=== PATIENT | female | born 1950 | race Caucasian/White ===

== ENCOUNTER 2018-10-05 18:49 | Emergency (ER) | payer MEDICARE, OTHER ==
[~2018-10-05] VITALS: Ht 152.4 cm; Wt 45.4 kg
[2018-10-05 20:23] LABS: BASOPHILS % (AUTO) 0 % (0-10); EOSINOPHILS # (AUTO) 0.1 10^3/uL (0.0-0.3); EOSINOPHILS % (AUTO) 1 % (0-10); HEMATOCRIT 42 % (35-52); HEMOGLOBIN 14.1 G/DL (11.5-16.0); LYMPHOCYTES # (AUTO) 1.5 X 10^3 (1.0-4.0); LYMPHOCYTES % (AUTO) 17 % (12-44); MEAN CORPUSCULAR HEMOGLOBIN 32 PG (25-34); MEAN CORPUSCULAR HGB CONC 34 G/DL (32-36); MEAN CORPUSCULAR VOLUME 94 FL (80-99); MEAN PLATELET VOLUME 9.8 FL (7.4-10.4); MONOCYTES # (AUTO) 0.9 X 10^3 (0.0-1.0); MONOCYTES % (AUTO) 10 % (0-12); NEUTROPHILS # (AUTO) 6.1 X 10^3 (1.8-7.8); NEUTROPHILS % (AUTO) 71 % (42-75); PLATELET COUNT 278 10^3/uL (130-400); RED CELL DISTRIBUTION WIDTH 14.3 % (10.0-14.5); WHITE BLOOD COUNT 8.6 10^3/uL (4.3-11.0)
[2018-10-05 20:23] LABS: BILIRUBIN,URINE NEGATIVE (NEGATIVE); CLARITY,URINE CLEAR; COLOR,URINE YELLOW; GLUCOSE, URINE (UA) NEGATIVE (NEGATIVE); KETONES,URINE NEGATIVE (NEGATIVE); LEUKOCYTE ESTERASE ,URINE NEGATIVE (NEGATIVE); NITRITE,URINE NEGATIVE (NEGATIVE); PH,URINE 7 (5-9); PROTEIN,URINE NEGATIVE (NEGATIVE); UROBILINOGEN,URINE NORMAL (NORMAL)
--- NOTE | 2018-10-05 20:26 | ED Back Pain ---
General Chief Complaint: Back Problems Stated Complaint: ABD/BACK PAIN Nursing Triage Note: PATIENT STATES THAT SHE HAS BEEN HAVING LOWER BACK/RIGHT HIP PAIN X1 WEEK. SHE WAS GIVEN TRAMADOL BUT IT HAS NOT HELPED. TODAY SHE BEGAN HAVING NAUSEA AND ABD PAIN. DENIES OTHER URINARY SYMPTOMS. Nursing Sepsis Screen: Possible Sepsis Risk Source of Information: Patient Exam Limitations: No Limitations History of Present Illness Date Seen by Provider: Oct 05, 2018 Time Seen by Provider: 20:23 Initial Comments To ER with right flank pain constant for one week. She's had some intermittent lower abdominal cramping midline. No dysuria. No bowel changes. No fevers or chills and no history of this. She is from [place], she is here for celebration of life for her son. She states that she was sleeping on a chair in the ICU for 4 days with him before he and she suspected initially that that was the cause of her pain. Location: Lumbar Spine Timing/Duration: 1 Week Severity: Moderate Pain/Injury Location: Back Associated Symptoms: lower back pain Allergies and Home Medications Allergies Coded Allergies: Sulfa (Sulfonamide Antibiotics) (Verified Allergy, Unknown, 10/05/18) Home Medications Hydrocodone Bit/Acetaminophen 1 Tab Tab, 1 EACH PO Q4-6HR PRN for PAIN-MODERATE Prescribed by: ALMAS MAGANA on 10/05/184 Patient Home Medication List Home Medication List Reviewed: Yes Review of Systems Constitutional: see HPI EENTM: see HPI Respiratory: no symptoms reported Cardiovascular: no symptoms reported Genitourinary: no symptoms reported Musculoskeletal: see HPI Skin: no symptoms reported Psychiatric/Neurological: No Symptoms Reported Past Ttktwyu-Iptyev-Sltxqf Hx Patient Social History Alcohol Use: Occasionally Uses Recreational Drug Use: No Smoking Status: Former Smoker 2nd Hand Smoke Exposure: No Recent Foreign Travel: No Contact w/Someone Who Travel: No Recent Infectious Disease Expo: No Past Medical History Surgeries: Yes (LUNG TRANSPLANT, COLON RESECTION) Gallbladder Respiratory: Yes COPD Cardiac: No Neurological: No Genitourinary: No Gastrointestinal: Yes Gastroesophageal Reflux Endocrine: Yes Hypothyroidsim Cancer: No Psychosocial: Yes Depression Physical Exam Vital Signs Vital Signs - First Documented 10/05/18 19:09 Temp 96.3 Pulse 95 Resp 20 B/P (MAP) 138/87 (104) Pulse Ox 97 Capillary Refill : Less Than 3 Seconds Height, Weight, BMI Height: 5'0" Weight: 100lbs. 0oz. 45.792484dn; BMI Method:Actual General Appearance: No Apparent Distress, WD/WN HEENT: PERRL/EOMI, TMs Normal Neck: Full Range of Motion, Normal Inspection Cardiovascular: Regular Rate, Rhythm, Normal Peripheral Pulses Respiratory: No Accessory Muscle Use, No Respiratory Distress Gastrointestinal: Normal Bowel Sounds, Non Tender, Soft Extremity: Normal Capillary Refill, Normal Inspection Neurologic/Psychiatric: Alert, Oriented x3 Skin: Normal Color, Warm/Dry Progress/Results/Core Measures Results/Orders Lab Results Laboratory Tests Test 10/05/18 20:11 10/05/18 20:15 Range/Units Urine Color YELLOW Urine Clarity CLEAR Urine pH 7 5-9 Urine Specific [place] 1.005 L 1.016-1.022 Urine Protein NEGATIVE NEGATIVE Urine Glucose (UA) NEGATIVE NEGATIVE Urine Ketones NEGATIVE NEGATIVE Urine Nitrite NEGATIVE NEGATIVE Urine Bilirubin NEGATIVE NEGATIVE Urine Urobilinogen NORMAL NORMAL MG/DL Urine Leukocyte Esterase NEGATIVE NEGATIVE Urine RBC (Auto) NEGATIVE NEGATIVE Urine RBC NONE /HPF Urine WBC NONE /HPF Urine Crystals NONE /LPF Urine Bacteria TRACE /HPF Urine Casts NONE /LPF Urine Mucus NEGATIVE /LPF Urine Culture Indicated NO Urine Opiates Screen NEGATIVE NEGATIVE Urine Oxycodone Screen NEGATIVE NEGATIVE Urine Methadone Screen NEGATIVE NEGATIVE Urine Propoxyphene Screen NEGATIVE NEGATIVE Urine Barbiturates Screen NEGATIVE NEGATIVE Ur Tricyclic Antidepressants Screen NEGATIVE NEGATIVE Urine Phencyclidine Screen NEGATIVE NEGATIVE Urine Amphetamines Screen NEGATIVE NEGATIVE Urine Methamphetamines Screen NEGATIVE NEGATIVE Urine Benzodiazepines Screen NEGATIVE NEGATIVE Urine Cocaine Screen NEGATIVE NEGATIVE Urine Cannabinoids Screen NEGATIVE NEGATIVE White Blood Count 8.6 4.3-11.0 10^3/uL Red Blood Count 4.44 4.35-5.85 10^6/uL Hemoglobin 14.1 11.5-16.0 G/DL Hematocrit 42 35-52 % Mean Corpuscular Volume 94 80-99 FL Mean Corpuscular Hemoglobin 32 25-34 PG Mean Corpuscular Hemoglobin Concent 34 32-36 G/DL Red Cell Distribution Width 14.3 10.0-14.5 % Platelet Count 278 130-400 10^3/uL Mean Platelet Volume 9.8 7.4-10.4 FL Neutrophils (%) (Auto) 71 42-75 % Lymphocytes (%) (Auto) 17 12-44 % Monocytes (%) (Auto) 10 0-12 % Eosinophils (%) (Auto) 1 0-10 % Basophils (%) (Auto) 0 0-10 % Neutrophils # (Auto) 6.1 1.8-7.8 X 10^3 Lymphocytes # (Auto) 1.5 1.0-4.0 X 10^3 Monocytes # (Auto) 0.9 0.0-1.0 X 10^3 Eosinophils # (Auto) 0.1 0.0-0.3 10^3/uL Basophils # (Auto) 0.0 0.0-0.1 10^3/uL Sodium Level 140 135-145 MMOL/L Potassium Level 3.5 L 3.6-5.0 MMOL/L Chloride Level 102 98-107 MMOL/L Carbon Dioxide Level 25 21-32 MMOL/L Anion Gap 13 5-14 MMOL/L Blood Urea Nitrogen 14 7-18 MG/DL Creatinine 0.95 0.60-1.30 MG/DL Estimat Glomerular Filtration Rate 58 BUN/Creatinine Ratio 15 Glucose Level 98 70-105 MG/DL Calcium Level 10.1 8.5-10.1 MG/DL Corrected Calcium 9.8 8.5-10.1 MG/DL Total Bilirubin 1.2 H 0.1-1.0 MG/DL Aspartate Amino Transf (AST/SGOT) 57 H 5-34 U/L Alanine Aminotransferase (ALT/SGPT) 28 0-55 U/L Alkaline Phosphatase 113 40-136 U/L Total Protein 7.4 6.4-8.2 GM/DL Albumin 4.4 3.2-4.5 GM/DL Lipase 29 8-78 U/L My Orders Orders - ALMAS MAGANA STANDPIPE TENDER Cbc With Automated Diff (10/05/18 20:11) Comprehensive Metabolic Panel (10/05/18 20:11) Ua Culture If Indicated (10/05/18 20:11) Ketorolac Injection (Toradol Injection) (10/05/18 20:30) Fentanyl Injection (Sublimaze Injection (10/05/18 20:30) Drug Screen Stat (Urine) (10/05/18 20:33) Ct Abdomen/Pelvis W (10/05/18 20:49) Iohexol Injection (Omnipaque 350 Mg/Ml 1 (10/05/18 21:00) Received Contrast (Hold Metformin- Contr (10/05/18 21:00) Ns (Ivpb) (Sodium Chloride 0.9% Ivpb Bag (10/05/18 21:00) Lipase (10/05/18 21:56) Rx-Hydrocodone/Apap 5-325 Mg (Rx-Vicodin (10/05/18 22:30) Medications Given in ED Current Medications Medications Dose Ordered Sig/Pooja Route Start Time Stop Time Status Last Admin Dose Admin Fentanyl Citrate 25 mcg ONCE ONCE IVP 10/05/18 20:30 10/05/18 20:31 DC 10/05/18 20:31 25 MCG Iohexol 100 ml ONCE ONCE IV 10/05/18 21:00 10/05/18 21:01 DC 10/05/18 21:10 60 ML Ketorolac Tromethamine 15 mg ONCE ONCE IVP 10/05/18 20:30 10/05/18 20:31 DC 10/05/18 20:30 15 MG Sodium Chloride 100 ml ONCE ONCE IV 10/05/18 21:00 10/05/18 21:01 DC 10/05/18 21:11 80 ML Vital Signs/I&O 10/05/18 19:09 Temp 96.3 Pulse 95 Resp 20 B/P (MAP) 138/87 (104) Pulse Ox 97 Blood Pressure Mean: 104 Departure Communication (Admissions) I discussed with the patient her pancreatic ductal dilatation and she is aware of this, states "yeah, theyre doing surgery for that" Impression Primary Impression: Back pain Disposition: 01 HOME, SELF-CARE Condition: Improved Departure-Patient Inst. Decision time for Depature: 22:22 Patient Instructions: Low Back Pain (DC) Add. Discharge Instructions: 1. Follow-up with your doctor next week 2. Stop taking the Ultram, start taking the hydrocodone. Return to ER for any concerns. All discharge instructions reviewed with patient and/or family. Voiced understanding. Scripts Hydrocodone Bit/Acetaminophen (Hydrocodone/Acetaminophen 5/325mg Tablet) 1 Tab Tab 1 EACH PO Q4-6HR PRN for PAIN-MODERATE MDD 10 for 3 Days, #14 TAB Prov: ALMAS MAGANA APRN 10/05/18 ALMAS MAGANA APRN Oct 05, 2018 20:26
[2018-10-05] MEDS ORDERED: KETOROLAC 30 MG/ML VIAL IVP ONE (20:30)
[2018-10-05] MEDS ORDERED: fentaNYL INJECTION 100 MCG/2 ML AMP IVP ONE (20:30)
[2018-10-05 20:31] LABS: BACTERIA,URINE TRACE /HPF
[2018-10-05 20:45] LABS: ALBUMIN 4.4 GM/DL (3.2-4.5); BILIRUBIN,TOTAL 1.2 MG/DL (0.1-1.0); CALCIUM 10.1 MG/DL (8.5-10.1); CREATININE SERUM 0.95 MG/DL (0.60-1.30); POTASSIUM 3.5 MMOL/L (3.6-5.0); TOTAL PROTEIN 7.4 GM/DL (6.4-8.2)
[2018-10-05 20:56] LABS: AMPHETAMINE SCREEN, URINE NEGATIVE (NEGATIVE); BARBITURATE SCREEN URINE NEGATIVE (NEGATIVE); BENZODIAZEPINES SCREEN URINE NEGATIVE (NEGATIVE); CANNABINOID SCREEN, URINE NEGATIVE (NEGATIVE); COCAINE SCREEN URINE NEGATIVE (NEGATIVE); METHADONE STAT NEGATIVE (NEGATIVE); METHAMPHETAMINE SCREEN URINE S NEGATIVE (NEGATIVE); OPIATE SCREEN URINE NEGATIVE (NEGATIVE); OXYCODONE STAT NEGATIVE (NEGATIVE); PROPOXYPHENE STAT NEGATIVE (NEGATIVE); TRICYCLIC ANTIDEPRESSANTS SCRE NEGATIVE (NEGATIVE)
[2018-10-05] MEDS ORDERED: NS 100 ML (IVPB) BAG IV ONE (21:00)
[2018-10-05] MEDS ORDERED: IOHEXOL 350 MG/ML 100 ML (OMNIPAQUE 350) VIAL IV ONE (21:00)
[2018-10-05] MEDS ORDERED: HOLD METFORMIN - RECEIVED CONTRAST 20 ML VIAL IV SCH (21:00)
--- NOTE | 2018-10-05 21:35 | Diagnostic Imaging Report ---
PROCEDURE: CT abdomen and pelvis with contrast. TECHNIQUE: Multiple contiguous axial images were obtained through the abdomen and pelvis after administration of intravenous contrast. Auto Exposure Controls were utilized during the CT exam to meet ALARA standards for radiation dose reduction. INDICATION: Lung transplants, abdominal and back pain COMPARISON: None FINDINGS: Nonspecific hyperlucency seen in the right base. The left lung base is clear. There is no infiltrate or effusion. The gallbladder surgically absent. Solid organs, vascular structures and small bowel are unremarkable. Postoperative changes seen involving the colon. There is some mild constipation primarily in the left midabdomen without obstruction, ileus or inflammation. Uterus is surgically absent. Distal ureters and urinary bladder are normal. The abdominal wall is intact. Osseous structures are age-appropriate. IMPRESSION: 1. Status post cholecystectomy. Not mentioned above, prominent intra-and extra bile ducts and pancreatic duct are seen. However, no obvious obstructing lesion is identified. Please correlate with the liver function test. Consider MRCP for further evaluation on a nonemergent basis. 2. Surgically absent uterus. 3. Status post bowel resection. There is mild constipation in the remaining colon. No obstruction or inflammation is seen. Dictated by: Dictated on workstation # [id number]
[2018-10-05] MEDS ORDERED: ACHD5005 PO (22:23)
[2018-10-05] MEDS ORDERED: RX-HYDROCODONE/APAP 5/325 MG #4 TAB PK PO PRN (22:30)
[2018-10-06 00:07] VITALS: BP 133/75
== END 2018-10-05 22:35 | disposition home or self-care (01) ==
LOC: EDUNIT# 18:49 → ER 18:51
DX: M54.5 Low back pain (principal); J44.9 Chronic obstructive pulmonary disease, unspecified; F32.9 Major depressive disorder, single episode, unspecified; K21.9 Gastro-esophageal reflux disease without esophagitis; E03.9 Hypothyroidism, unspecified; Z94.2 Lung transplant status; Z88.2 Allergy status to sulfonamides; Z87.891 Personal history of nicotine dependence; Z98.890 Other specified postprocedural states
CPT/HCPCS: 36415; 74177; 80053; 80306; 81000; 83690; 85025

== ENCOUNTER 2021-02-16 18:19 | Inpatient (IN) | payer MEDICARE ==
[~2021-02-16] VITALS: Ht 152 cm; Wt 45.5 kg
[~2021-02-16 18:19] MED LIST: ACHD5005 PO
--- NOTE | 2021-02-16 18:43 | ED Respiratory ---
General Stated Complaint: SOB,COUGH,UTI,COVID NEG Source: patient History of Present Illness Date Seen by Provider: Feb 16, 2021 Time Seen by Provider: 18:34 Initial Comments PT ARRIVES VIA POV--SENT HERE FROM [facility] PT IS HERE VISITING FROM [place] SINCE PT HAS HISTORY OF COPD AND S/P LUNG TRANSPLANT 5 YEARS AGO--LAST SAW TRANSPLANT DR 6 MONTHS AGO PT DOES NOT HAVE HOME O2 HAS NOT USED INHALER OR NEBULIZER FOR YEARS C/O COUGH AND SHORTNESS OF BREATH X 2-3 DAYS HAS HAD UTI SYMPTOMS FOR ABOUT 3 WEEKS HAS HAD NAUSEA, NO VOMITING, STOOLS HAVE BEEN LOOSE NO ABDOMINAL PAIN HAS HAD MILD HEADACHE NO CHEST PAIN NO SWELLING IN LEGS/FEET OR PAIN IN CALVES NO BODY ACHES NO LOSS OF TASTE OR SMELL HAD SUBJECTIVE FEVER AND SWEATS/CHILLS WENT TO [facility] TODAY FOR THIS PROBLEM, O2 SAT WAS 80% ON ROOM AIR, UP TO MID 90'S ON O2 AT 2L/NC--THEN SENT RAPID COVID AND FLU TESTS WERE NEGATIVE THERE PT WAS DX WITH UTI THERE BUT NO MEDICATIONS WERE GIVEN HAS NOT TAKEN ANYTHING FOR SYMPTOMS SYMPTOMS NO DIFFERENT TODAY HAS HAD COVID-19 VACCINE X 3 HAS ALSO HAD FLU VACCINE MISSED DOSES OF MEDICATIONS Allergies and Home Medications Allergies Coded Allergies: Sulfa (Sulfonamide Antibiotics) (Verified Allergy, Unknown, 10/05/18) Patient Home Medication List Hydrocodone Bit/Acetaminophen (Lortab 5 Mg Tablet) 1 Tab Tab, 1 EACH PO Q4-6HR PRN for PAIN-MODERATE Prescribed by: ALMAS MAGANA on 10/05/18 4899 Review of Systems Review of Systems Constitutional: see HPI, chills, diaphoresis, fever EENTM: see HPI Respiratory: see HPI, cough, short of breath Cardiovascular: No chest pain, No edema, No palpitations, No syncope Gastrointestinal: see HPI; No abdominal pain; diarrhea, nausea; No vomiting Genitourinary: see HPI, dysuria Musculoskeletal: no symptoms reported Skin: no symptoms reported Psychiatric/Neurological: See HPI, Headache Hematologic/Lymphatic: No Symptoms Reported Immunological/Allergic: see HPI, transplant Past Kzxkajw-Qtjrao-Oknvsq Hx Patient Social History Tobacco Use?: Yes Tobacco type used: Cigarettes Smoking Status: Former Smoker Substance use?: No Alcohol Use?: No Past Medical History Surgeries: Yes (LUNG TRANSPLANT, COLON RESECTION) Abdominal, Bowel Surgery, Gallbladder, Pneumonectomy Respiratory: Yes (LUNG TRANSPLANT FOR COPD) COPD Cardiac: Yes Hypertension 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 Genitourinary: Yes Bladder Infection Gastrointestinal: Yes (COLON RESECTION FOR ISCHEMIC BOWEL) Gastroesophageal Reflux Musculoskeletal: No Endocrine: Yes Hypothyroidsim HEENT: No Cancer: No Psychosocial: Yes Depression Integumentary: Yes (SHINGLES RIGHT ARM 09/2020) Blood Disorders: No Family Medical History SOCIAL HISTORY: -SMOKED 1-2 PPD, QUIT 5 YEARS AGO -DENIES ETOH -DENIES DRUG USE PAST SURGICAL HISTORY: -LEFT LUNG TRANSPLANT 5 YEARS AGO -COLON RESECTION OR ISCHEMIC BOWEL--STATES WHILE IN HOSPITAL FOR LUNG TRANSPLANT SURGERY, SHE DESCRIBES MULTIORGAN FAILURE AND STATES "MY COLON " AND SHE HAD COLON RESECTION AT THAT TIME Physical Exam Vital Signs - First Documented 02/16/21 18:34 Temp 36.5 Pulse 87 Resp 18 B/P (MAP) 152/72 (98) Pulse Ox 84 O2 Delivery Room Air Capillary Refill : Height: 5'0" Weight: 100lbs. 0oz. 45.167783bc; BMI Method:Actual General Appearance: WD/WN, no apparent distress, thin, other (DOES NOT APPEAR ILL OR TO BE IN ANY DISCOMFORT OR DISTRESS. ) HEENT: PERRL/EOMI Neck: normal inspection Respiratory: normal breath sounds, no respiratory distress, no accessory muscle use Cardiovascular: normal peripheral pulses, regular rate, rhythm, no edema, no JVD, no murmur Gastrointestinal: non tender, soft Extremities: normal inspection, no pedal edema, no calf tenderness, normal capillary refill Neurologic/Psychiatric: die barber II-XII nml as tested, no motor/sensory deficits, alert, normal mood/affect, oriented x 3 Skin: normal color, warm/dry Progress/Results/Core Measures Suspected Sepsis SIRS Temperature: Pulse: Respiratory Rate: Laboratory Tests 02/16/21 18:53: White Blood Count 9.1 Blood Pressure / Mean: Laboratory Tests 02/16/21 18:53: Creatinine 1.11, Platelet Count 224, Total Bilirubin 0.9 Results/Orders Lab Results Laboratory Tests Test 02/16/21 18:34 02/16/21 18:52 02/16/21 18:53 Range/Units Urine Color DARK YELLOW Urine Clarity CLEAR Urine pH 7.0 5-9 Urine Specific [place] 1.015 L 1.016-1.022 Urine Protein NEGATIVE NEGATIVE Urine Glucose (UA) NEGATIVE NEGATIVE Urine Ketones TRACE H NEGATIVE Urine Nitrite NEGATIVE NEGATIVE Urine Bilirubin NEGATIVE NEGATIVE Urine Urobilinogen 2.0 < = 1.0 MG/DL Urine Leukocyte Esterase 2+ H NEGATIVE Urine RBC (Auto) NEGATIVE NEGATIVE Urine RBC 0-2 /HPF Urine WBC 10-25 H /HPF Urine Squamous Epithelial Cells 0-2 /HPF Urine Renal Epithelial Cells NONE /HPF Urine Crystals NONE /LPF Urine Bacteria FEW H /HPF Urine Casts NONE /LPF Urine Mucus NEGATIVE /LPF Urine Culture Indicated YES Blood Gas Puncture Site L RADIAL Blood Gas Patient Temperature 36.9 Arterial Blood pH 7.44 H 7.37-7.43 Arterial Blood Partial Pressure CO2 43 35-45 MMHG Arterial Blood Partial Pressure O2 153 H 79-93 MMHG Arterial Blood HCO3 29 H 23-27 MMOL/L Arterial Blood Total CO2 29.9 21.0-31.0 MMOL/L Arterial Blood Oxygen Saturation 100 94-100 % Arterial Blood Base Excess 4.6 H -2.5-2.5 MMOL/L Cody Test YES-POS Blood Gas Ventilator Setting NO Blood Gas Inspired Oxygen 3 L White Blood Count 9.1 4.3-11.0 10^3/uL Red Blood Count 4.18 3.80-5.11 10^6/uL Hemoglobin 13.7 11.5-16.0 g/dL Hematocrit 41 35-52 % Mean Corpuscular Volume 99 80-99 fL Mean Corpuscular Hemoglobin 33 25-34 pg Mean Corpuscular Hemoglobin Concent 33 32-36 g/dL Red Cell Distribution Width 13.2 10.0-14.5 % Platelet Count 224 130-400 10^3/uL Mean Platelet Volume 12.5 H 9.0-12.2 fL Immature Granulocyte % (Auto) 0 % Neutrophils (%) (Auto) 66 42-75 % Lymphocytes (%) (Auto) 23 12-44 % Monocytes (%) (Auto) 8 0-12 % Eosinophils (%) (Auto) 2 0-10 % Basophils (%) (Auto) 0 0-10 % Neutrophils # (Auto) 6.0 1.8-7.8 10^3/uL Lymphocytes # (Auto) 2.0 1.0-4.0 10^3/uL Monocytes # (Auto) 0.7 0.0-1.0 10^3/uL Eosinophils # (Auto) 0.2 0.0-0.3 10^3/uL Basophils # (Auto) 0.0 0.0-0.1 10^3/uL Immature Granulocyte # (Auto) 0.0 0.0-0.1 10^3/uL Erythrocyte Sedimentation Rate 16 0-30 MM/HR Sodium Level 142 135-145 MMOL/L Potassium Level 2.9 L 3.6-5.0 MMOL/L Chloride Level 100 98-107 MMOL/L Carbon Dioxide Level 29 21-32 MMOL/L Anion Gap 13 5-14 MMOL/L Blood Urea Nitrogen 22 H 7-18 MG/DL Creatinine 1.11 0.60-1.30 MG/DL Estimat Glomerular Filtration Rate 48 BUN/Creatinine Ratio 20 Glucose Level 110 H 70-105 MG/DL Calcium Level 10.2 H 8.5-10.1 MG/DL Corrected Calcium 10.4 H 8.5-10.1 MG/DL Magnesium Level 1.2 L 1.6-2.4 MG/DL Total Bilirubin 0.9 0.1-1.0 MG/DL Aspartate Amino Transf (AST/SGOT) 15 5-34 U/L Alanine Aminotransferase (ALT/SGPT) 11 0-55 U/L Alkaline Phosphatase 52 40-136 U/L Total Creatine Kinase 35 29-168 U/L Creatine Kinase MB 1.3 <6.6 NG/ML Myoglobin 67.1 10.0-92.0 NG/ML Troponin I < 0.028 <0.028 NG/ML C-Reactive Protein High Sensitivity 0.15 0.00-0.50 MG/DL B-Type Natriuretic Peptide 81.7 <100.0 PG/ML Total Protein 6.3 L 6.4-8.2 GM/DL Albumin 3.7 3.2-4.5 GM/DL Procalcitonin 0.06 <0.10 NG/ML My Orders Orders - ALENA TRUJILLO DO Cbc With Automated Diff (02/16/21 18:37) Comprehensive Metabolic Panel (02/16/21 18:37) Blood Culture (02/16/21 18:37) Sputum Culture (02/16/21 18:37) Urinalysis (02/16/21 18:37) Urine Culture (02/16/21 18:37) Protime With Inr (02/16/21 18:37) Partial Thromboplastin Time (1/3/22 18:37) Chest 1 View, Ap/Pa Only (02/16/21 18:37) Ed Iv/Invasive Line Start (02/16/21 18:37) Ed Iv/Invasive Line Start (02/16/21 18:37) Ekg Tracing (02/16/21 18:37) Troponin I Desiree (02/16/21 18:37) Vital Signs Adult Sepsis Patie Q15M (02/16/21 18:37) O2 (02/16/21 18:37) Remove Rings In Anticipation O (02/16/21 18:37) Lactic Acid Analyzer (02/16/21 18:37) Monitor-Rhythm Ecg Trace Only (02/16/21 18:37) Arterial Blood Gas (02/16/21 18:37) Bnp [place] (02/16/21 18:37) Creatine Kinase (02/16/21 18:37) Creatine Kinase Mb (02/16/21 18:37) Hs C Reactive Protein (02/16/21 18:37) Magnesium (02/16/21 18:37) Procalcitonin (Pct) (02/16/21 18:37) Erythrocyte Sedimentation Rate (02/16/21 18:37) Myoglobin Serum (02/16/21 18:37) Ed Iv/Invasive Line Start (02/16/21 18:37) Lactated Ringers (Lr 1000 Ml Iv Solution (02/16/21 18:45) Ct Angio Chest W (02/16/21 19:31) Potassium Chloride (Tablet) (Klor Con Ta (02/16/21 19:45) Magnesium Oxide Tablet (Mag Ox Tablet) (02/16/21 19:45) Iohexol Injection (Omnipaque 350 Mg/Ml 1 (02/16/21 19:45) Received Contrast (Hold Metformin- Contr (02/16/21 19:45) Ns (Ivpb) (Sodium Chloride 0.9% Ivpb Bag (02/16/21 19:45) Covid-19 External Lab Results (02/16/21 20:26) Medications Given in ED Current Medications Medications Dose Ordered Sig/Pooja Route Start Time Stop Time Status Last Admin Dose Admin Iohexol 100 ml ONCE ONCE IV 02/16/21 19:45 02/16/21 19:46 DC 02/16/21 19:56 52 ML Lactated Ringer's 1,000 ml @ 0 mls/hr Q0M ONCE IV 02/16/21 18:45 02/16/21 18:46 DC 02/16/21 19:03 0 MLS/HR Magnesium Oxide 1,600 mg ONCE ONCE PO 02/16/21 19:45 02/16/21 19:46 DC 02/16/21 19:47 1,600 MG Potassium Chloride 40 meq ONCE ONCE PO 02/16/21 19:45 02/16/21 19:46 DC 02/16/21 19:47 40 MEQ Sodium Chloride 100 ml ONCE ONCE IV 02/16/21 19:45 02/16/21 19:46 DC 02/16/21 19:58 80 ML Vital Signs/I&O 02/16/21 18:34 Temp 36.5 Pulse 87 Resp 18 B/P (MAP) 152/72 (98) Pulse Ox 84 O2 Delivery Room Air Capillary Refill : Progress Note : Progress Note O2 SAT ON ARRIVAL 84% ON ROOM AIR. PLACED ON O2 AT 3L/NC AND SATS UP TO 98% SEPSIS PROTOCOL INITIATED NO COUGH NO DYSPNEA NO FEVER ECG Initial ECG Impression Date: Feb 16, 2021 Initial ECG Impression Time: 18:50 Initial ECG Rate: 74 Initial ECG Rhythm: Normal Sinus Initial ECG Impression: Nonspecific Changes Initial ECG Comparisson: No Previous ECG Available Diagnostic Imaging Comments CXR--PER RADIOLOGIST REPORT AT 193 INDICATION: Cough and hypoxia. Frontal chest obtained at 07:14 p.m. The heart and mediastinal silhouette are unremarkable. There is hyperinflation compatible with COPD. There is some volume loss in the left hemithorax. There is no consolidation or pneumothorax or pleural fluid. IMPRESSION: COPD changes with some volume loss in the left hemithorax. No consolidation or pleural fluid. CT CHEST ANGIOGRAM--PER RADIOLOGIST REPORT AT 2023 FINDINGS: Emphysematous disease in right lung is noted. The right lung is otherwise clear. There are mild emphysematous changes involving the left upper lobe. There is mild groundglass opacification centrally involving the left upper lobe and left lower lobe. There is development of small parenchymal bands in the periphery of the left lung base region which may represent atelectasis or scarring. There is no pleural effusion or pneumothorax. Pulmonary bronchi are unremarkable. There is no mediastinal or hilar lymphadenopathy. There is no axillary lymphadenopathy. Surgical clips in the left hilar region are noted likely related to patient's history of left lung transplant. There is no thoracic aortic aneurysm or dissection. There is no evidence of pulmonary embolism. The gallbladder is surgically absent. There are surgical clips in the left upper quadrant near the stomach. The remainder of the visualized upper abdominal structures show no significant abnormality. There are hypertrophic spurs involving the thoracic spine. There is ill-defined prominence of the left thyroid lobe. IMPRESSION: 1: There is no evidence of pulmonary embolism. There is no thoracic aortic aneurysm or dissection. 2: There are emphysematous lung changes seen with the right lung much more than the left. 3: There is mild groundglass opacification centrally throughout the left lung which is nonspecific. Infectious process or inflammatory process cannot be completely excluded. Comparison to outside chest CT scans would help better evaluate for chronicity. 4: There is no right lung infiltrate. 5: Postop changes related to the left lung transplant. 6: There is prominence of the left thyroid lobe which is ill-defined. Nonemergent thyroid ultrasound is suggested for further evaluation. Reviewed: Reviewed by Me Departure Impression Primary Impression: COPD EXACERBATION WITH HYPOXIA Additional Impressions: Bronchitis Hypoxia S/P lung transplant Departure-Patient Inst. Referrals: NO,LOCAL PHYSICIAN (PCP/Family) Primary Care Physician ALENA TRUJILLO DO Feb 16, 2021 18:43
[2021-02-16] MEDS ORDERED: LACTATED RINGERS 1,000 ML IV ONE (18:45)
[2021-02-16 19:02] LABS: ABG BASE EXCESS 4.6 MMOL/L (-2.5-2.5); ABG OXYGEN SATURATION 100 % (94-100); ABG PCO2 43 MMHG (35-45); ABG PH 7.44 (7.37-7.43); ABG PO2 153 MMHG (79-93); ABG TCO2 29.9 MMOL/L (21.0-31.0)
[2021-02-16 19:03] LABS: ALLENS TEST YES-POS; INSPIRED O2 3 L; PATIENT TEMP 36.9; VENTILATOR NO
[2021-02-16 19:10] LABS: BASOPHILS % (AUTO) 0 % (0-10); EOSINOPHILS # (AUTO) 0.2 10^3/uL (0.0-0.3); EOSINOPHILS % (AUTO) 2 % (0-10); HEMATOCRIT 41 % (35-52); HEMOGLOBIN 13.7 g/dL (11.5-16.0); LYMPHOCYTES % (AUTO) 23 % (12-44); MEAN CORPUSCULAR HEMOGLOBIN 33 pg (25-34); MEAN CORPUSCULAR HGB CONC 33 g/dL (32-36); MEAN CORPUSCULAR VOLUME 99 fL (80-99); MEAN PLATELET VOLUME 12.5 fL (9.0-12.2); MONOCYTES # (AUTO) 0.7 10^3/uL (0.0-1.0); MONOCYTES % (AUTO) 8 % (0-12); NEUTROPHILS % (AUTO) 66 % (42-75); PLATELET COUNT 224 10^3/uL (130-400); WHITE BLOOD COUNT 9.1 10^3/uL (4.3-11.0)
[2021-02-16 19:13] LABS: BILIRUBIN,URINE NEGATIVE (NEGATIVE); CLARITY,URINE CLEAR; COLOR,URINE DARK YELLOW; GLUCOSE, URINE (UA) NEGATIVE (NEGATIVE); KETONES,URINE TRACE (NEGATIVE); LEUKOCYTE ESTERASE ,URINE 2+ (NEGATIVE); NITRITE,URINE NEGATIVE (NEGATIVE); PROTEIN,URINE NEGATIVE (NEGATIVE)
[2021-02-16 19:21] LABS: ALBUMIN 3.7 GM/DL (3.2-4.5); CHLORIDE 100 MMOL/L (98-107); POTASSIUM 2.9 MMOL/L (3.6-5.0); SODIUM 142 MMOL/L (135-145)
[2021-02-16 19:22] LABS: CALCIUM 10.2 MG/DL (8.5-10.1)
[2021-02-16 19:23] LABS: GLUCOSE 110 MG/DL (70-105)
[2021-02-16 19:24] LABS: TOTAL PROTEIN 6.3 GM/DL (6.4-8.2)
[2021-02-16 19:25] LABS: BACTERIA,URINE FEW /HPF; RBC,URINE 0-2 /HPF; SQUAMOUS EPITHELIAL CELL,UR 0-2 /HPF
[2021-02-16 19:25] LABS: BILIRUBIN,TOTAL 0.9 MG/DL (0.1-1.0); CARBON DIOXIDE 29 MMOL/L (21-32)
[2021-02-16 19:27] LABS: ALKALINE PHOSPHATASE 52 U/L (40-136); CREATININE SERUM 1.11 MG/DL (0.60-1.30); GFR ESTIMATED 48
[2021-02-16 19:28] LABS: BUN/CREATININE RATIO 20
[2021-02-16 19:29] LABS: ERYTHROCYTE SEDIMENTATION RATE 16 MM/HR (0-30)
--- NOTE | 2021-02-16 19:29 | Diagnostic Imaging Report ---
INDICATION: Cough and hypoxia. Frontal chest obtained at 07:14 p.m. The heart and mediastinal silhouette are unremarkable. There is hyperinflation compatible with COPD. There is some volume loss in the left hemithorax. There is no consolidation or pneumothorax or pleural fluid. IMPRESSION: COPD changes with some volume loss in the left hemithorax. No consolidation or pleural fluid. Dictated by: Dictated on workstation # [id number]
[2021-02-16 19:30] LABS: ALANINE AMINOTRANSFERASE 11 U/L (0-55); CREATINE KINASE 35 U/L (29-168); MAGNESIUM 1.2 MG/DL (1.6-2.4)
[2021-02-16 19:38] LABS: CREATINE KINASE MB 1.3 NG/ML (<6.6)
[2021-02-16] MEDS ORDERED: IOHEXOL 350 MG/ML 100 ML (OMNIPAQUE 350) VIAL IV ONE (19:45)
[2021-02-16] MEDS ORDERED: KCL 10 MEQ TAB (MICRO K) PO ONE (19:45)
[2021-02-16] MEDS ORDERED: HOLD METFORMIN - RECEIVED CONTRAST 20 ML VIAL IV SCH (19:45)
[2021-02-16] MEDS ORDERED: NS 100 ML (IVPB) BAG IV ONE (19:45)
[2021-02-16] MEDS ORDERED: MAGNESIUM OXIDE (MAG-OX)400 MG TAB PO ONE (19:45)
--- NOTE | 2021-02-16 20:19 | Diagnostic Imaging Report ---
CLINICAL INDICATION: Patient with shortness of air and cough for 2 days. 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 Negative for COVID. EXAM: CT angiogram of the chest performed with 52 cc Omnipaque 350 IV contrast. Coronal and oblique MIP images of the vasculature were created to better evaluate anatomy. Auto Exposure Controls were utilized during the CT exam to meet ALARA standards for radiation dose reduction. COMPARISON: CT scan of the abdomen and pelvis with contrast dated 10/05/2018. FINDINGS: Emphysematous disease in right lung is noted. The right lung is otherwise clear. There are mild emphysematous changes involving the left upper lobe. There is mild groundglass opacification centrally involving the left upper lobe and left lower lobe. There is development of small parenchymal bands in the periphery of the left lung base region which may represent atelectasis or scarring. There is no pleural effusion or pneumothorax. Pulmonary bronchi are unremarkable. There is no mediastinal or hilar lymphadenopathy. There is no axillary lymphadenopathy. Surgical clips in the left hilar region are noted likely related to patient's history of left lung transplant. There is no thoracic aortic aneurysm or dissection. There is no evidence of pulmonary embolism. The gallbladder is surgically absent. There are surgical clips in the left upper quadrant near the stomach. The remainder of the visualized upper abdominal structures show no significant abnormality. There are hypertrophic spurs involving the thoracic spine. There is ill-defined prominence of the left thyroid lobe. IMPRESSION: 1: There is no evidence of pulmonary embolism. There is no thoracic aortic aneurysm or dissection. 2: There are emphysematous lung changes seen with the right lung much more than the left. 3: There is mild groundglass opacification centrally throughout the left lung which is nonspecific. Infectious process or inflammatory process cannot be completely excluded. Comparison to outside chest CT scans would help better evaluate for chronicity. 4: There is no right lung infiltrate. 5: Postop changes related to the left lung transplant. 6: There is prominence of the left thyroid lobe which is ill-defined. Nonemergent thyroid ultrasound is suggested for further evaluation. Dictated by: Dictated on workstation # [id number]
[2021-02-16] MEDS ORDERED: methylPREDNISolone 125 MG (Solu-MEDROL) VIAL IVP ONE (20:30)
[2021-02-16] MEDS ORDERED: AZITHROMYCIN INJECTION 500 MG in NS (IVPB) 250 ML IV STA (20:42)
[2021-02-16] MEDS ORDERED: cefTRIAXone 1 GM PRE-MIX 50 ML IV STA (20:42)
[2021-02-16] MEDS ORDERED: ONDANSETRON 4 MG/2 ML (SDV) Z0FRAN IV PRN (21:30)
[2021-02-16] MEDS ORDERED: polyethylene glycoL POWDER 17 GM (MIRALAX) PACK PO PRN (21:30)
[2021-02-16] MEDS ORDERED: BISACODYL 10 MG SUPP (DULCOLAX) PR PRN (21:30)
[2021-02-16] MEDS ORDERED: NS IV 1000 ML 1,000 ML IV SCH (21:30)
[2021-02-16] MEDS ORDERED: LACTULOSE SYRUP 10GM/15ML (ENULOSE) 30ML UDC PO PRN (21:30)
[2021-02-16] MEDS ORDERED: ANTACID SUSP 30 ML UDC (MYLANTA) PO PRN (21:30)
[2021-02-16] MEDS ORDERED: morphine INJ 4 MG/ML 1 ML (VIAL/SYRINGE) IV PRN (21:30)
[2021-02-16] MEDS ORDERED: diphenhydrAMINE 50 MG/ML INJ (BENADRYL) IVP PRN (21:30)
[2021-02-16] MEDS ORDERED: ACETAMINOPHEN 325 MG TABLET PO PRN (21:30)
[2021-02-16] MEDS ORDERED: HYDROcodone/APAP 5 MG/325 MG (LORTAB) TAB PO PRN (21:30)
[2021-02-16] MEDS ORDERED: MILK OF MAGNESIA 400 MG/5 ML 30 ML UDC PO PRN (21:30)
[2021-02-16] MEDS ORDERED: MELATONIN 3 MG TABLET PO PRN (21:30)
[2021-02-16] MEDS ORDERED: CALCIUM CARBONATE 500 MG (TUMS) TAB.CHEW PO PRN (21:30)
[2021-02-16 21:31] VITALS: BP 172/83
[2021-02-16 21:32] LABS: PROTHROMBIN TIME PATIENT 13.6 SEC (12.2-14.7)
[2021-02-16] MEDS: ENOXAPARIN 40 MG/0.4 ML (LOVENOX) SYR SC SCH (22:05)
[2021-02-16 23:25] VITALS: BP 117/68
[2021-02-17] MEDS: IBUPROFEN TABLET 200 MG TAB PO SCH ×4 (00:07→17:40)
[2021-02-17] MEDS: methylPREDNISolone 40 MG/ML (Solu-MEDROL) VIAL IV SCH ×4 (00:07→17:40)
[2021-02-17] MEDS ORDERED: RT-ALBUTEROL/IPRATROPIUM 3 ML (DUONEB) VIAL INH SCH (03:00)
[2021-02-17 03:43] VITALS: BP 145/76
[2021-02-17] MEDS ORDERED: RT-ALBUTEROL HFA 8.5 GM INHALER IH SCH (06:00)
[2021-02-17 06:09] LABS: BASOPHILS % (AUTO) 0 % (0-10); EOSINOPHILS % (AUTO) 0 % (0-10); HEMATOCRIT 41 % (35-52); HEMOGLOBIN 13.7 g/dL (11.5-16.0); LYMPHOCYTES # (AUTO) 0.7 10^3/uL (1.0-4.0); LYMPHOCYTES % (AUTO) 9 % (12-44); MEAN CORPUSCULAR HEMOGLOBIN 33 pg (25-34); MEAN CORPUSCULAR HGB CONC 33 g/dL (32-36); MEAN CORPUSCULAR VOLUME 100 fL (80-99); MEAN PLATELET VOLUME 12.2 fL (9.0-12.2); MONOCYTES # (AUTO) 0.1 10^3/uL (0.0-1.0); MONOCYTES % (AUTO) 1 % (0-12); NEUTROPHILS # (AUTO) 7.3 10^3/uL (1.8-7.8); NEUTROPHILS % (AUTO) 89 % (42-75); PLATELET COUNT 204 10^3/uL (130-400); WHITE BLOOD COUNT 8.2 10^3/uL (4.3-11.0)
[2021-02-17 06:28] LABS: ALBUMIN 3.5 GM/DL (3.2-4.5)
[2021-02-17 06:29] LABS: POTASSIUM 4.4 MMOL/L (3.6-5.0)
[2021-02-17 06:30] LABS: CALCIUM 9.5 MG/DL (8.5-10.1)
[2021-02-17 06:31] LABS: TOTAL PROTEIN 6.3 GM/DL (6.4-8.2)
[2021-02-17 06:33] LABS: BILIRUBIN,TOTAL 0.5 MG/DL (0.1-1.0)
[2021-02-17 06:35] LABS: CREATININE SERUM 1.17 MG/DL (0.60-1.30)
[2021-02-17 07:15] LABS: BAND NEUTROPHILS 0 %; BASOPHILS % (MANUAL) 0 %; EOSINOPHILS % (MANUAL) 0 %; LYMPHOCYTES % (MANUAL) 12 %; MONOCYTES % (MANUAL) 4 %; NEUTROPHILS % (MANUAL) 84 %; RBC MORPH NORMAL
[2021-02-17 07:49] VITALS: BP 139/97
--- NOTE | 2021-02-17 08:41 | History & Physical ---
MERA HILL 02/17/21 0841: History of Present Illness History of Present Illness Reason for visit/HPI This is a 70 y/o female with a PMH of COPD s/p lung transplant 5 years ago who presents with cough, SOB, and hypoxia. Pt presented to urgent care on the evening of 02/16/21 after having symptoms of cough, SOB, and subjective fevers for the past 2-3 days. She was found to have an O2 sat in the 80's that improved to the 90's on 2 L O2 by [place]. She was then transferred to this facility, and rapid flu and COVID tests were negative. PT was also found to have a UTI at the [facility], but was not placed on any medications at that time and culture is still pending. Today, the patient states that her condition has improved somewhat, though she is still feeling somewhat nauseous and coughing a bit. She states that her breathing is fine when she is laying down, but she normally has more issues when she sits up and she has been avoiding that. She also c/o loose stools, and poor sleep. Date of Admission Feb 16, 2021 at 20:45 Time Seen by a Provider: 08:00 I consulted on this patient on 02/17/21 08:36 Attending Physician Lucila Alejandro DO Admitting Physician No,Local Physician Consult Allergies and Home Medications Allergies Coded Allergies: Sulfa (Sulfonamide Antibiotics) (Verified Allergy, Unknown, 10/05/18) Patient Home Medication List Home Medication List Reviewed: Yes Albuterol Sulfate (Ventolin Hfa) 18 Gm Hfa.aer.ad, 2 PUFF INH Q6H PRN for SHORTNESS OF BREATH, (Reported) Entered as Reported by: LIA GONZALEZ on 02/17/211104 Last Action: Continued Alendronate Sodium (Alendronate Sodium) 70 Mg Tablet, 70 MG PO MON, (Reported) Entered as Reported by: LIA GONZALEZ on 02/17/21 110 Last Action: Held Amlodipine Besylate (Amlodipine Besylate) 5 Mg Tablet, 5 MG PO DAILY, (Reported) Entered as Reported by: LUCILA ALEJANDRO on 02/17/21 1018 Last Action: Reviewed Azathioprine (Imuran) 50 Mg Tablet, 75 MG PO DAILY, (Reported) Entered as Reported by: LIA GONZALEZ on 02/17/211104 Last Action: Continued Calcium Carbonate/Vitamin D3 (Calcium 600 + Vit D 400 Tablet) 1 Each Tablet, 1 EACH PO BID, (Reported) Entered as Reported by: LIA GONZALEZ on 02/17/211104 Last Action: Continued Cyclosporine, Modified (Cyclosporine Modified) 25 Mg Capsule, 25 MG PO DAILY, (Reported) Entered as Reported by: LIA GONZALEZ on 02/17/211104 Last Action: Converted Cyclosporine, Modified (Cyclosporine Modified) 25 Mg Capsule, 50 MG PO HS, (Reported) Entered as Reported by: LIA GONZALEZ on 02/17/211104 Last Action: Converted Cyclosporine, Modified (Cyclosporine Modified) 100 Mg Capsule, 100 MG PO BID, (Reported) Entered as Reported by: LIA GONZALEZ on 02/17/211104 Last Action: Converted Dapsone (Dapsone) 25 Mg Tablet, 25 MG PO MO,WE,FR, (Reported) Entered as Reported by: LIA GONZALEZ on 02/17/211104 Last Action: Converted Duloxetine HCl (Duloxetine HCl) 30 Mg Capsule.dr, 30 MG PO HS, (Reported) Entered as Reported by: LUCILA ALEJANDRO on 02/17/211017 Last Action: Reviewed Duloxetine HCl (Duloxetine HCl) 60 Mg Capsule.dr, 60 MG PO DAILY, (Reported) Entered as Reported by: LUCILA ALEJANDRO on 02/17/211017 Last Action: Reviewed Levothyroxine Sodium (Levothyroxine Sodium) 75 Mcg Tablet, 37.5 MCG PO DAILY, (Reported) Entered as Reported by: LIA GONZALEZ on 02/17/211104 Last Action: Continued Pantoprazole Sodium (Pantoprazole Sodium) 40 Mg Tablet.dr, 40 MG PO DAILY, (Reported) Entered as Reported by: LUCILA ALEJANDRO on 02/17/211017 Last Action: Reviewed Prednisone (Prednisone) 5 Mg Tablet, 5 MG PO DAILY, (Reported) Entered as Reported by: LIA GONZALEZ on 02/17/211104 Last Action: Held Quetiapine Fumarate (Quetiapine Fumarate) 50 Mg Tablet, 25 MG PO HS, (Reported) Entered as Reported by: LIA GONZALEZ on 02/17/211104 Last Action: Converted Vit A/Vit C/Vit E/Zinc/Copper (Eye Multivitamin Tablet) 1 Each Tablet, 1 EACH PO DAILY, (Reported) Entered as Reported by: LIA GONZALEZ on 02/17/21 1105 Last Action: Held Discontinued Medications Hydrocodone Bit/Acetaminophen (Lortab 5 Mg Tablet) 1 Tab Tab, 1 EACH PO Q4-6HR PRN for PAIN-MODERATE Discontinued Reason: Duplicate Order Prescribed by: ALMAS MAGANA on 10/05/18 2223 Last Action: Discontinued Levothyroxine Sodium (Levothyroxine Sodium) 75 Mcg Tablet, 37.5 MCG PO DAILY Discontinued Reason: Duplicate Order Prescribed by: LUCILA ALEJANDRO on 02/17/21 1020 Last Action: Discontinued Past Guuacje-Lefvao-Ggxtae Hx Patient Social History Tobacco Use?: No Tobacco type used: Cigarettes Smoking Status: Former Smoker (1-2 PPD for 48 years. Quit 5 years ago before lung transplant) Smokeless Tobacco Frequency: Never a User Substance use?: No Alcohol Use?: Yes Alcohol type: Beer, Wine Alcohol Frequency: Rarely Pt feels they are or have been: No Immunizations Up To Date Date of Influenza Vaccine: Feb 27, 2020 First/Initial COVID19 Vaccinat: 2020 Second COVID19 Vaccination Jerome: 2020 Current Status status: No Advance Directives: No Advance Directive Location: Home Communicates: Verbally Primary Language: Turkish Preferred Spoken Language: Turkish Is interpretation needed?: No Sensory deficits: Vision impairment Past Medical History Surgeries: Abdominal, Bowel Surgery (Hx of Colon resection for Ischemic Bowel 5 years ago), Gallbladder, Pneumonectomy (Lung transplant 5 years ago) COPD Hypertension HR INTERN History: Menopausal Bladder Infection Gastroesophageal Reflux Hypothyroidsim Depression Blood Disorders: No Review of Systems Constitutional: fever, weakness EENTM: throat pain; No hearing loss, No eye pain Respiratory: cough, dyspnea on exertion, short of breath; No wheezing Cardiovascular: no symptoms reported Gastrointestinal: No abdominal pain, No constipation, No diarrhea; nausea; No vomiting Genitourinary: No discharge, No dysuria; frequency; No hematuria : No Musculoskeletal: No muscle pain, No muscle stiffness Skin: No change in color, No dryness; pruritus (Right arm. Pt believes this is secondary to Hx of Shingles in same arm) Psychiatric/Neurological: Denies Anxiety, Denies Depressed, Denies Headache Physical Exam Vital Signs Vital Signs - First Documented 02/16/21 02/16/21 18:34 21:07 Temp 36.5 Pulse 87 Resp 18 B/P (MAP) 152/72 (98) Pulse Ox 84 O2 Delivery Room Air O2 Flow Rate 2.00 Capillary Refill : Less Than 3 Seconds Height, Weight, BMI Height: 5'0" Weight: 100lbs. 0oz. 45.645545gs; 19.56 BMI Method:Actual General Appearance: No Apparent Distress, WD/WN Eyes: Bilateral Eye Normal Inspection, Bilateral Eye PERRL, Bilateral Eye EOMI HEENT: PERRL/EOMI Neck: Normal Inspection, Non Tender; No Carotid Bruit Respiratory: Chest Non Tender, No Accessory Muscle Use, No Respiratory Distress, Crackles Cardiovascular: Regular Rate, Rhythm, No Edema, No Gallop, No Murmur Gastrointestinal: Normal Bowel Sounds, Non Tender, Soft Rectal: Deferred Extremity: Normal Capillary Refill, Normal Inspection, Non Tender Neurologic/Psychiatric: Alert, Oriented x3 Skin: Normal Color, Warm/Dry Lymphatic: No Adenopathy Assessment/Plan Assessment and Plan This is a 70 y/o female visiting the area from [place] with a PMH of COPD s/p lung transplant 5 years ago presenting with an apparent exacerbation of COPD symptoms. The patient currently has a negative rapid flu and COVID test, but these results are being confirmed. In addition, she has a UA c/w UTI with cuture pending. Problems: (1) COPD exacerbation Onset Date: ~ 02/2021 Status: Acute Assessment & Plan: - likely 2/2 viral URI - w/o chronic respiratory failure, as she has no home O2 requirement - AB.44/43/29/153/97 - CXR 02/16: 1: COPD changes with some volume loss in the left hemithorax. No consolidation or pleural fluid. - CT Chest 02/16: 1: There is no evidence of pulmonary embolism. There is no thoracic aortic aneurysm or dissection. 2: There are emphysematous lung changes seen with the right lung much more than the left. 3: There is mild groundglass opacification centrally throughout the left lung which is nonspecific. Infectious process or inflammatory process cannot be completely excluded. Comparison to outside chest CT scans would help better evaluate for chronicity. 4: There is no right lung infiltrate. 5: Postop changes related to the left lung transplant. 6: There is prominence of the left thyroid lobe which is ill-defined. Nonemergent thyroid ultrasound is suggested for further evaluation. - Sputum culture need not be performed given unreliable results and interpretations, and low suspicions for pseudomonas - x5 days steroids and azithro til 02/20/21. Began 02/16/21 - supplemental O2, goal sat 88-92% (2) UTI (urinary tract infection) Onset Date: ~ 02/2021 Status: Acute Qualifiers: Qualified Codes: N30.00 - Acute cystitis without hematuria Assessment & Plan: -UA 02/16/2021: 2+ leuk est, culture pending -start ceftriaxone; patient with sulfa allergy -instructed patient to drink plenty of fluids (3) Depression Status: Chronic Qualifiers: Qualified Codes: F32.A - Depression, unspecified Assessment & Plan: - resumed home meds - OP psych f/u (4) Insomnia Status: Chronic Qualifiers: Qualified Codes: G47.00 - Insomnia, unspecified Assessment & Plan: - holding home meds for now; restart on discharge - OP psych f/u (5) Hypothyroidism Status: Chronic Qualifiers: Qualified Codes: E03.9 - Hypothyroidism, unspecified Assessment & Plan: -resumed home meds (6) Hypertension Status: Chronic Qualifiers: Qualified Codes: I10 - Essential (primary) hypertension Assessment & Plan: -resumed home meds Admission Diagnosis COPD Exacerbation Admission Status: Inpatient Order (span 2 midnights) Reason for Inpatient Admission: COPD exacerbation LUCILA ALEJANDRO 02/18/21 0611: History of Present Illness History of Present Illness Reason for visit/HPI CC: SOB HPI: 70 yr WF ex- and mother of my current clinic pt. Pt presents to ER with SOB for past two weeks. Pt has received both Covid vaccines and booster. Pt has history of COPD and previous lung transplant 5 years ago. Pt doesn't use oxygen or inhaler at home. Pt doesn't take anti-rejection medications. She does feel better but her lungs need more time. I will help lock her IV fluid. Pt is on Rocephin for UTI and Azithromycin to cover for atypical pneumonia. She is requiring IV steroids. Allergies and Home Medications Allergies Coded Allergies: Sulfa (Sulfonamide Antibiotics) (Verified Allergy, Unknown, 10/05/18) Patient Home Medication List Home Medication List Reviewed: Yes Albuterol Sulfate (Ventolin Hfa) 18 Gm Hfa.aer.ad, 2 PUFF INH Q6H PRN for SHORTNESS OF BREATH, (Reported) Entered as Reported by: LIA GONZALEZ on 02/17/211104 Last Action: Continued Alendronate Sodium (Alendronate Sodium) 70 Mg Tablet, 70 MG PO MON, (Reported) Entered as Reported by: LIA GONZALEZ on 02/17/211104 Last Action: Held Amlodipine Besylate (Amlodipine Besylate) 5 Mg Tablet, 5 MG PO DAILY, (Reported) Entered as Reported by: LUCILA ALEJANDRO on 02/17/211017 Last Action: Reviewed Azathioprine (Imuran) 50 Mg Tablet, 75 MG PO DAILY, (Reported) Entered as Reported by: LIA GONZALEZ on 02/17/211104 Last Action: Continued Calcium Carbonate/Vitamin D3 (Calcium 600 + Vit D 400 Tablet) 1 Each Tablet, 1 EACH PO BID, (Reported) Entered as Reported by: LIA GONZALEZ on 02/17/211104 Last Action: Continued Cyclosporine, Modified (Cyclosporine Modified) 25 Mg Capsule, 25 MG PO DAILY, (Reported) Entered as Reported by: LIA GONZALEZ on 02/17/211104 Last Action: Converted Cyclosporine, Modified (Cyclosporine Modified) 25 Mg Capsule, 50 MG PO HS, (Reported) Entered as Reported by: LIA GONZALEZ on 02/17/211104 Last Action: Converted Cyclosporine, Modified (Cyclosporine Modified) 100 Mg Capsule, 100 MG PO BID, (Reported) Entered as Reported by: LIA GONZALEZ on 02/17/211104 Last Action: Converted Dapsone (Dapsone) 25 Mg Tablet, 25 MG PO MO,WE,FR, (Reported) Entered as Reported by: LIA GONZALEZ on 02/17/211104 Last Action: Converted Duloxetine HCl (Duloxetine HCl) 30 Mg Capsule.dr, 30 MG PO HS, (Reported) Entered as Reported by: LUCILA ALEJANDRO on 02/17/211017 Last Action: Reviewed Duloxetine HCl (Duloxetine HCl) 60 Mg Capsule.dr, 60 MG PO DAILY, (Reported) Entered as Reported by: LUCILA ALEJANDRO on 02/17/211017 Last Action: Reviewed Levothyroxine Sodium (Levothyroxine Sodium) 75 Mcg Tablet, 37.5 MCG PO DAILY, (Reported) Entered as Reported by: LIA GONZALEZ on 02/17/211104 Last Action: Continued Pantoprazole Sodium (Pantoprazole Sodium) 40 Mg Tablet.dr, 40 MG PO DAILY, (Reported) Entered as Reported by: LUCILA ALEJANDRO on 02/17/21 1018 Last Action: Reviewed Prednisone (Prednisone) 5 Mg Tablet, 5 MG PO DAILY, (Reported) Entered as Reported by: LIA GONZALEZ on 02/17/211104 Last Action: Held Quetiapine Fumarate (Quetiapine Fumarate) 50 Mg Tablet, 25 MG PO HS, (Reported) Entered as Reported by: LIA GONZALEZ on 02/17/211104 Last Action: Converted Vit A/Vit C/Vit E/Zinc/Copper (Eye Multivitamin Tablet) 1 Each Tablet, 1 EACH PO DAILY, (Reported) Entered as Reported by: LIA GONZALEZ on 02/17/211104 Last Action: Held Discontinued Medications Hydrocodone Bit/Acetaminophen (Lortab 5 Mg Tablet) 1 Tab Tab, 1 EACH PO Q4-6HR PRN for PAIN-MODERATE Discontinued Reason: Duplicate Order Prescribed by: ALMAS MAGANA on 10/05/183 Last Action: Discontinued Levothyroxine Sodium (Levothyroxine Sodium) 75 Mcg Tablet, 37.5 MCG PO DAILY Discontinued Reason: Duplicate Order Prescribed by: LUCILA ALEJANDRO on 02/17/21 1020 Last Action: Discontinued Past Aoajgon-Dxtkte-Enpysn Hx Patient Social History Marrital Status: Employed/Student: retired Tobacco Use?: No Tobacco type used: Cigarettes Smoking Status: Former Smoker (1-2 PPD for 48 years. Quit 5 years ago before lung transplant) Alcohol Use?: Yes Alcohol type: Beer, Wine Alcohol Frequency: Rarely Past Medical History Surgeries: Abdominal, Bowel Surgery (Hx of Colon resection for Ischemic Bowel 5 years ago), Gallbladder, Pneumonectomy (Lung transplant 5 years ago) COPD High Cholesterol, Hypertension Osteoporosis Review of Systems Constitutional: see HPI, malaise, weakness EENTM: no symptoms reported Respiratory: cough, dyspnea on exertion, short of breath Cardiovascular: no symptoms reported Gastrointestinal: no symptoms reported Genitourinary: frequency Musculoskeletal: no symptoms reported Skin: no symptoms reported Psychiatric/Neurological: No Symptoms Reported All Other Systems Reviewed Negative Unless Noted: Yes Physical Exam General Appearance: No Apparent Distress, WD/WN, Chronically ill, Thin Eyes: Bilateral Eye Normal Inspection, Bilateral Eye PERRL, Bilateral Eye EOMI HEENT: PERRL/EOMI, Normal ENT Inspection, Pharynx Normal Neck: Full Range of Motion, Normal Inspection, Non Tender, Supple, Carotid Bruit Respiratory: Chest Non Tender, No Accessory Muscle Use, No Respiratory Distress, Crackles, Decreased Breath Sounds Cardiovascular: Regular Rate, Rhythm, No Edema, No Gallop, No JVD, No Murmur, Normal Peripheral Pulses Gastrointestinal: Normal Bowel Sounds, No Organomegaly, No Pulsatile Mass, Non Tender, Soft Back: Normal Inspection, No CVA Tenderness, No Vertebral Tenderness Extremity: Normal Capillary Refill, Normal Inspection, Normal Range of Motion, Non Tender, No Calf Tenderness, No Pedal Edema Neurologic/Psychiatric: Alert, Oriented x3, No Motor/Sensory Deficits, Normal Mood/Affect Skin: Normal Color, Warm/Dry Lymphatic: No Adenopathy Assessment/Plan Assessment and Plan Assessment: Acute exacerbation of COPD Bacterial Bronchitis UTI History of lung transplant Immunocompromised Status post Covid vaccines with booster and flu vaccine Osteoporosis Plan: IV steroids O2 ICS Home meds UTI tx IV abx Supervisory-Addendum Brief Verification & Attestation Participated in pt care: history, MDM, physical Personally performed: exam, history, MDM, supervision of care Care discussed with: Medical Student Procedures: n/a Results interpretation: Verified all documentation Verification and Attestation of Medical Student E/M Service A medical student performed and documented this service in my presence. I reviewed and verified all information documented by the medical student and made modifications to such information, when appropriate. I personally performed the physical exam and medical decision making. Lucila Alejandro, Feb 18, 2021,06:07 MERA HILL Feb 17, 2021 08:41 LUCILA ALEJANDRO DO Feb 18, 2021 06:11
[2021-02-17] MEDS: LORATADINE (CLARITIN) 10 MG TAB PO SCH (08:52)
[2021-02-17] MEDS: SENNOSIDES 8.6 MG (SENOKOT) TAB PO SCH ×2 (08:54→22:27)
[2021-02-17] MEDS: DOCUSATE SODIUM 100 MG (COLACE) CAP PO SCH ×2 (08:54→22:27)
[2021-02-17] MEDS: RT-ALBUTEROL HFA 8.5 GM INHALER IH SCH ×3 (10:01→21:51)
[2021-02-17] MEDS: RT--FLUTICASONE/SALMETEROL 113-14 (AIRDUO RespiCLICK) IH SCH ×2 (10:01→21:51)
[2021-02-17] MEDS ORDERED: DULO60CA59 PO (10:18)
[2021-02-17] MEDS ORDERED: DULO30CA49 PO (10:18)
[2021-02-17] MEDS ORDERED: LEVO75TA6 PO ×3 (10:18→11:05)
[2021-02-17] MEDS ORDERED: PANT40TA52 PO (10:18)
[2021-02-17] MEDS ORDERED: AMLO-250 PO (10:18)
--- NOTE | 2021-02-17 10:38 | Physical Therapy Evaluation ---
PT Evaluation-General Medical Diagnosis Admission Date Feb 16, 2021 at 20:45 Medical Diagnosis: COPD exacerbation with hypoxia Onset Date: Feb 16, 2021 Therapy Diagnosis Therapy Diagnosis: debility/weakness Height/Weight Height (Feet): 5 Height (Inches): 0 Weight (Pounds): 100 Weight (Ounces): 0 Precautions Precautions/Isolations: Airborne Isolation, Contact Isolation Referral Physician: Yoan Reason for Referral: Evaluation/Treatment Medical History Pertinent Medical History: COPD, HTN, Hypothroidism Current History ER from urgent care secondary to cough and SOA x 2-3 days Reviewed History: Yes Prior Prior Level of Function SCALE: Activities may be completed with or without assistive devices. 6-Emykomwjbn-regphyy completes the activity by him/herself with no assistance from a helper. 5-Set-up or Clean-up Assistance-helper sets up or cleans up; patient completes activity. [place] assists only prior to or following the activity. 4-Supervision or Touching Assistance-helper provides verbal cues and/or touching/steadying and/or contact guard assistance as patient completes activity. Assistance may be provided throughout the activity or intermittently. 3-Partial/Moderate Assistance-helper does LESS THAN HALF the effort. [place] lifts, holds or supports trunk or limbs, but provides less than half the effort. 2-Substantial/Maximal Assistance-helper does MORE THAN HALF the effort. [place] lifts or holds trunk or limbs and provides more than half the effort. 3-Mpwajmkts-tgduqh does ALL the effort. Patient does none of the effort to complete the activity. Or, the assistance of 2 or more helpers is required for the patient to complete the activity. If activity was not attempted, code reason: 7-Patient Refused. 9-Not Applicable-not attempted and the patient did not perform the activity before the current illness, exacerbation or injury. 10-Not Attempted due to Environmental Limitations-(lack of equipment, weather restraints, etc.). 88-Not Attempted due to Medical Conditions or Safety Concerns. Bed Mobility: 6 Transfers (B,C,W/C): 6 Gait: 6 Stairs: 6 Indoor Mobility (Ambulation): Independent Stairs: Independent Prior Devices Use: None PT Evaluation-Current Subjective Patient agrees to PT. No c/o. Objective Patient Orientation: Normal For Age Attachments: Oxygen, IV ROM/Strength ROM Lower Extremities bilateral LE WFL Strength Lower Extremities 4/5 grossly bilateral LE Integumentary/Posture Bowel Incontinence: No Bladder Incontinence: No Posture WFL Neuromuscular (Tone, Coordination, Reflexes) grossly intact Sensory Vision: Wears Glasses Hearing: Functional Transfers Roll Left to Right (QC): 6 Sit to Lying (QC): 6 Lying to Sitting/Side of Bed(Q: 6 Sit to Stand (QC): 6 Chair/Kbz-fz-Luiej Xfer(QC): 6 Toilet Transfer (QC): 6 Gait Does the Patient Walk?: Yes Mode of Locomotion: Walk Anticipated Mode of Locomotion: Walk Walk 10 feet (QC): 6 Walk 50 ft with 2 Turns(QC): 6 Walk 150 ft (QC): 6 Distance: 150' in room Gait Assistive Device: None Comments/Gait Description safe and functional with no deviation Balance Sitting Static: Normal Sitting Dynamic: Normal Standing Static: Normal Standing Dynamic: Normal Assessment/Needs 70 y.o. female, is currently at independent [facility] with all gross motor skills and does not require skilled PT intervention. Rehab Potential: Fair PT Plan Treatment/Plan Treatment Plan: Discontinue PT, goals met Treatment Duration: Feb 17, 2021 Frequency: 1 time per week Estimated Hrs Per Day: .25 hour per day Patient and/or Family Agrees t: Yes Time/GCodes Time In: 812 Time Out: 829 Total Billed Treatment Time: 17 Total Billed Treatment 1 visit EVMod 17 min FLORIDA MCKENNA PT Feb 17, 2021 10:38
[2021-02-17] MEDS ORDERED: QUET50TA23 PO (11:05)
[2021-02-17] MEDS ORDERED: PRED5TAB PO (11:05)
[2021-02-17] MEDS ORDERED: VIT-31 PO (11:05)
[2021-02-17] MEDS ORDERED: CALC-1026 PO (11:05)
[2021-02-17] MEDS ORDERED: ALEN70TA80 PO (11:05)
[2021-02-17] MEDS ORDERED: ALBU18HF2 INH (11:05)
[2021-02-17] MEDS ORDERED: CYCL25CA24 PO ×2 (11:05)
[2021-02-17] MEDS ORDERED: DAPS25TA2 PO (11:05)
[2021-02-17] MEDS ORDERED: [UNRECOGNIZED DRUG - CODE] PO (11:05)
[2021-02-17] MEDS ORDERED: AZAT50TA16 PO (11:05)
--- NOTE | 2021-02-17 11:35 | Occupational Therapy Eval ---
OT Evaluation-General/PLF Medical Diagnosis Admission Date Feb 16, 2021 at 20:45 Medical Diagnosis: COPD exacerbation with hypoxia Onset Date: Feb 16, 2021 Therapy Diagnosis Therapy Diagnosis: n/a Height/Weight Height (Feet): 5 Height (Inches): 0 Weight (Pounds): 100 Weight (Ounces): 0 Precautions Precautions/Isolations: Airborne Isolation, Contact Isolation Referral Physician: Yoan Referral Reason: Evaluation/Treatment Medical History Pertinent Medical History: COPD, HTN, Hypothroidism Current History Presents to ER with cough, SOA x2-3 days. Currently PUI for COVID. Reviewed History: Yes Social History Home: Single Level Current Living Status: Other Family Entry Into Home: Stairs With Railing Pt reports she is currently in [place] visiting her daughter. She resides in [place] and lives with her sister in a single story home. Indep with all ADLS and IADLS. ADL-Prior Level of Function SCALE: Activities may be completed with or without assistive devices. 2-Xpcjoowlmi-wfwoucw completes the activity by him/herself with no assistance from a helper. 5-Set-up or Clean-up Assistance-helper sets up or cleans up; patient completes activity. [place] assists only prior to or following the activity. 4-Supervision or Touching Assistance-helper provides verbal cues and/or sade estuardo/steadying and/or contact guard assistance as patient completes activity. Assistance may be provided throughout the activity or intermittently. 3-Partial/Moderate Assistance-helper does LESS THAN HALF the effort. [place] lifts, holds or supports trunk or limbs, but provides less than half the effort. 2-Substantial/Maximal Assistance-helper does MORE THAN HALF the effort. [place] lifts or holds trunk or limbs and provides more than half the effort. 6-Wyzvgmlzl-esbedd does ALL the effort. Patient does none of the effort to complete the activity. Or, the assistance of 2 or more helpers is required for the patient to complete the activity. If activity was not attempted, code reason: 7-Patient Refused. 9-Not Applicable-not attempted and the patient did not perform the activity before the current illness, exacerbation or injury. 10-Not Attempted due to Environmental Limitations-(lack of equipment, weather restraints, etc.). 88-Not Attempted due to Medical Conditions or Safety Concerns. Self Care: Independent Functional Cognition: Independent DME/Equipment: Grab Bars, Tub/Shower Drive Self: Yes OT Current Status Subjective Denies pain, reports reduced endurance with activity Appearance returned to supine in bed, all needs within reach. RN notified Mental Status/Objective Patient Orientation: Person, Place, Situation Attachments: IV Current Upper Extremity ROM WNL Upper Extremity Strength 4/5 grossly ADL-Treatment Eating (QC): 6 Oral Hygiene (QC): 6 Lower Body Dressing (QC): 6 On/Off Footwear (QC): 6 Toileting Hygiene (QC): 6 All functional transfers performed independently. SBA for mobility only due to assist with management of IV pole. Pt able to perform all steps of toileting without assist. Mild c/o fatigue, but no unsteadiness observed. Pt currently on 2L o2. Education OT Patient Education: Purpose of tx/functional activities Teaching Recipient: Patient Teaching Methods: Discussion Response to Teaching: Verbalize Understanding OT Transportation Maintenance Specialist Goals Detention Goals 1=Demonstrate adherence to instructed precautions during ADL tasks. 2=Patient will verbalize/demonstrate understanding of assistive devices/modifications for ADL. 3=Patient will improve strength/tolerance for activity to enable patient to perform ADL's. OT Education/Plan Problem List/Assessment Assessment: No Skilled OT Needs ID'd Discharge Recommendations Plan/Recommendations: Discontinue OT Therapy Discharge Recommendati: Home & Family Treatment Plan/Plan of Care Treatment,Training & Education: Yes Patient would benefit from OT for education, treatment and training to promote independence in ADL's, mobility, safety and/or upper extremity function for ADL's. Plan of Care: ADL Retraining Treatment Duration: Feb 17, 2021 Frequency: 1 time per week Estimated Hrs Per Day: .25 hour per day Agreement: Yes Rehab Potential: Fair Time/GCodes Start Time: 11:00 Stop Time: 11:13 Total Time Billed (hr/min): 13 Billed Treatment Time 1 visit Gege Thompson OT Feb 17, 2021 11:35
[2021-02-17] MEDS ORDERED: RT-ALBUTEROL SULF 2.5 MG/3 ML PRE-MIX VIAL INH PRN (12:45)
[2021-02-17 15:21] VITALS: BP 134/65
[2021-02-17] MEDS ORDERED: CALCIUM CARB + VIT D 600 MG (CALCARB + D) TAB PO SCH (18:00)
[2021-02-17] MEDS: diphenhydrAMINE 25 MG TAB (BENADRYL) PO PRN ×2 (18:45→22:26)
[2021-02-17] MEDS ORDERED: PATIENT MAY USE OWN MEDS, ALL MC SCH (20:00)
[2021-02-17] MEDS ORDERED: CYCLOSPORINE PO SCH (21:00)
[2021-02-17] MEDS ORDERED: DULoxetine 30 MG (CYMBALTA) CAP PO SCH (21:00)
[2021-02-17] MEDS: azaTHIOprine (IMURAN) 50 MG TAB PO SCH (22:26)
[2021-02-17] MEDS: AZITHROMYCIN INJECTION 500 MG in NS (IVPB) 250 ML IV SCH (22:27)
[2021-02-17] MEDS: ENOXAPARIN 40 MG/0.4 ML (LOVENOX) SYR SC SCH (22:27)
[2021-02-17] MEDS: cefTRIAXone 1 GM PRE-MIX 50 ML IV SCH (22:27)
[2021-02-17] MEDS: MONTELUKAST 10 MG (SINGULAIR) TAB PO SCH (22:27)
[2021-02-17] MEDS ORDERED: QUEtiapine 25 MG (SEROquel) TAB IMMEDIATE RELEASE PO SCH (23:00)
[2021-02-17 23:45] VITALS: BP 124/82
[2021-02-18] MEDS: IBUPROFEN TABLET 200 MG TAB PO SCH ×5 (00:33→23:39)
[2021-02-18] MEDS: methylPREDNISolone 40 MG/ML (Solu-MEDROL) VIAL IV SCH ×5 (00:40→23:29)
[2021-02-18] MEDS: RT-ALBUTEROL HFA 8.5 GM INHALER IH SCH ×4 (03:08→21:36)
[2021-02-18] MEDS ORDERED: LEVOTHYROXINE 75 MCG (LEVOTHROID) TABLET PO SCH (07:00)
--- NOTE | 2021-02-18 07:08 | Diagnostic Imaging Report ---
INDICATION: COPD exacerbation. Pneumonia follow-up Comparison to the prior study from a 02/16/2021. FINDINGS: Interstitial changes and diaphragmatic flattening compatible with COPD are unchanged. There appears to be a more lucent appearance of the right lung relative to the left. There is no alveolar consolidation. There is no effusion. There is no pneumothorax. Heart size stable. Pulmonary vascularity appears appropriate. IMPRESSION: 1. Background features of COPD with apparent pulmonary hyperinflation. There appears to be a greater degree of hyperinflation of the right lung relative to the left. No new alveolar consolidation or pneumonia is evident. Pulmonary vascularity appears appropriate. Dictated by: Dictated on workstation # [id number]
[2021-02-18 07:10] LABS: BASOPHILS % (AUTO) 0 % (0-10); EOSINOPHILS % (AUTO) 0 % (0-10); HEMATOCRIT 38 % (35-52); HEMOGLOBIN 12.6 g/dL (11.5-16.0); LYMPHOCYTES # (AUTO) 0.5 10^3/uL (1.0-4.0); LYMPHOCYTES % (AUTO) 3 % (12-44); MEAN CORPUSCULAR HEMOGLOBIN 33 pg (25-34); MEAN CORPUSCULAR HGB CONC 33 g/dL (32-36); MEAN CORPUSCULAR VOLUME 100 fL (80-99); MEAN PLATELET VOLUME 12.8 fL (9.0-12.2); MONOCYTES # (AUTO) 0.5 10^3/uL (0.0-1.0); MONOCYTES % (AUTO) 3 % (0-12); NEUTROPHILS # (AUTO) 15.7 10^3/uL (1.8-7.8); NEUTROPHILS % (AUTO) 93 % (42-75); PLATELET COUNT 192 10^3/uL (130-400); WHITE BLOOD COUNT 16.9 10^3/uL (4.3-11.0)
[2021-02-18 07:26] VITALS: BP 118/59
[2021-02-18 07:33] LABS: ALBUMIN 3.6 GM/DL (3.2-4.5); BILIRUBIN,TOTAL 0.3 MG/DL (0.1-1.0); CALCIUM 9.2 MG/DL (8.5-10.1); CREATININE SERUM 1.06 MG/DL (0.60-1.30); POTASSIUM 3.7 MMOL/L (3.6-5.0)
[2021-02-18 07:34] LABS: BAND NEUTROPHILS 1 %; LYMPHOCYTES % (MANUAL) 3 %; MONOCYTES % (MANUAL) 1 %; NEUTROPHILS % (MANUAL) 95 %; RBC MORPH NORMAL
[2021-02-18] MEDS: RT--FLUTICASONE/SALMETEROL 113-14 (AIRDUO RespiCLICK) IH SCH ×2 (08:04→21:36)
--- NOTE | 2021-02-18 08:09 | Progress Note ---
MERA HILL 02/18/21 0809: Subjective Date Seen by a Provider: Feb 18, 2021 Time Seen by a Provider: 08:00 Subjective/Events-last exam 70 y/o female on hospital day 2 for COPD exacerbation. Pt states she has been feeling better, but still is SOA when walking to the bathroom. She states that this is a mild concern. She also has been feeling nauseous, but has not vomited. She has been voiding well, with no pain or burning on urination, but reports some loose stools and urinary frequency. Yesterday, the patient did well on room air, but was placed back on 2L O2 NC due to a desat to 88% while sleeping. Focused Exam Lactate Level 02/16/21 20:56: Lactic Acid Level 0.72 Objective Exam Last Set of Vital Signs Vital Signs Date Time Temp Pulse Resp B/P (MAP) Pulse Ox O2 Delivery O2 Flow Rate FiO2 02/18/21 07:26 36.5 93 18 118/59 (78) 93 Nasal Cannula 2.00 Capillary Refill : Less Than 3 Seconds I&O Intake and Output 02/18/21 00:00 Intake Total 940 ml Balance 940 ml Intake Oral 940 ml # Voids 10 # Bowel Movements 2 General: Alert, Oriented X3, Cooperative, No Acute Distress HEENT: Atraumatic, PERRLA Neck: Supple Lungs: Clear to Auscultation Heart: Regular Rate, No Murmurs, Gallops, Rubs Abdomen: Soft, No Tenderness Extremities: No Edema, Normal Pulses Skin: No Rashes, No Breakdown Neuro: Normal Speech Results Lab Laboratory Tests 02/18/21 06:23: White Blood Count 16.9H, Red Blood Count 3.81, Hemoglobin 12.6, Hematocrit 38, Mean Corpuscular Volume 100H, Mean Corpuscular Hemoglobin 33, Mean Corpuscular Hemoglobin Concent 33, Red Cell Distribution Width 13.4, Platelet Count 192, Mean Platelet Volume 12.8H, Immature Granulocyte % (Auto) 1, Neutrophils (%) (Auto) 93H, Lymphocytes (%) (Auto) 3L, Monocytes (%) (Auto) 3, Eosinophils (%) (Auto) 0, Basophils (%) (Auto) 0, Neutrophils # (Auto) 15.7H, Lymphocytes # (Auto) 0.5L, Monocytes # (Auto) 0.5, Eosinophils # (Auto) 0.0, Basophils # (Auto) 0.0, Immature Granulocyte # (Auto) 0.2H, Neutrophils % (Manual) 95, Lymphocytes % (Manual) 3, Monocytes % (Manual) 1, Band Neutrophils 1, Blood Morp hology Comment NORMAL, Sodium Level 143, Potassium Level 3.7, Chloride Level 107, Carbon Dioxide Level 22, Anion Gap 14, Blood Urea Nitrogen 18, Creatinine 1.06, Estimat Glomerular Filtration Rate 51, BUN/Creatinine Ratio 17, Glucose Level 238H, Calcium Level 9.2, Corrected Calcium 9.5, Total Bilirubin 0.3, Aspartate Amino Transf (AST/SGOT) 14, Alanine Aminotransferase (ALT/SGPT) 11, Alkaline Phosphatase 53, Total Protein 6.0L, Albumin 3.6 Microbiology 02/16/21 Blood Culture - Preliminary, Resulted No growth 02/16/21 Urine Culture - Final, Complete NO GROWTH Assessment/Plan Assessment/Plan Assess & Plan/Chief Complaint This is a 70 y/o female on hospital day 2 for COPD exacerbation. Diagnosis/Problems Diagnosis/Problems (1) COPD exacerbation Onset Date: ~ 02/2021 Status: Acute Assessment & Plan: - likely 2/2 viral URI - currently on 2L O2 NC, but did well on RA yesterday; will continue wean off O2 - CXR 02/18: 1. Background features of COPD with apparent pulmonary hyperinflation. There appears to be a greater degree of hyperinflation of the right lung relative to the left. No new alveolar consolidation or pneumonia is evident. Pulmonary vascularity appears appropriate. - c/w steroids and azithro through 02/21/21 - goal O2 sat 88-92% - c/w RT interventions. (2) UTI (urinary tract infection) Onset Date: ~ 02/2021 Status: Acute Assessment & Plan: -UA 02/16/2021: 2+ leuk est, culture w/ no growth -WBC on 02/18 trending up to 16.9 from 8.2; pt remains afebrile. Likely 2/2 steroids for COPD exacerbation, but will continue to monitor -c/w ceftriaxone; patient with sulfa allergy -patient oral intake is good; continue to push fluids Qualifiers: Qualified Codes: N30.00 - Acute cystitis without hematuria (3) Depression Status: Chronic Assessment & Plan: - resumed home meds - OP psych f/u Qualifiers: Qualified Codes: F32.A - Depression, unspecified (4) Insomnia Status: Chronic Assessment & Plan: - continue home Seroquel - Melatonin 5mg PRN for sleep - OP psych f/u Qualifiers: Qualified Codes: G47.00 - Insomnia, unspecified (5) Hypothyroidism Status: Chronic Assessment & Plan: -resumed home meds Qualifiers: Qualified Codes: E03.9 - Hypothyroidism, unspecified (6) Hypertension Status: Chronic Assessment & Plan: -resumed home meds Qualifiers: Qualified Codes: I10 - Essential (primary) hypertension Clinical Quality Measures Admission Status Admission Dx COPD Exacerbation LUCILA MILTON DO 02/19/21 0524: Subjective Subjective/Events-last exam Pt is feeling a little better Nausea is causing decreased oral nutrition Urinary frequency has improved 88% O2 stat noted when she is off oxygen Chest x-ray shows no changes Will consult cardiology to evaluate for any pulmonary hypertension or any other cause for her lung issues Review of Systems General: Fatigue, Malaise Pulmonary: Dyspnea, Cough Objective Exam General: Alert, Oriented X3, Cooperative, No Acute Distress Lungs: Clear to Auscultation, Normal Air Movement Heart: Regular Rate, Normal S1, Normal S2, No Murmurs Neuro: Normal Gait, Normal Speech, Strength at 5/5 X4 Ext, Normal Tone Psych/Mental Status: Mental Status NL, Mood NL Assessment/Plan Assessment/Plan Assess & Plan/Chief Complaint AECOPD UTI Lung transplant status Plan: Cardiology consult appreciated eCHO Trop Supervisory-Addendum Brief Verification & Attestation Participated in pt care: history, MDM, physical Personally performed: exam, history, MDM, supervision of care Care discussed with: Medical Student Procedures: n/a Results interpretation: Verified all documentation Verification and Attestation of Medical Student E/M Service A medical student performed and documented this service in my presence. I reviewed and verified all information documented by the medical student and made modifications to such information, when appropriate. I personally performed the physical exam and medical decision making. Lucila Milton, Feb 19, 2021,05:22 MERA HILL Feb 18, 2021 08:09 LUCILA MILTON DO Feb 19, 2021 05:24
[2021-02-18] MEDS ORDERED: azaTHIOprine (IMURAN) 50 MG TAB PO SCH (09:00)
[2021-02-18] MEDS ORDERED: PANTOPRAZOLE 40 MG (PROTONIX) TAB PO SCH (09:00)
[2021-02-18] MEDS ORDERED: DAPSONE 100 MG TABLET PO SCH (09:00)
[2021-02-18] MEDS ORDERED: DULoxetine 30 MG (CYMBALTA) CAP PO SCH ×2 (09:00)
[2021-02-18] MEDS ORDERED: NON-FORMULARY MEDICATION 1 EA EA (Duloxetine HCl 60 MG) PO SCH (09:00)
[2021-02-18] MEDS ORDERED: [UNRECOGNIZED DRUG - REMARK] PO SCH (09:00)
[2021-02-18] MEDS: [UNRECOGNIZED DRUG - REMARK] PO SCH ×2 (11:26→21:16)
[2021-02-18] MEDS: PANTOPRAZOLE 40 MG (PROTONIX) TAB PO SCH (11:27)
[2021-02-18] MEDS: DAPSONE 25 MG TABLET PO SCH (11:27)
[2021-02-18] MEDS: DULOXETINE 60 MG PO SCH (11:28)
[2021-02-18] MEDS: CALCIUM CARB PO SCH ×2 (11:29→18:19)
[2021-02-18] MEDS: VIT D PO SCH ×2 (11:29→18:19)
[2021-02-18] MEDS: amLODIPine 5 MG (NORVASC) TAB PO SCH (11:32)
[2021-02-18] MEDS: LORATADINE (CLARITIN) 10 MG TAB PO SCH (11:32)
[2021-02-18] MEDS: azaTHIOprine (IMURAN) 50 MG TAB PO SCH (11:33)
[2021-02-18] MEDS: DOCUSATE SODIUM 100 MG (COLACE) CAP PO SCH ×2 (11:45→21:22)
[2021-02-18] MEDS: LEVOTHYROXINE 75 MCG (LEVOTHROID) TABLET PO SCH (11:45)
[2021-02-18] MEDS: SENNOSIDES 8.6 MG (SENOKOT) TAB PO SCH ×2 (11:45→21:22)
[2021-02-18] MEDS: [UNRECOGNIZED DRUG - REMARK] PO SCH (11:46)
--- NOTE | 2021-02-18 12:20 | Consultation-Cardiology ---
HPI-Cardiology Cardiology Consultation Date of Consultation 02/18/21 Date of Admission Time Seen by Provider: 08:00 Indication: Dyspnea, mildly elevated troponin HPI Patient is a 70 year old female with history of COPD with hx of lung transplant approx 6 years ago. Has been in town since Thanksgiving visiting friends and family. Presented to urgent care on 02/16/21 with complaints of fever/cough and increased shortness of breath x 2-3 days and was sent to ER d/t hypoxemia with SpO2 80%. Denies any recent chest pain or palpitation. Denies any history of CAD. Reports dyspnea is slowly improving. Noted to have mildly elevated troponin and BNP. She is vaccinated x 3 for COVID. Home Medications & Allergies Allergies: Coded Allergies: Sulfa (Sulfonamide Antibiotics) (Verified Allergy, Unknown, 10/05/18) Home Medication List Reviewed: Yes RYM-Pogktm-Ogdwcb Hx Patient Social History Marital Status: Employed/Student: retired Smoking Status: Former Smoker (1-2 PPD for 48 years. Quit 5 years ago before lung transplant) 2nd Hand Smoke Exposure: No Have you traveled recently?: No Alcohol Use?: Yes Immunizations Up To Date Date of Influenza Vaccine: Feb 27, 2020 Past Medical History COPD, HTN, Extobaccoism, Anxiety/depression Review of Systems-General Review of Systems Constitutional: see HPI, malaise, weakness EENTM: no symptoms reported Respiratory: cough, dyspnea on exertion, short of breath Cardiovascular: no symptoms reported Gastrointestinal: no symptoms reported Genitourinary: frequency : No Musculoskeletal: no symptoms reported Skin: no symptoms reported Psychiatric/Neurological: No Symptoms Reported All Other Systems Reviewed Negative Unless Noted: Yes Reviewed Test Results Reviewed Test Results Lab Laboratory Tests 02/18/21 06:23: White Blood Count 16.9H, Red Blood Count 3.81, Hemoglobin 12.6, Hematocrit 38, Mean Corpuscular Volume 100H, Mean Corpuscular Hemoglobin 33, Mean Corpuscular Hemoglobin Concent 33, Red Cell Distribution Width 13.4, Platelet Count 192, Mean Platelet Volume 12.8H, Immature Granulocyte % (Auto) 1, Neutrophils (%) (Auto) 93H, Lymphocytes (%) (Auto) 3L, Monocytes (%) (Auto) 3, Eosinophils (%) (Auto) 0, Basophils (%) (Auto) 0, Neutrophils # (Auto) 15.7H, Lymphocytes # (Auto) 0.5L, Monocytes # (Auto) 0.5, Eosinophils # (Auto) 0.0, Basophils # (Auto) 0.0, Immature Granulocyte # (Auto) 0.2H, Neutrophils % (Manual) 95, Lymphocytes % (Manual) 3, Monocytes % (Manual) 1, Band Neutrophils 1, Blood Morphology Comment NORMAL, D-Dimer 0.35, Sodium Level 143, Potassium Level 3.7, Chloride Level 107, Carbon Dioxide Level 22, Anion Gap 14, Blood Urea Nitrogen 18, Creatinine 1.06, Estimat Glomerular Filtration Rate 51, BUN/Creatinine Ratio 17, Glucose Level 238H, Calcium Level 9.2, Corrected Calcium 9.5, Total Bilirubin 0.3, Aspartate Amino Transf (AST/SGOT) 14, Alanine Aminotransferase (ALT/SGPT) 11, Alkaline Phosphatase 53, Troponin I 0.065H, B-Type Natriuretic Peptide 275.5H, Total Protein 6.0L, Albumin 3.6 Microbiology 02/16/21 Blood Culture - Preliminary, Resulted No growth 02/16/21 Urine Culture - Final, Complete NO GROWTH Physical Exam Physical Exam Vital Signs Vital Signs - First Documented 02/16/21 02/16/21 18:34 21:07 Temp 36.5 Pulse 87 Resp 18 B/P (MAP) 152/72 (98) Pulse Ox 84 O2 Delivery Room Air O2 Flow Rate 2.00 Capillary Refill : Less Than 3 Seconds Height, Weight, BMI Height: 5'0" Weight: 100lbs. 0oz. 45.807391hb; 19.56 BMI Method:Actual General Appearance: No Apparent Distress, WD/WN, Anxious, Chronically ill, Thin Eyes: Bilateral Eye Normal Inspection, Bilateral Eye PERRL, Bilateral Eye EOMI HEENT: PERRL/EOMI, Normal ENT Inspection, Pharynx Normal Neck: Full Range of Motion, Normal Inspection, Non Tender, Supple, Carotid Bruit Respiratory: Chest Non Tender, No Accessory Muscle Use, No Respiratory Distress, Decreased Breath Sounds, Rhonci Cardiovascular: Regular Rate, Rhythm, No Edema, No Gallop, No JVD, No Murmur, Normal Peripheral Pulses, Systolic Murmur (soft) Gastrointestinal: Normal Bowel Sounds, No Organomegaly, No Pulsatile Mass, Non Tender, Soft Rectal: Deferred Back: Normal Inspection, No CVA Tenderness, No Vertebral Tenderness Extremity: Normal Capillary Refill, Normal Inspection, Normal Range of Motion, Non Tender, No Calf Tenderness, No Pedal Edema Neurologic/Psychiatric: Alert, Oriented x3, No Motor/Sensory Deficits, Normal Mood/Affect Skin: Normal Color, Warm/Dry Lymphatic: No Adenopathy A/P-Cardiology Admission Diagnosis AE COPD UTI Elevated troponin HTN Assessment/Plan AE COPD, likely secondary to URI, improving slowly, management per medical services. Hx of left lung transplant approx 6 years ago UTI, on antibiotic, management per medical services. Mildly elevated troponin, likely type 2 NC secondary to hypoxemia. Will obtain EKG, 2D Echo. Plan to repeat troponin in the a.m. HTN- controlled, continue to monitor. ExTobaccoism Anxiety/depression. Thank you for allowing us to participate in the management of Ms. Lowery. This is Lilly Negrete PA-C, as a scribe for Dr. Whitney. Patient was seen and evaluated with Lilly, I examined and interviewed the patient and agree with the current scribed note. Patient has been having increasing dyspnea Laying down in bed comfortably Has bilateral rhonchi on physical examination Has multiple risk factors for coronary artery disease, no active chest pain, mildly elevated troponin probably secondary to hypoxemia Plan to evaluate echocardiogram, monitor troponin trend Monitor blood pressure LILLY MEI Feb 18, 2021 12:20 TOO WHITNEY MD Feb 18, 2021 13:48
[2021-02-18 13:56] VITALS: BP 118/59
[2021-02-18 15:30] VITALS: BP_SYST 144; BP_SYST 180; BP_DIAS 71; BP_DIAS 82
[2021-02-18] MEDS ORDERED: RT-ALBUTEROL SULF 2.5 MG/3 ML PRE-MIX VIAL INH PRN (17:00)
[2021-02-18] MEDS ORDERED: VIT D PO SCH (18:00)
[2021-02-18] MEDS ORDERED: CALCIUM CARB PO SCH (18:00)
[2021-02-18] MEDS: ONDANSETRON 4 MG (ZOFRAN) ORAL DISSOLVE TAB PO PRN (19:56)
[2021-02-18] MEDS: cefTRIAXone 1 GM PRE-MIX 50 ML IV SCH (20:49)
[2021-02-18] MEDS ORDERED: CYCLOSPORINE PO SCH (21:00)
[2021-02-18] MEDS: [UNRECOGNIZED DRUG - REMARK] PO SCH (21:15)
[2021-02-18] MEDS: QUEtiapine 25 MG (SEROquel) TAB IMMEDIATE RELEASE PO SCH (21:17)
[2021-02-18] MEDS: DULoxetine 30 MG (CYMBALTA) CAP PO SCH (21:18)
[2021-02-18] MEDS: MONTELUKAST 10 MG (SINGULAIR) TAB PO SCH (21:20)
[2021-02-18] MEDS: AZITHROMYCIN INJECTION 500 MG in NS (IVPB) 250 ML IV SCH (21:59)
[2021-02-18] MEDS: ENOXAPARIN 40 MG/0.4 ML (LOVENOX) SYR SC SCH (21:59)
[2021-02-19 00:05] VITALS: BP 115/75
[2021-02-19] MEDS: RT-ALBUTEROL HFA 8.5 GM INHALER IH SCH ×4 (02:48→22:11)
[2021-02-19] MEDS: methylPREDNISolone 40 MG/ML (Solu-MEDROL) VIAL IV SCH ×4 (06:12→23:53)
[2021-02-19] MEDS: IBUPROFEN TABLET 200 MG TAB PO SCH ×4 (06:12→23:54)
[2021-02-19] MEDS: LEVOTHYROXINE 75 MCG (LEVOTHROID) TABLET PO SCH ×2 (06:16→09:24)
[2021-02-19 07:02] LABS: BASOPHILS % (AUTO) 0 % (0-10); EOSINOPHILS % (AUTO) 0 % (0-10); HEMATOCRIT 38 % (35-52); HEMOGLOBIN 12.4 g/dL (11.5-16.0); LYMPHOCYTES # (AUTO) 0.3 10^3/uL (1.0-4.0); LYMPHOCYTES % (AUTO) 2 % (12-44); MEAN CORPUSCULAR HEMOGLOBIN 33 pg (25-34); MEAN CORPUSCULAR HGB CONC 33 g/dL (32-36); MEAN CORPUSCULAR VOLUME 101 fL (80-99); MONOCYTES # (AUTO) 0.3 10^3/uL (0.0-1.0); MONOCYTES % (AUTO) 2 % (0-12); NEUTROPHILS % (AUTO) 94 % (42-75); PLATELET COUNT 163 10^3/uL (130-400); WHITE BLOOD COUNT 13.9 10^3/uL (4.3-11.0)
[2021-02-19 07:17] LABS: ALBUMIN 3.4 GM/DL (3.2-4.5); POTASSIUM 3.5 MMOL/L (3.6-5.0)
[2021-02-19 07:18] LABS: CALCIUM 8.8 MG/DL (8.5-10.1)
[2021-02-19 07:19] LABS: TOTAL PROTEIN 5.8 GM/DL (6.4-8.2)
[2021-02-19] MEDS: RT--FLUTICASONE/SALMETEROL 113-14 (AIRDUO RespiCLICK) IH SCH ×2 (07:19→22:11)
[2021-02-19 07:21] LABS: BILIRUBIN,TOTAL 0.4 MG/DL (0.1-1.0)
[2021-02-19 07:23] LABS: CREATININE SERUM 1.07 MG/DL (0.60-1.30)
[2021-02-19 07:52] VITALS: BP 155/87
--- NOTE | 2021-02-19 08:15 | Cardiology Progress Note ---
Subjective Date Seen by Provider: Feb 19, 2021 Time Seen by Provider: 08:13 Subjective/Events-last exam Patient is laying down in bed, complaining of mild nausea. No chest pain. Breathing better Review of Systems General: No Chills, No Night Sweats; Fatigue; No Malaise, No Appetite, No Other HEENT: No Head Aches, No Visual Changes, No Eye Pain, No Ear Pain, No Dysp hasia, No Sinus Congestion, No Post Nasal Drip, No Sore Throat, No Other Pulmonary: No Dyspnea, No Cough, No Pleuritic Chest Pain, No Other Cardiovascular: No: Chest Pain, Palpitations, Orthopnea, Paroxysmal Noc. Dyspnea, Edema, Lt Headedness, Other Gastrointestinal: Nausea Focused Exam Lactate Level 02/16/21 20:56: Lactic Acid Level 0.72 Objective-Cardiology Exam Last Set of Vital Signs Vital Signs 02/18/21 02/18/21 02/19/21 08:05 13:56 07:52 Temp 37.0 Pulse 120 Resp 18 B/P (MAP) 155/87 (109) Pulse Ox 92 O2 Delivery Room Air O2 Flow Rate 2.00 FiO2 28 I&O Intake and Output 02/19/21 00:00 Intake Total 1530 ml Balance 1530 ml Intake Oral 1530 ml # Voids 10 # Bowel Movements 5 General: Alert, Oriented X3, Cooperative, No Acute Distress HEENT: Atraumatic, PERRLA Neck: Supple Lungs: Clear to Auscultation, Normal Air Movement Heart: Regular Rate, Normal S1, Normal S2, No Murmurs Abdomen: Soft, No Tenderness Extremities: No Edema, Normal Pulses Skin: No Rashes, No Breakdown Neuro: Normal Gait, Normal Speech, Strength at 5/5 X4 Ext, Normal Tone Psych/Mental Status: Mental Status NL, Mood NL Results Lab Laboratory Tests 02/19/21 06:47 A/P-Cardiology Admission Diagnosis AE COPD UTI Elevated troponin HTN Assessment/Plan AE COPD, likely secondary to URI, improving slowly, management per medical services. Hx of left lung transplant approx 6 years ago UTI, on antibiotic, management per medical services. Mildly elevated troponin, likely type 2 MT secondary to hypoxemia. Will consider doing a stress test as an outpatient. Diabetes mellitus, poorly controlled, managed by primary care physician HTN- controlled, continue to monitor. ExTobaccoism Anxiety/depression. TOO COOK MD Feb 19, 2021 08:15
[2021-02-19] MEDS: azaTHIOprine (IMURAN) 50 MG TAB PO SCH (09:16)
[2021-02-19] MEDS: LORATADINE (CLARITIN) 10 MG TAB PO SCH (09:16)
[2021-02-19] MEDS: amLODIPine 5 MG (NORVASC) TAB PO SCH (09:16)
[2021-02-19] MEDS: VIT D PO SCH ×2 (09:17→18:46)
[2021-02-19] MEDS: CALCIUM CARB PO SCH ×2 (09:17→18:46)
[2021-02-19] MEDS: PANTOPRAZOLE 40 MG (PROTONIX) TAB PO SCH (09:17)
[2021-02-19] MEDS: DULOXETINE 60 MG PO SCH (09:18)
[2021-02-19] MEDS: [UNRECOGNIZED DRUG - REMARK] PO SCH (09:20)
[2021-02-19] MEDS: [UNRECOGNIZED DRUG - REMARK] PO SCH ×2 (09:20→21:56)
[2021-02-19] MEDS: SENNOSIDES 8.6 MG (SENOKOT) TAB PO SCH (09:21)
[2021-02-19] MEDS: DOCUSATE SODIUM 100 MG (COLACE) CAP PO SCH (09:21)
--- NOTE | 2021-02-19 11:40 | Consultation - Surgery ---
MERA MARI MED STUDENT 02/19/21 1140: History of Present Illness History of Present Illness Patient Consulted On(cathie/time) 02/19/21 11:40 Date Seen by Provider: Feb 19, 2021 Time Seen by Provider: 11:40 Reason for Visit: Dyspnea, mildly elevated troponin History of Present Illness Mrs. Lowery is a 70 yo female w/ pmh of lung transplant, hemicolectomy, ostomy and reversal, appendectomy, and total hysterectomy that was admitted to [facility] due to some hypoxia, SOV, elevated trop, and a UTI. She is being managed medically and continuing to improve. However, she states that she is worried about her colon. She has been having a lot of loose stools, but wouldn't describe them as diarrhea. She is also having a lot of nausea. She states that she has felt this way before and she ended up having a hemicolectomy. This was after her lung transplant. She states this started about 2 weeks ago when she noticed that her stool had become loose, the nausea started about the same time. Nausea is worse at night and in the morning. Thinks today the nausea and loose stools might be a bit better but is still pretty bad. It is worse when she thinks about food. She has some abdominal pain as well. States it is laterally on both sides. Feels like a sharp pain but is not consistent. She has gotten some medication for nausea which she says helps a bit. Thinking about food is the thing that makes it the worst. ROS positive for chills, SOB, abd pain, loose stools and nausea. Negative for fever, Dysuria, vomiting, and swelling or pain in her legs or feet. She states the last time she felt like this was when she got part of her colon removed. She has had a chest CT during this hospital visit. She does not think she has had any imagine of her abdomen in quite some time. Lung transplant was 5-6 years ago and she had the hemicolectomy around that time. She had her ostomy for about a year before it was reversed, about 4 years ago. Allergies and Home Medications Allergies Coded Allergies: Sulfa (Sulfonamide Antibiotics) (Verified Allergy, Unknown, 10/05/18) Patient Home Medication List Albuterol Sulfate (Ventolin Hfa) 18 Gm Hfa.aer.ad, 2 PUFF INH Q6H PRN for SHORTNESS OF BREATH, (Reported) Entered as Reported by: LIA GONZALEZ on 02/17/211104 Last Action: Continued Alendronate Sodium (Alendronate Sodium) 70 Mg Tablet, 70 MG PO MON, (Reported) Entered as Reported by: LIA GONZALEZ on 02/17/211104 Last Action: Held Amlodipine Besylate (Amlodipine Besylate) 5 Mg Tablet, 5 MG PO DAILY, (Reported) Entered as Reported by: JOSE ALEJANDRO on 02/17/211017 Last Action: Reviewed Azathioprine (Imuran) 50 Mg Tablet, 75 MG PO DAILY, (Reported) Entered as Reported by: LIA GONZALEZ on 02/17/211104 Last Action: Continued Calcium Carbonate/Vitamin D3 (Calcium 600 + Vit D 400 Tablet) 1 Each Tablet, 1 EACH PO BID, (Reported) Entered as Reported by: LIA GONZALEZ on 02/17/211104 Last Action: Continued Cyclosporine, Modified (Cyclosporine Modified) 25 Mg Capsule, 25 MG PO DAILY, (Reported) Entered as Reported by: LIA GONZALEZ on 02/17/211104 Last Action: Converted Cyclosporine, Modified (Cyclosporine Modified) 25 Mg Capsule, 50 MG PO HS, (Reported) Entered as Reported by: LIA GONZALEZ on 02/17/211104 Last Action: Converted Cyclosporine, Modified (Cyclosporine Modified) 100 Mg Capsule, 100 MG PO BID, (Reported) Entered as Reported by: LIA GONZALEZ on 02/17/211104 Last Action: Converted Dapsone (Dapsone) 25 Mg Tablet, 25 MG PO MO,WE,FR, (Reported) Entered as Reported by: LIA GONZALEZ on 02/17/211104 Last Action: Converted Duloxetine HCl (Duloxetine HCl) 30 Mg Capsule.dr, 30 MG PO HS, (Reported) Entered as Reported by: JOSE ALEJANDRO on 02/17/211017 Last Action: Reviewed Duloxetine HCl (Duloxetine HCl) 60 Mg Capsule.dr, 60 MG PO DAILY, (Reported) Entered as Reported by: JOSE ALEJANDRO on 02/17/211017 Last Action: Reviewed Levothyroxine Sodium (Levothyroxine Sodium) 75 Mcg Tablet, 37.5 MCG PO DAILY, (Reported) Entered as Reported by: LIA GONZALEZ on 02/17/211104 Last Action: Continued Pantoprazole Sodium (Pantoprazole Sodium) 40 Mg Tablet.dr, 40 MG PO DAILY, (Reported) Entered as Reported by: JOSE ALEJANDRO on 02/17/21 1018 Last Action: Reviewed Prednisone (Prednisone) 5 Mg Tablet, 5 MG PO DAILY, (Reported) Entered as Reported by: LIA GONZALEZ on 02/17/211104 Last Action: Held Quetiapine Fumarate (Quetiapine Fumarate) 50 Mg Tablet, 25 MG PO HS, (Reported) Entered as Reported by: LIA GONZALEZ on 02/17/211104 Last Action: Converted Vit A/Vit C/Vit E/Zinc/Copper (Eye Multivitamin Tablet) 1 Each Tablet, 1 EACH PO DAILY, (Reported) Entered as Reported by: LIA GONZALEZ on 02/17/211104 Last Action: Held Discontinued Medications Hydrocodone Bit/Acetaminophen (Lortab 5 Mg Tablet) 1 Tab Tab, 1 EACH PO Q4-6HR PRN for PAIN-MODERATE Discontinued Reason: Duplicate Order Prescribed by: ALMAS MAGANA on 10/05/182222 Last Action: Discontinued Levothyroxine Sodium (Levothyroxine Sodium) 75 Mcg Tablet, 37.5 MCG PO DAILY Discontinued Reason: Duplicate Order Prescribed by: JOSE ALEJANDRO on 02/17/21 102 Last Action: Discontinued Past Oxdryjg-Gjcnkw-Tdbkoy Hx Patient Social History Smoking Status: Former Smoker (1-2 PPD for 48 years. Quit 5 years ago before lung transplant) 2nd Hand Smoke Exposure: No Alcohol Use?: Yes (socially) Have you traveled recently?: No Immunizations Up To Date Date of Influenza Vaccine: Feb 27, 2020 Surgeries History of Surgeries: Yes (LUNG TRANSPLANT, COLON RESECTION) Surgeries: Abdominal (Complete hysterectomy, appendectomy), Bowel Surgery (Hx of Colon resection for Ischemic Bowel 5 years ago), Gallbladder, Pneumonectomy (Lung transplant 5 years ago), Thyroidectomy Respiratory History of Respiratory Disorde: Yes (LUNG TRANSPLANT FOR COPD) Respiratory Disorders: COPD Cardiovascular History of Cardiac Disorders: Yes Cardiac Disorders: High Cholesterol, Hypertension Neurological History of Neurological Disord: No Reproductive System [employer] History: Menopausal Genitourinary History of Genitourinary Disor: Yes Genitourinary Disorders: Bladder Infection Gastrointestinal History of Gastrointestinal Di: Yes (COLON RESECTION FOR ISCHEMIC BOWEL) Gastrointestinal Disorders: Gastroesophageal Reflux Musculoskeletal History of Musculoskeletal Dis: No Musculoskeletal Disorders: Osteoporosis Endocrine History of Endocrine Disorders: Yes Endocrine Disorders: Hypothyroidsim HEENT History of HEENT Disorders: No Cancer History of Cancer: No Psychosocial History of Psychiatric Problem: Yes Behavioral Health Disorders: Depression Integumentary History of Skin or Integumenta: Yes (SHINGLES RIGHT ARM 09/2020) Blood Transfusions History of Blood Disorders: No Family Medical History Significant Family History: Cancer (Lung cancer in mother, Pancreatic cancer in father) Review of Systems-General Constitutional: chills; No diaphoresis, No dizziness, No fever EENTM: No hearing loss, No vision loss, No throat pain Respiratory: dyspnea on exertion; No hemoptysis, No phlegm; short of breath; No wheezing Cardiovascular: No chest pain, No edema, No palpitations Gastrointestinal: abdominal pain; No constipation; diarrhea (loose stool); No dysphagia, No hematemesis, No melena; nausea; No vomiting Genitourinary: No dysuria, No frequency, No hematuria Musculoskeletal: other (Denies leg/foot pain or swelling) Skin: No lesions, No rash Psychiatric/Neurological: Denies Headache Physical Exam-General Problems Physical Exam Vital Signs Vital Signs - First Documented 02/16/21 02/16/21 02/18/21 18:34 21:07 13:56 Temp 36.5 Pulse 87 Resp 18 B/P (MAP) 152/72 (98) Pulse Ox 84 O2 Delivery Room Air O2 Flow Rate 2.00 FiO2 28 Capillary Refill : Less Than 3 Seconds General Appearance: WD/WN, no apparent distress HEENT: pharynx normal (moist) Respiratory: lungs clear, normal breath sounds, no respiratory distress, no acc essory muscle use Cardiovascular: regular rate, rhythm, no edema, no murmur Peripheral Pulses: 2+ Dorsalis Pedis (R), 2+ Left Dors-Pedis (L), 2+ Radial Pulses (R), 2+ Radial Pulses (L) Gastrointestinal: normal bowel sounds, soft, tenderness (Diffuse, more on sides. Also tender in RUQ. Hesitancy with murphys), other (some healed surgical scars on abdomen but not bruising or other lesions noted. No distension) Rectal: deferred Extremities: non-tender, normal inspection, no pedal edema, no calf tenderness Neurologic/Psychiatric: alert, normal mood/affect, oriented x 3 Skin: normal color, warm/dry Data Review Labs Laboratory Tests 02/19/21 06:47: White Blood Count 13.9H, Red Blood Count 3.75L, Hemoglobin 12.4, Hematocrit 38, Mean Corpuscular Volume 101H, Mean Corpuscular Hemoglobin 33, Mean Corpuscular Hemoglobin Concent 33, Red Cell Distribution Width 13.5, Platelet Count 163, Mean Platelet Volume 12.0, Immature Granulocyte % (Auto) 2, Neutrophils (%) (Auto) 94H, Lymphocytes (%) (Auto) 2L, Monocytes (%) (Auto) 2, Eosinophils (%) (Auto) 0, Basophils (%) (Auto) 0, Neutrophils # (Auto) 13.0H, Lymphocytes # (Auto) 0.3L, Monocytes # (Auto) 0.3, Eosinophils # (Auto) 0.0, Basophils # (Auto) 0.0, Immature Granulocyte # (Auto) 0.2H, Sodium Level 143, Potassium Level 3.5L, Chloride Level 104, Carbon Dioxide Level 26, Anion Gap 13, Blood Urea Nitrogen 18, Creatinine 1.07, Estimat Glomerular Filtration Rate 50, BUN/Cr eatinine Ratio 17, Glucose Level 223H, Calcium Level 8.8, Corrected Calcium 9.3, Total Bilirubin 0.4, Aspartate Amino Transf (AST/SGOT) 12, Alanine Aminotransferase (ALT/SGPT) 8, Alkaline Phosphatase 54, Total Protein 5.8L, Albumin 3.4 Microbiology 02/16/21 Blood Culture - Preliminary, Resulted No growth 02/16/21 Urine Culture - Final, Complete NO GROWTH Assessment/Plan Assessment/Plan Assessment/Plan Loose stools Nausea History of multiple abdominal surgeries including hemicolectomy, and ostomy w/ reversal UTI COPD Exacerbation Pt states she had symptoms similar to the nausea and loose bowel movements that shes having now in the past and it resulted in her needing hemicolectomy. She has not had problems since her ostomy reversal and she does not remember having any imaging of any sort. She is still having bowel movements, so obstruction not likely. Would be good to get a CT of abdomen looking for any signs of colitis, ischemia, obstruction, or any other problem that could require surgical intervention. Due to her history of surgeries in her abdomen there is possibility for adhesions. In the meantime she is already getting zofran for nausea which she says is helping. Due to frequent loose stools could hold some of her stool softeners. She is on opiod pain medications so will want to be sure she doesn't become constipated. UTI is being teated with ceftriaxone and is improving well. COPD improving she is on RA. VIRGINIA JENKINS DO 02/19/21 1443: History of Present Illness History of Present Illness Time Seen by Provider: 11:36 History of Present Illness Surgery asked to consult regarding diarrhea, weakness and abdominal pain. HPI per ED: PT ARRIVES VIA POV--SENT HERE FROM [facility], PT IS HERE VISITING FROM [place] SINCE , PT HAS HISTORY OF COPD AND S/P LUNG TRANSPLANT 5 YEARS AGO--LAST SAW TRANSPLANT DR 6 MONTHS AGO PT DOES NOT HAVE HOME O2, HAS NOT USED INHALER OR NEBULIZER FOR YEARS, C/O COUGH AND SHORTNESS OF BREATH X 2-3 DAYS, HAS HAD UTI SYMPTOMS FOR ABOUT 3 WEEKS, HAS HAD NAUSEA, NO VOMITING, STOOLS HAVE BEEN LOOSE NO ABDOMINAL PAIN, HAS HAD MILD HEADACHE, NO CHEST PAIN, NO SWELLING IN LEGS/FEET OR PAIN IN CALVES, NO BODY ACHES, NO LOSS OF TASTE OR SMELL, HAD SUBJECTIVE FEVER AND SWEATS/CHILLS, WENT TO [facility] TODAY FOR THIS PROBLEM, O2 SAT WAS 80% ON ROOM AIR, UP TO MID 90'S ON O2 AT 2L/NC--THEN SENT [facility] AND FLU TESTS WERE NEGATIVE THERE, PT WAS DX WITH UTI THERE BUT NO MEDICATIONS WERE GIVEN, HAS NOT TAKEN ANYTHING FOR SYMPTOMS, SYMPTOMS NO DIFFERENT TODAY When I spoke to pt she states she is mainly worried because the abdominal symptoms she is having now feel like the problems she was having when "my intestine and they cut it out". She has had nausea for 4 weeks and diarrhea for at least 3 weeks. She is very tired and weak. Abdominal pain is described as 4-5 out of 10, kind of a dull ache with sharp shooting pains. Allergies and Home Medications Allergies Coded Allergies: Sulfa (Sulfonamide Antibiotics) (Verified Allergy, Unknown, 10/05/18) Patient Home Medication List Home Medication List Reviewed: Yes Albuterol Sulfate (Ventolin Hfa) 18 Gm Hfa.aer.ad, 2 PUFF INH Q6H PRN for SHORTNESS OF BREATH, (Reported) Entered as Reported by: LIA GONZALEZ on 02/17/211104 Last Action: Continued Alendronate Sodium (Alendronate Sodium) 70 Mg Tablet, 70 MG PO MON, (Reported) Entered as Reported by: LIA GONZALEZ on 02/17/211104 Last Action: Held Amlodipine Besylate (Amlodipine Besylate) 5 Mg Tablet, 5 MG PO DAILY, (Reported) Entered as Reported by: JOSE ALEJANDRO on 02/17/211017 Last Action: Reviewed Azathioprine (Imuran) 50 Mg Tablet, 75 MG PO DAILY, (Reported) Entered as Reported by: LIA GONZALEZ on 02/17/211104 Last Action: Continued Calcium Carbonate/Vitamin D3 (Calcium 600 + Vit D 400 Tablet) 1 Each Tablet, 1 EACH PO BID, (Reported) Entered as Reported by: LIA GONZALEZ on 02/17/211104 Last Action: Continued Cyclosporine, Modified (Cyclosporine Modified) 25 Mg Capsule, 25 MG PO DAILY, (Reported) Entered as Reported by: LIA GONZALEZ on 02/17/211104 Last Action: Converted Cyclosporine, Modified (Cyclosporine Modified) 25 Mg Capsule, 50 MG PO HS, (Rep orted) Entered as Reported by: LIA GONZALEZ on 02/17/211104 Last Action: Converted Cyclosporine, Modified (Cyclosporine Modified) 100 Mg Capsule, 100 MG PO BID, (Reported) Entered as Reported by: LIA GONZALEZ on 02/17/211104 Last Action: Converted Dapsone (Dapsone) 25 Mg Tablet, 25 MG PO MO,WE,FR, (Reported) Entered as Reported by: LIA GONZALEZ on 02/17/211104 Last Action: Converted Duloxetine HCl (Duloxetine HCl) 30 Mg Capsule.dr, 30 MG PO HS, (Reported) Entered as Reported by: JOSE ALEJANDRO on 02/17/211017 Last Action: Reviewed Duloxetine HCl (Duloxetine HCl) 60 Mg Capsule.dr, 60 MG PO DAILY, (Reported) Entered as Reported by: JOSE ALEJANDRO on 02/17/211017 Last Action: Reviewed Levothyroxine Sodium (Levothyroxine Sodium) 75 Mcg Tablet, 37.5 MCG PO DAILY, (Reported) Entered as Reported by: LIA GONZALEZ on 02/17/211104 Last Action: Continued Pantoprazole Sodium (Pantoprazole Sodium) 40 Mg Tablet.dr, 40 MG PO DAILY, (Reported) Entered as Reported by: OJSE ALEJANDRO on 02/17/21 1018 Last Action: Reviewed Prednisone (Prednisone) 5 Mg Tablet, 5 MG PO DAILY, (Reported) Entered as Reported by: LIA GONZALEZ on 02/17/211104 Last Action: Held Quetiapine Fumarate (Quetiapine Fumarate) 50 Mg Tablet, 25 MG PO HS, (Reported) Entered as Reported by: LIA GONZALEZ on 02/17/211104 Last Action: Converted Vit A/Vit C/Vit E/Zinc/Copper (Eye Multivitamin Tablet) 1 Each Tablet, 1 EACH PO DAILY, (Reported) Entered as Reported by: LIA GONZALEZ on 02/17/211104 Last Action: Held Discontinued Medications Hydrocodone Bit/Acetaminophen (Lortab 5 Mg Tablet) 1 Tab Tab, 1 EACH PO Q4-6HR PRN for PAIN-MODERATE Discontinued Reason: Duplicate Order Prescribed by: ALMAS MAGANA on 10/05/183 Last Action: Discontinued Levothyroxine Sodium (Levothyroxine Sodium) 75 Mcg Tablet, 37.5 MCG PO DAILY Discontinued Reason: Duplicate Order Prescribed by: JOSE ALEJANDRO on 02/17/21 1020 Last Action: Discontinued Past Sjdwbsh-Xpokwq-Krehat Hx Patient Social History Smoking Status: Former Smoker Alcohol Use?: Yes (socially) Surgeries History of Surgeries: Yes Surgeries: Abdominal (Complete hysterectomy, appendectomy), Bowel Surgery (Hx of Colon resection for Ischemic Bowel 5 years ago), Gallbladder, Pneumonectomy (Lung transplant 5 years ago), Thyroidectomy Respiratory History of Respiratory Disorde: Yes Respiratory Disorders: COPD, Pulmonary Fibrosis Cardiovascular History of Cardiac Disorders: Yes Cardiac Disorders: Hypertension Neurological History of Neurological Disord: No Genitourinary History of Genitourinary Disor: Yes Genitourinary Disorders: Bladder Infection Gastrointestinal History of Gastrointestinal Di: Yes Gastrointestinal Disorders: Gastroesophageal Reflux Musculoskeletal History of Musculoskeletal Dis: Yes Musculoskeletal Disorders: Osteoporosis, Arthritis Endocrine History of Endocrine Disorders: Yes Endocrine Disorders: Hypothyroidsim HEENT History of HEENT Disorders: Yes Loss of Vision: Bilateral Hearing Impairment: Denies Cancer History of Cancer: No Psychosocial History of Psychiatric Problem: Yes Behavioral Health Disorders: Depression Integumentary History of Skin or Integumenta: Yes (shingles) Review of Systems-General Constitutional: chills; No diaphoresis, No dizziness, No fever; malaise, weakness EENTM: No hearing loss, No vision loss, No throat pain Respiratory: dyspnea on exertion; No hemoptysis, No phlegm; short of breath; No wheezing Cardiovascular: No chest pain, No edema, No palpitations Gastrointestinal: abdominal pain; No constipation; diarrhea (loose stool); No dysphagia, No hematemesis, No melena; nausea; No vomiting Genitourinary: No dysuria, No frequency, No hematuria Musculoskeletal: back pain, joint pain Skin: No lesions, No rash Psychiatric/Neurological: Depressed; Denies Headache, Denies Seizure Physical Exam-General Problems Physical Exam General Appearance: no apparent distress, other (chronically ill) Eyes: Bilateral Eye PERRL, Bilateral Eye EOMI HEENT: pharynx normal (moist); No scleral icterus (R), No scleral icterus (L) Neck: non-tender, supple Respiratory: lungs clear, normal breath sounds, no respiratory distress, no accessory muscle use Cardiovascular: regular rate, rhythm, no murmur Gastrointestinal: soft, tenderness (Diffuse, more on sides. Also tender in RUQ. Hesitancy with murphys), other (some healed surgical scars on abdomen but not bruising or other lesions noted. No distension) Rectal: deferred Extremities: non-tender, normal inspection, no pedal edema, no calf tenderness Neurologic/Psychiatric: alert, normal mood/affect, oriented x 3 Skin: normal color, warm/dry Lymphatic: no adenopathy (neck, axilla or groin) Assessment/Plan Assessment/Plan Assessment/Plan Loose stools Nausea History of multiple abdominal surgeries including hemicolectomy, and ostomy w/ reversal. Hx of lung transplant UTI COPD Exacerbation Pt states she had symptoms similar to the nausea and loose bowel movements that shes having now in the past and it resulted in her needing hemicolectomy. She has not had problems since her ostomy reversal and she does not remember having any imaging of any sort. She is still having bowel movements, so obstruction not likely. Would be good to get a CT of abdomen looking for any signs of colitis, ischemia, obstruction, or any other problem that could require surgical intervention. Due to her history of surgeries in her abdomen there is possibility for adhesions. In the meantime she is already getting zofran for nausea which she says is helping. Due to frequent loose stools could hold some of her stool softeners. She is on opiod pain medications so will want to be sure she doesn't become constipated. UTI is being teated with ceftriaxone and is improving well. COPD improving she is on RA. I reviewed her most recent CT and went back to look at CT from 2019; unfortunately on the Chest CT done cannot see enough of the abdomen. Ordered stool studies because of chronic diarrhea. Will monitor labs and may need CT abd/pelvis. Supervisory-Addendum Brief Verification & Attestation Participated in pt care: history, MDM, physical Personally performed: exam, history, MDM, supervision of care Care discussed with: Medical Student Procedures: n/a Verification and Attestation of Medical Student E/M Service A medical student performed and documented this service. I then reviewed and verified all information documented by the medical student and made keyana fications to such information, when appropriate. I personally performed a physical exam, medical decision making and then discussed any differences between the notes and made revisions as necessary to create one note. Virginia Jenkins , 02/19/21 , 14:52 MERA MARI MED STUDENT Feb 19, 2021 11:40 VIRGINIA JENKINS DO Feb 19, 2021 14:43
--- NOTE | 2021-02-19 13:29 | Progress Note ---
MERA HILL 02/19/21 1329: Subjective Date Seen by a Provider: Feb 19, 2021 Time Seen by a Provider: 08:30 Subjective/Events-last exam This is a 70 y/o female on hospital day 3 for acute exacerbation of COPD. Pt states she feels better today, although she still c/o of nausea, loose stools, urinary frequency and some dyspnea. Her nausea has become of particular concern to her and she wonders if it is related to her previous issues with bowel ischemia. Otherwise, she states she slept well, and reports good oral fluid intake yesterday. She feels her nausea has diminished her appetite. Other than the looseness, she reports appropriate bowel movements. Pt is currently on RA and satting well at 92% Review of Systems General: No Chills, No Appetite (diminished due to nausea) HEENT: No Head Aches, No Visual Changes, No Sore Throat Pulmonary: Dyspnea, Cough Cardiovascular: No: Chest Pain, Edema Gastrointestinal: Nausea; No: Vomiting, Abdominal Pain, Diarrhea, Constipation Genitourinary: No Dysuria; Frequency Neurological: No: Weakness, Numbness, Confusion Focused Exam Lactate Level 02/16/21 20:56: Lactic Acid Level 0.72 Objective Exam Last Set of Vital Signs Vital Signs Date Time Temp Pulse Resp B/P (MAP) Pulse Ox O2 Delivery O2 Flow Rate FiO2 02/19/21 08:00 Room Air 02/19/21 07:52 37.0 120 18 155/87 (109) 92 02/18/21 13:56 28 02/18/21 08:09 Capillary Refill : Less Than 3 Seconds I&O Intake and Output 02/19/21 00:00 Intake Total 1530 ml Balance 1530 ml Intake Oral 1530 ml # Voids 10 # Bowel Movements 5 General: Alert, Oriented X3, Cooperative, No Acute Distress HEENT: Atraumatic, PERRLA, EOMI, Mucous Memb Moist/[place] Neck: Supple, No JVD Lungs: Clear to Auscultation, Normal Air Movement Heart: Regular Rate, No Murmurs, Gallops, Rubs Abdomen: Soft, No Tenderness Extremities: No Edema Skin: No Rashes Neuro: Normal Speech Results Lab Laboratory Tests 02/19/21 06:47: White Blood Count 13.9H, Red Blood Count 3.75L, Hemoglobin 12.4, Hematocrit 38, Mean Corpuscular Volume 101H, Mean Corpuscular Hemoglobin 33, Mean Corpuscular Hemoglobin Concent 33, Red Cell Distribution Width 13.5, Platelet Count 163, Mean Platelet Volume 12.0, Immature Granulocyte % (Auto) 2, Neutrophils (%) (Auto) 94H, Lymphocytes (%) (Auto) 2L, Monocytes (%) (Auto) 2, Eosinophils (%) (Auto) 0, Basophils (%) (Auto) 0, Neutrophils # (Auto) 13.0H, Lymphocytes # (Auto) 0.3L, Monocytes # (Auto) 0.3, Eosinophils # (Auto) 0.0, Basophils # (Auto) 0.0, Immature Granulocyte # (Auto) 0.2H, Sodium Level 143, Potassium Level 3.5L, Chloride Level 104, Carbon Dioxide Level 26, Anion Gap 13, Blood Urea Nitrogen 18, Creatinine 1.07, Estimat Glomerular Filtration Rate 50, BUN/Creatinine Ratio 17, Glucose Level 223H, Calcium Level 8.8, Corrected Calcium 9.3, Total Bilirubin 0.4, Aspartate Amino Transf (AST/SGOT) 12, Alanine Aminotransferase (ALT/SGPT) 8, Alkaline Phosphatase 54, Total Protein 5.8L, Albumin 3.4 Microbiology 02/16/21 Blood Culture - Preliminary, Resulted No growth 02/16/21 Urine Culture - Final, Complete NO GROWTH Assessment/Plan Assessment/Plan Assess & Plan/Chief Complaint This is a 70 y/o female on hospital day 3 for COPD exacerbation. Diagnosis/Problems Diagnosis/Problems (1) COPD exacerbation Onset Date: ~ 02/2021 Status: Acute Assessment & Plan: - likely 2/2 viral URI - currently on RA and satting well - CXR 02/18: 1. Background features of COPD with apparent pulmonary hyperinflation. There appears to be a greater degree of hyperinflation of the right lung relative to the left. No new alveolar consolidation or pneumonia is evident. Pulmonary vascularity appears appropriate. - c/w steroids and azithro through 02/21/21 - goal O2 sat 88-92% - c/w RT interventions. (2) Nausea Onset Date: ~ 02/2021 Status: Acute Assessment & Plan: - Pt states that similar nausea was present in her bout with bowel ischemia. Currently reports no abdominal pain, bloating, bloody stools, or discomfort with bowel movements - Consider gastroparesis 2/2 uncontrolled diabetes - Will consult surgery for evaluation; appreciate recs (3) UTI (urinary tract infection) Onset Date: ~ 02/2021 Status: Acute Assessment & Plan: -Pt still reports frequency, but feels that this is improving -UA 02/16/2021: 2+ leuk est, culture w/ no growth -WBC on 02/19 trending down to 13.9 from 16.9; pt remains afebrile. Likely 2/2 steroids for COPD exacerbation, but will continue to monitor -c/w ceftriaxone; patient with sulfa allergy -patient oral intake is good; continue to push fluids Qualifiers: Qualified Codes: N30.00 - Acute cystitis without hematuria (4) Depression Status: Chronic Assessment & Plan: - resumed home meds - OP psych f/u Qualifiers: Qualified Codes: F32.A - Depression, unspecified (5) Insomnia Status: Chronic Assessment & Plan: - continue home Seroquel - Melatonin 5mg PRN for sleep - OP psych f/u Qualifiers: Qualified Codes: G47.00 - Insomnia, unspecified (6) Hypothyroidism Status: Chronic Assessment & Plan: -resumed home meds Qualifiers: Qualified Codes: E03.9 - Hypothyroidism, unspecified (7) Hypertension Status: Chronic Assessment & Plan: -resumed home meds Qualifiers: Qualified Codes: I10 - Essential (primary) hypertension Clinical Quality Measures Admission Status Admission Dx COPD Exacerbation ALEJANDROGUZMAN COSBYZeeshan IRENE 02/20/21 0550: Subjective Subjective/Events-last exam Pt doing about the same HgA1C is pending Dr. Beal consulted due to nausea and her recollection of these symptoms with her ischemic bowel White Count 13.9 Glucose is 223 Lungs appearing to be improved Review of Systems General: Fatigue Pulmonary: Dyspnea Objective Exam General: Alert, Oriented X3, Cooperative, No Acute Distress Lungs: Clear to Auscultation, Normal Air Movement Psych/Mental Status: Mental Status NL Assessment/Plan Assessment/Plan Assess & Plan/Chief Complaint Complex issues Dr Beal consult Appreciate Dr Whitney Supervisory-Addendum Brief Verification & Attestation Participated in pt care: history, MDM, physical Personally performed: exam, history, MDM, supervision of care Care discussed with: Medical Student Procedures: n/a Results interpretation: Verified all documentation Verification and Attestation of Medical Student E/M Service A medical student performed and documented this service in my presence. I reviewed and verified all information documented by the medical student and made modifications to such information, when appropriate. I personally performed the physical exam and medical decision making. Lucila Alejandro, Feb 20, 2021,05:48 MERA HILL Feb 19, 2021 13:29 LUCILA ALEJANDRO DO Feb 20, 2021 05:50
[2021-02-19 16:09] VITALS: BP 139/76
[2021-02-19] MEDS: cefTRIAXone 1 GM PRE-MIX 50 ML IV SCH (21:54)
[2021-02-19] MEDS: [UNRECOGNIZED DRUG - REMARK] PO SCH (21:55)
[2021-02-19] MEDS: MONTELUKAST 10 MG (SINGULAIR) TAB PO SCH (21:55)
[2021-02-19] MEDS: AZITHROMYCIN 250 MG TAB (ZITHROMAX) PO SCH (21:55)
[2021-02-19] MEDS: ENOXAPARIN 40 MG/0.4 ML (LOVENOX) SYR SC SCH (21:55)
[2021-02-19] MEDS: DULoxetine 30 MG (CYMBALTA) CAP PO SCH (21:57)
[2021-02-19] MEDS: QUEtiapine 25 MG (SEROquel) TAB IMMEDIATE RELEASE PO SCH (21:58)
[2021-02-19] MEDS: ONDANSETRON 4 MG (ZOFRAN) ORAL DISSOLVE TAB PO PRN (23:53)
[2021-02-19 23:55] VITALS: BP 146/83
[2021-02-20] MEDS: RT-ALBUTEROL HFA 8.5 GM INHALER IH SCH ×4 (03:18→21:36)
[2021-02-20] MEDS: methylPREDNISolone 40 MG/ML (Solu-MEDROL) VIAL IV SCH ×3 (06:45→17:33)
[2021-02-20] MEDS: LEVOTHYROXINE 75 MCG (LEVOTHROID) TABLET PO SCH ×2 (06:46→09:38)
[2021-02-20] MEDS: IBUPROFEN TABLET 200 MG TAB PO SCH ×3 (06:47→17:33)
[2021-02-20 07:07] LABS: EOSINOPHILS % (AUTO) 0 % (0-10); HEMOGLOBIN 12.4 g/dL (11.5-16.0); MEAN CORPUSCULAR VOLUME 101 fL (80-99); MONOCYTES # (AUTO) 0.2 10^3/uL (0.0-1.0); MONOCYTES % (AUTO) 2 % (0-12)
[2021-02-20 07:09] LABS: BASOPHILS % (AUTO) 0 % (0-10); HEMATOCRIT 38 % (35-52); LYMPHOCYTES # (AUTO) 0.3 10^3/uL (1.0-4.0); LYMPHOCYTES % (AUTO) 3 % (12-44); MEAN CORPUSCULAR HEMOGLOBIN 33 pg (25-34); MEAN CORPUSCULAR HGB CONC 33 g/dL (32-36); MEAN PLATELET VOLUME 12.3 fL (9.0-12.2); NEUTROPHILS # (AUTO) 8.3 10^3/uL (1.8-7.8); NEUTROPHILS % (AUTO) 90 % (42-75); PLATELET COUNT 140 10^3/uL (130-400); WHITE BLOOD COUNT 9.2 10^3/uL (4.3-11.0)
[2021-02-20 07:26] LABS: ALBUMIN 3.2 GM/DL (3.2-4.5)
[2021-02-20 07:27] LABS: POTASSIUM 3.5 MMOL/L (3.6-5.0)
[2021-02-20 07:28] LABS: CALCIUM 8.6 MG/DL (8.5-10.1)
[2021-02-20 07:29] LABS: TOTAL PROTEIN 5.4 GM/DL (6.4-8.2)
[2021-02-20 07:31] LABS: BILIRUBIN,TOTAL 0.5 MG/DL (0.1-1.0)
[2021-02-20 08:14] VITALS: BP 138/70
--- NOTE | 2021-02-20 08:37 | Progress Note - Surgery ---
MERA MARI MED STUDENT 02/20/21 0837: Subjective Date Seen by a Provider: Feb 20, 2021 Time Seen by a Provider: 07:50 Subjective/Events-last exam Mrs. Lowery is sleeping in bed this morning but is easily woken. She states she is not having any pain at all this morning. She is eating and drinking okay, no vomiting. She does complain of very minimal nausea but zofran is helping a lot. She states her stools are beginning to form as well and are not as soft. She is able to walk okay. I told her the plan was to check her stool this morning and she is happy with that plan. Review of Systems General: No Chills HEENT: No Head Aches, No Visual Changes, No Ear Pain Pulmonary: No Dyspnea, No Cough Cardiovascular: No: Chest Pain, Palpitations, Edema Gastrointestinal: Nausea (mild), Diarrhea (stools are becomming more formed); No: Vomiting, Abdominal Pain, Constipation, Melena Genitourinary: No Dysuria, No Incontinence, No Hematuria Musculoskeletal: No: leg pain, foot pain Neurological: No: Weakness Objective Exam Vital Signs Date Time Temp Pulse Resp B/P (MAP) Pulse Ox O2 Delivery O2 Flow Rate FiO2 02/20/21 08:14 37.4 107 20 138/70 (92) 90 Room Air 02/20/21 03:18 98 Room Air 02/19/21 23:55 37.5 20 18 146/83 (104) 90 Room Air 02/19/21 22:13 97 Room Air 02/19/21 22:12 97 Room Air 02/19/21 20:00 Room Air 02/19/21 16:09 36.4 121 20 139/76 (97) 93 Room Air 02/19/21 14:11 90 Room Air I & O 02/20/21 06:59 Intake Total 1360 ml Balance 1360 ml Capillary Refill : Less Than 3 Seconds General Appearance: No Apparent Distress, WD/WN, Chronically ill, Thin HEENT: PERRL/EOMI, Normal ENT Inspection, Pharynx Normal Respiratory: Chest Non Tender, Lungs Clear, Normal Breath Sounds, No Accessory Muscle Use, No Respiratory Distress Cardiovascular: Regular Rate, Rhythm, No Edema, No Murmur, Normal Peripheral Pulses Peripheral Pulses: 2+ Dorsalis Pedis (R), 2+ Left Dors-Pedis (L), 2+ Radial Pulses (R), 2+ Radial Pulses (L) Gastrointestinal: normal bowel sounds, soft, tenderness (Only very mild tenderness on bilateral sides of abdomen, improved from yesterday), other (some healed surgical scars on abdomen but not bruising or other lesions noted. No distension) Extremity: Normal Inspection, Non Tender, No Calf Tenderness, No Pedal Edema Neurologic/Psychiatric: Alert, Oriented x3, Normal Mood/Affect Skin: Normal Color, Warm/Dry Results Lab Laboratory Tests 02/20/21 06:13: White Blood Count 9.2, Red Blood Count 3.72L, Hemoglobin 12.4, Hematocrit 38, Mean Corpuscular Volume 101H, Mean Corpuscular Hemoglobin 33, Mean Corpuscular Hemoglobin Concent 33, Red Cell Distribution Width 13.2, Platelet Count 140, Mean Platelet Volume 12.3H, Immature Granulocyte % (Auto) 5, Neutrophils (%) (Auto) 90H, Lymphocytes (%) (Auto) 3L, Monocytes (%) (Auto) 2, Eosinophils (%) (Auto) 0, Basophils (%) (Auto) 0, Neutrophils # (Auto) 8.3H, Lymphocytes # (Auto) 0.3L, Monocytes # (Auto) 0.2, Eosinophils # (Auto) 0.0, Basophils # (Auto) 0.0, Immature Granulocyte # (Auto) 0.4H, Percent Immature Platelet Fraction 7.6, Sodium Level 142, Potassium Level 3.5L, Chloride Level 102, Carbon Dioxide Level 29, Anion Gap 11, Blood Urea Nitrogen 24H, Creatinine 1.00, Estimat Glomerular Filtration Rate 55, BUN/Creatinine Ratio 24, Glucose Level 272H, Calcium Level 8.6, Corrected Calcium 9.2, Total Bilirubin 0.5, Aspartate Amino Transf (AST/SGOT) 13, Alanine Aminotransferase (ALT/SGPT) 10, Alkaline Phosphatase 53, Total Protein 5.4L, Albumin 3.2 Microbiology 02/16/21 Blood Culture - Preliminary, Resulted No growth 02/16/21 Urine Culture - Final, Complete NO GROWTH Assessment/Plan Assessment/Plan Assessment/Plan Loose stools Nausea History of multiple abdominal surgeries including hemicolectomy, and ostomy w/ reversal. Hx of lung transplant UTI COPD Exacerbation Patient states that her nausea and stools are improved quite a bit today. Explained to her that we will be doing some stool studies and she feels this is a good plan. UTI is being teated with ceftriaxone and is improving well. COPD improving she is on RA. At this time there is probably no need to get a CT due to improvement in her symptoms, will see the results of her stool studies. Continue with cady. JEFERSONLISAVIRGINIA Dunham DO 02/20/21 1524: Subjective Time Seen by a Provider: 14:28 Subjective/Events-last exam Pt seen and examined, she was walking in the [place]. Pt stated she had more of a formed BM this am, but then later had an uncontrolled BM/accident while walking. Her main concern is she wants to know what is going on and why she is having these problems; mostly because she is scared about the possibility of ischemic bowel. When asked she said it occurred last time "because my whole body was shutting down". Review of Systems General: No Chills Pulmonary: No Dyspnea, No Cough Cardiovascular: No: Chest Pain, Palpitations Gastrointestinal: Nausea (mild), Diarrhea (stools are becomming more formed); No: Vomiting, Abdominal Pain, Constipation, Melena Objective Exam General Appearance: No Apparent Distress, Chronically ill, Thin Respiratory: Lungs Clear, Normal Breath Sounds, No Accessory Muscle Use, No Respiratory Distress Cardiovascular: Regular Rate, Rhythm, No Murmur Gastrointestinal: soft, tenderness (Only very mild tenderness on bilateral sides of abdomen, improved from yesterday), other (some healed surgical scars on abdomen but not bruising or other lesions noted. No distension) Assessment/Plan Assessment/Plan Assessment/Plan Loose stools Nausea History of multiple abdominal surgeries including hemicolectomy, and ostomy w/ reversal. Hx of lung transplant UTI COPD Exacerbation Patient states that her nausea and stools are improved quite a bit today. Explained to her that we will be doing some stool studies and she feels this is a good plan. UTI is being teated with ceftriaxone and is improving well. COPD improving she is on RA. At this time there is probably no need to get a CT due to improvement in her symptoms, will see the results of her stool studies. Continue with cady. Supervisory-Addendum Brief Verification & Attestation Participated in pt care: history, MDM, physical Personally performed: exam, history, MDM, supervision of care Care discussed with: Medical Student Procedures: n/a Verification and Attestation of Medical Student E/M Service A medical student performed and documented this service. I then reviewed and verified all information documented by the medical student and made modifications to such information, when appropriate. I personally performed a physical exam, medical decision making and then discussed any differences between the notes and made revisions as necessary to create one note. Virginia Jenkins , 02/20/21 , 15:24 MERA MARI MED STUDENT Feb 20, 2021 08:37 VIRGINIA JENKINS DO Feb 20, 2021 15:24
[2021-02-20] MEDS ORDERED: DAPSONE 25 MG TABLET PO SCH (09:00)
[2021-02-20] MEDS: VIT D PO SCH ×2 (09:37→17:33)
[2021-02-20] MEDS: ONDANSETRON 4 MG (ZOFRAN) ORAL DISSOLVE TAB PO PRN ×2 (09:37→17:33)
[2021-02-20] MEDS: CALCIUM CARB PO SCH ×2 (09:37→17:33)
[2021-02-20] MEDS: LORATADINE (CLARITIN) 10 MG TAB PO SCH (09:38)
[2021-02-20] MEDS: azaTHIOprine (IMURAN) 50 MG TAB PO SCH (09:38)
[2021-02-20] MEDS: amLODIPine 5 MG (NORVASC) TAB PO SCH (09:38)
[2021-02-20] MEDS: PANTOPRAZOLE 40 MG (PROTONIX) TAB PO SCH (09:40)
[2021-02-20] MEDS: DULOXETINE 60 MG PO SCH (09:40)
[2021-02-20] MEDS: [UNRECOGNIZED DRUG - REMARK] PO SCH ×2 (09:41→21:06)
[2021-02-20] MEDS: [UNRECOGNIZED DRUG - REMARK] PO SCH (09:41)
[2021-02-20] MEDS: DAPSONE 25 MG TABLET PO SCH (09:42)
--- NOTE | 2021-02-20 09:50 | Physician Query Clarification ---
Physician Query-General Query to Physician: The medical record reflects the following clinical scenario: The patient, in the setting of History/Risk factors, COPD, Lung transplant, HTN Clinical Findings SpO2 84% sat on Room Air, Troponin I increased from >0.028 to 0.065 Treatment Supplemental 02, Solumedrol IV, Albuterol, Enoxaparin, Cardiology con sult, consider stress test as outpatient Question: Do you agree with the impression of "Likely, Type 2 MT, secondary to hypoxemia" per Dr. Laurent Whitney? 1. Yes; will document Likely Type 2 MT in the Progress Notes 2. No; will continue current documentation in the Progress Notes 3. Other; will document explanation of clinical findings 4. Clinically undetermined; no explanation for clinical findings Please clarify and document your clinical opinion in the Progress Notes and Discharge Summary including the definitive and/or presumptive diagnosis, (suspected or probable), related to the above clinical findings. Please include clinical findings supporting your diagnosis. In responding to this query, please exercise your independent professional judgment. The purpose of this communication is to more accurately reflect the complexity of your patients condition. The fact that a question is asked does not imply that any particular answer is desired or expected. Please remember a lack of response to the above will prompt a phone page by CDI/coding staff Thank you for timely response to this clarification. Kemi Bishop MSN, RN Clinical Folding Machine Setter [phone] [email or web address] PHYSICIAN RESPONSE: Based on the clinical findings in the record, please respond to the query above on this document as an addendum. Physician Response: Physician Response yes If you have questions please contact: Pc Maintenance Technician: Ext: Thank you for your time and cooperation. Clinical Folding Machine Setter/Pc Maintenance Technician This is a permanent part of the medical record KEMI BISHOP Feb 20, 2021 09:50 JOSE ALEJANDRO DO Feb 20, 2021 10:40
[2021-02-20] MEDS: RT--FLUTICASONE/SALMETEROL 113-14 (AIRDUO RespiCLICK) IH SCH ×2 (10:19→21:39)
[2021-02-20] MEDS ORDERED: KCL 20 MEQ TAB (K-DUR) PO ONE (11:00)
--- NOTE | 2021-02-20 11:52 | Cardiology Progress Note ---
Subjective Date Seen by Provider: Feb 20, 2021 Time Seen by Provider: 11:51 Subjective/Events-last exam Patient is laying down in bed, feeling better, breathing better. Review of Systems General: No Chills, No Night Sweats, No Fatigue, No Malaise, No Appetite, No Other HEENT: No Head Aches, No Visual Changes, No Eye Pain, No Ear Pain, No Dysphasia, No Sinus Congestion, No Post Nasal Drip, No Sore Throat, No Other Pulmonary: Dyspnea; No Cough, No Pleuritic Chest Pain, No Other Cardiovascular: No: Chest Pain, Palpitations, Orthopnea, Paroxysmal Noc. Dyspnea, Edema, Lt Headedness, Other Objective-Cardiology Exam Last Set of Vital Signs Vital Signs 02/18/21 02/18/21 02/20/21 02/20/21 08:05 13:56 08:14 10:19 Temp 37.4 Pulse 107 Resp 20 B/P (MAP) 138/70 (92) Pulse Ox 94 O2 Delivery Room Air O2 Flow Rate 2.00 FiO2 28 I&O Intake and Output 02/19/21 23:59 Intake Total 1340 ml Balance 1340 ml Intake Oral 1340 ml # Voids 5 # Bowel Movements 2 General: Alert, Oriented X3, Cooperative, No Acute Distress HEENT: Atraumatic, PERRLA, EOMI, Mucous Memb Moist/[place] Neck: Supple, No JVD Lungs: Normal Air Movement, Other (Bilateral rhonchi) Heart: Regular Rate, Normal S1, Normal S2, No Murmurs, Gallops, Rubs Abdomen: Soft, No Tenderness Extremities: No Edema Skin: No Rashes Neuro: Normal Speech Psych/Mental Status: Mental Status NL Results Lab Laboratory Tests 02/20/21 06:13 A/P-Cardiology Admission Diagnosis AE COPD UTI Elevated troponin HTN Assessment/Plan AE COPD, likely secondary to URI, improving slowly, management per medical serv ices. Hx of left lung transplant approx 6 years ago UTI, on antibiotic, management per medical services. Mildly elevated troponin, likely type 2 FL secondary to hypoxemia. Will consider doing a stress test as an outpatient. Diabetes mellitus, poorly controlled, managed by primary care physician HTN- controlled, continue to monitor. ExTobaccoism Anxiety/depression. TOO COOK MD Feb 20, 2021 11:52
--- NOTE | 2021-02-20 13:28 | Progress Note ---
MERA HILL 02/20/21 1328: Progress Note Patient Name: Augusta Lowery Admission Date: 02/16/21 Discharge Date: 02/20/21 Attending Physician: Dr. Alejandro Admitting Diagnosis: COPD exacerbation Discharge Diagnosis: Same Consultations: Dr. Beal, Surgery; Dr. Whitney, Cardiology Procedures: none Complications: none Brief Hospital Course: Augusta Lowery, a 70 year old female patient with a history of COPD and a left lung transplant presented to the [facility] ED for complaints of shortness of breath, cough, and hypoxia. Notable findings in the ED included an oxygen saturation of 84% on room air, negative rapid flu and COVID19 tests, a urinalysis suspicious for UTI, a low serum potassium of 2.9, a normal troponin, a chest xray negative for pneumonia, and a chest CT negative for pulmonary embolism. Ultimately, she was admitted to 4th floor med/surg for COPD exacerbation. While on the floor, the patients oxygen needs were weaned with treatment and she is now on room air. She remained concerned about nausea, but this improved with appropriate medication. Consulted surgery for evaluation of the patients nausea, as she equated her current condition to how she felt when she had bowel ischemia. Stool culture and parasite screen were ordered and results are still pending. Consulted cardiology for evaluation of chest tightness. An EKG showed a probably anteroseptal infarct of indeterminate age and an echo showed and EF of 50-55% with no wall motion abnormalities. Continued appropriate evaluation and management on the general medicine floor service and she progressed well there. She was monitored and treated according to consulting specialists recommendati ons and the standard of care. Symptoms were managed well with Zofran, IV methylprednisolone, IV azithromycin, and oxygen via nasal cannula. No evidence of AMS or end organ dysfunction were noted during this admission. No episodes of oxygen desaturations at rest or during exertion requiring more aggressive noninvasive ventilation or invasive ventilation devices were observed. No signs or symptoms of pathological bleeding were noted. She was evaluated for her problems and deemed appropriate for transfer to a swing bed. Upon the day of dismissal the patient was in agreement with the plan. The patient was noted by providers, nursing, and/or ancillary staff members to be tolerating the appropriate diet, having bowel movement(s), ambulating, oxygenating, and communicating at their prior baseline prior to transfer. All questions were answered prior to the patient's transfer. Discharge Plan: Transfer to swing bed Condition at Discharge: Stable Activity: As tolerated Diet: Standard FLAVIALUCILA IRENE 02/21/21 0804: Progress Note Pt doing well Feels like her cough is much improved Rocephin and Azithromycin maintained IV steroids maintained Pt appears to be very very frail and complicated PT/OT will be reordered AFVSS, frail, pale, O x 3 RRR, CTAB diminshed in bases No edema Assessment: AECOPD Elevated troponin Lung transplant status 5 yrs ago Nausea Ischemic colon resection Plan: IV abx Monitor closely Supervisory-Addendum Brief Verification & Attestation Participated in pt care: history, MDM, physical Personally performed: exam, history, MDM, supervision of care Care discussed with: Medical Student Procedures: n/a Results interpretation: Verified all documentation Verification and Attestation of Medical Student E/M Service A medical student performed and documented this service in my presence. I reviewed and verified all information documented by the medical student and made modifications to such information, when appropriate. I personally performed the physical exam and medical decision making. Lucila Alejandro, Feb 21, 2021,08:03 MERA HILL Feb 20, 2021 13:28 LUCILA ALEJANDRO DO Feb 21, 2021 08:04
--- NOTE | 2021-02-20 13:41 | Physical Therapy Evaluation ---
PT Evaluation-General Medical Diagnosis Admission Date Feb 16, 2021 at 20:45 Medical Diagnosis: COPD exacerbation with hypoxia Onset Date: Feb 16, 2021 Therapy Diagnosis Therapy Diagnosis: debility Height/Weight Height (Feet): 5 Height (Inches): 0 Weight (Pounds): 100 Weight (Ounces): 0 Precautions Precautions/Isolations: Airborne Isolation, Contact Isolation Referral Physician: Yoan Reason for Referral: Evaluation/Treatment Medical History Pertinent Medical History: COPD, HTN, Hypothroidism Current History Reeval per physician to walk. Reviewed History: Yes Social History Home: Single Level Current Living Status: Other Family Entry Into Home: Stairs With Railing Prior Prior Level of Function SCALE: Activities may be completed with or without assistive devices. 9-Wweiscrwms-wuvxnky completes the activity by him/herself with no assistance from a helper. 5-Set-up or Clean-up Assistance-helper sets up or cleans up; patient completes activity. [place] assists only prior to or following the activity. 4-Supervision or Touching Assistance-helper provides verbal cues and/or touching/steadying and/or contact guard assistance as patient completes activity. Assistance may be provided throughout the activity or intermittently. 3-Partial/Moderate Assistance-helper does LESS THAN HALF the effort. [place] lifts, holds or supports trunk or limbs, but provides less than half the effort. 2-Substantial/Maximal Assistance-helper does MORE THAN HALF the effort. [place] lifts or holds trunk or limbs and provides more than half the effort. 1-Ppaigages-mrxudh does ALL the effort. Patient does none of the effort to complete the activity. Or, the assistance of 2 or more helpers is required for the patient to complete the activity. If activity was not attempted, code reason: 7-Patient Refused. 9-Not Applicable-not attempted and the patient did not perform the activity before the current illness, exacerbation or injury. 10-Not Attempted due to Environmental Limitations-(lack of equipment, weather restraints, etc.). 88-Not Attempted due to Medical Conditions or Safety Concerns. Bed Mobility: 6 Transfers (B,C,W/C): 6 Gait: 6 Stairs: 6 Indoor Mobility (Ambulation): Independent Stairs: Independent Prior Devices Use: None PT Evaluation-Current Subjective Patient reports she is up independently in room. Agrees to PT. Objective Patient Orientation: Normal For Age ROM/Strength ROM Lower Extremities bilateral LE WFL Strength Lower Extremities 4/5 grossly bilateral LE Integumentary/Posture Bowel Incontinence: No Bladder Incontinence: No Posture WFL Neuromuscular (Tone, Coordination, Reflexes) grossly intact Sensory Vision: Wears Glasses Hearing: Functional Transfers Roll Left to Right (QC): 6 Lying to Sitting/Side of Bed(Q: 6 Sit to Stand (QC): 6 Chair/Hib-lp-Dkxin Xfer(QC): 6 Toilet Transfer (QC): 6 Gait Does the Patient Walk?: Yes Mode of Locomotion: Walk Anticipated Mode of Locomotion: Walk Walk 10 feet (QC): 6 Walk 50 ft with 2 Turns(QC): 6 Walk 150 ft (QC): 6 Distance: 800' Gait Assistive Device: None Comments/Gait Description safe and functional with no deviation Balance Sitting Static: Normal Sitting Dynamic: Normal Standing Static: Normal Standing Dynamic: Normal Assessment/Needs Patient donns mask and gown (as a robe) independently. Ambulated in hallway independently 800' with Normal balance and mild SOA with 1 standing recovery period. PT instructed patient and nursing staff to have patient ambulate in hallway independently PRN. Both voice understanding. Rehab Potential: Fair PT Plan Treatment/Plan Treatment Plan: Discontinue PT, goals met Treatment Duration: Feb 20, 2021 Frequency: 1 time per week Estimated Hrs Per Day: .25 hour per day Patient and/or Family Agrees t: Yes Time/GCodes Time In: 1302 Time Out: 1313 Total Billed Treatment Time: 11 Total Billed Treatment 1 visit EVLowC 11 min FLORIDA MCKENNA PT Feb 20, 2021 13:41
[2021-02-20 15:59] VITALS: BP 133/74
[2021-02-20] MEDS: AZITHROMYCIN 250 MG TAB (ZITHROMAX) PO SCH (21:05)
[2021-02-20] MEDS: MONTELUKAST 10 MG (SINGULAIR) TAB PO SCH (21:05)
[2021-02-20] MEDS: DULoxetine 30 MG (CYMBALTA) CAP PO SCH (21:10)
[2021-02-20] MEDS: QUEtiapine 25 MG (SEROquel) TAB IMMEDIATE RELEASE PO SCH (21:12)
[2021-02-20] MEDS: cefTRIAXone 1 GM PRE-MIX 50 ML IV SCH (21:12)
[2021-02-20] MEDS: [UNRECOGNIZED DRUG - REMARK] PO SCH (21:15)
[2021-02-20] MEDS: ENOXAPARIN 40 MG/0.4 ML (LOVENOX) SYR SC SCH (21:16)
[2021-02-21] MEDS: methylPREDNISolone 40 MG/ML (Solu-MEDROL) VIAL IV SCH ×3 (00:16→13:21)
[2021-02-21 00:19] VITALS: BP 137/85
[2021-02-21] MEDS: IBUPROFEN TABLET 200 MG TAB PO SCH ×3 (00:47→13:21)
[2021-02-21] MEDS: RT-ALBUTEROL HFA 8.5 GM INHALER IH SCH ×2 (02:47→09:55)
[2021-02-21] MEDS: LEVOTHYROXINE 75 MCG (LEVOTHROID) TABLET PO SCH ×2 (06:40→09:45)
[2021-02-21 06:42] LABS: BASOPHILS % (AUTO) 0 % (0-10); EOSINOPHILS % (AUTO) 0 % (0-10); HEMATOCRIT 40 % (35-52); LYMPHOCYTES # (AUTO) 0.3 10^3/uL (1.0-4.0); LYMPHOCYTES % (AUTO) 4 % (12-44); MEAN CORPUSCULAR HEMOGLOBIN 33 pg (25-34); MEAN CORPUSCULAR HGB CONC 33 g/dL (32-36); MEAN CORPUSCULAR VOLUME 101 fL (80-99); MEAN PLATELET VOLUME 11.6 fL (9.0-12.2); MONOCYTES # (AUTO) 0.3 10^3/uL (0.0-1.0); MONOCYTES % (AUTO) 4 % (0-12); NEUTROPHILS # (AUTO) 6.3 10^3/uL (1.8-7.8); NEUTROPHILS % (AUTO) 89 % (42-75); PLATELET COUNT 131 10^3/uL (130-400)
[2021-02-21 06:53] LABS: ALBUMIN 3.2 GM/DL (3.2-4.5)
[2021-02-21 06:55] LABS: CALCIUM 8.6 MG/DL (8.5-10.1)
[2021-02-21 06:56] LABS: TOTAL PROTEIN 5.3 GM/DL (6.4-8.2)
[2021-02-21 06:58] LABS: BILIRUBIN,TOTAL 0.5 MG/DL (0.1-1.0)
[2021-02-21 07:00] LABS: CREATININE SERUM 1.06 MG/DL (0.60-1.30)
[2021-02-21] MEDS ORDERED: KCL 10 MEQ TAB (MICRO K) PO SCH (07:00)
[2021-02-21 08:00] VITALS: BP 159/84
--- NOTE | 2021-02-21 09:01 | Progress Note ---
Subjective Date Seen by a Provider: Feb 21, 2021 Time Seen by a Provider: 08:00 Subjective/Events-last exam doing better. stools more formed. resp status improved. Objective Exam Vital Signs Date Time Temp Pulse Resp B/P (MAP) Pulse Ox O2 Delivery O2 Flow Rate FiO2 02/21/21 02:48 93 Room Air 02/21/21 00:19 37.1 110 22 137/85 (102) 92 Room Air 02/20/21 21:39 93 Room Air 02/20/21 21:36 93 Room Air 02/20/21 20:00 Room Air 02/20/21 15:59 37.4 127 18 133/74 (93) 90 Room Air 02/20/21 15:14 93 Room Air 02/20/21 10:19 94 Room Air I & O 02/21/21 07:00 Intake Total 2290 ml Output Total 950 ml Balance 1340 ml Capillary Refill : Less Than 3 Seconds General Appearance: No Apparent Distress HEENT: PERRL/EOMI Neck: Full Range of Motion Respiratory: Chest Non Tender, Decreased Breath Sounds, Rhonci Cardiovascular: Regular Rate, Rhythm Gastrointestinal: normal bowel sounds, non tender, soft Extremity: Normal Capillary Refill Neurologic/Psychiatric: Alert, Oriented x3 Skin: Normal Color Lymphatic: No Adenopathy Results Lab Laboratory Tests 02/21/21 06:19: White Blood Count 7.0, Red Blood Count 3.96, Hemoglobin 13.0, Hematocrit 40, Mean Corpuscular Volume 101H, Mean Corpuscular Hemoglobin 33, Mean Corpuscular Hemoglobin Concent 33, Red Cell Distribution Width 12.7, Platelet Count 131, Me an Platelet Volume 11.6, Immature Granulocyte % (Auto) 3, Neutrophils (%) (Auto) 89H, Lymphocytes (%) (Auto) 4L, Monocytes (%) (Auto) 4, Eosinophils (%) (Auto) 0, Basophils (%) (Auto) 0, Neutrophils # (Auto) 6.3, Lymphocytes # (Auto) 0.3L, Monocytes # (Auto) 0.3, Eosinophils # (Auto) 0.0, Basophils # (Auto) 0.0, Immature Granulocyte # (Auto) 0.2H, Sodium Level 143, Potassium Level 4.0, Chloride Level 101, Carbon Dioxide Level 30, Anion Gap 12, Blood Urea Nitrogen 28H, Creatinine 1.06, Estimat Glomerular Filtration Rate 51, BUN/Creatinine Ratio 26, Glucose Level 261H, Calcium Level 8.6, Corrected Calcium 9.2, Total Bilirubin 0.5, Aspartate Amino Transf (AST/SGOT) 15, Alanine Aminotransferase (ALT/SGPT) 16, Alkaline Phosphatase 61, Total Protein 5.3L, Albumin 3.2 Microbiology 02/16/21 Blood Culture - Preliminary, Resulted No growth 02/16/21 Urine Culture - Final, Complete NO GROWTH Assessment/Plan Assessment/Plan Assess & Plan/Chief Complaint resp insufficiency and diarrhea likely due to dehydration and low flow states. hx PVD and ischemic colitis s/p LHC. doing better now with more formed stools, no abd pain and normal WBC. diet as JACK Gallegos MD Feb 21, 2021 09:01
--- NOTE | 2021-02-21 09:40 | Progress Note ---
Subjective Date Seen by a Provider: Feb 21, 2021 Objective Exam Last Set of Vital Signs Vital Signs Date Time Temp Pulse Resp B/P (MAP) Pulse Ox O2 Delivery O2 Flow Rate FiO2 02/21/21 02:48 93 Room Air 02/21/21 00:19 37.1 110 22 137/85 (102) 02/18/21 13:56 28 02/18/21 08:09 Capillary Refill : Less Than 3 Seconds I&O Intake and Output 02/21/21 00:00 Intake Total 2330 ml Output Total 950 ml Balance 1380 ml Intake Oral 1670 ml IV Total 660 ml Output Urine Total 950 ml # Voids 7 # Bowel Movements 7 Results Lab Laboratory Tests 02/21/21 06:19: White Blood Count 7.0, Red Blood Count 3.96, Hemoglobin 13.0, Hematocrit 40, Mean Corpuscular Volume 101H, Mean Corpuscular Hemoglobin 33, Mean Corpuscular Hemoglobin Concent 33, Red Cell Distribution Width 12.7, Platelet Count 131, Mean Platelet Volume 11.6, Immature Granulocyte % (Auto) 3, Neutrophils (%) (Auto) 89H, Lymphocytes (%) (Auto) 4L, Monocytes (%) (Auto) 4, Eosinophils (%) (Auto) 0, Basophils (%) (Auto) 0, Neutrophils # (Auto) 6.3, Lymphocytes # (Auto) 0.3L, Monocytes # (Auto) 0.3, Eosinophils # (Auto) 0.0, Basophils # (Auto) 0.0, Immature Granulocyte # (Auto) 0.2H, Sodium Level 143, Potassium Level 4.0, Chloride Level 101, Carbon Dioxide Level 30, Anion Gap 12, Blood Urea Nitrogen 28H, Creatinine 1.06, Estimat Glomerular Filtration Rate 51, BUN/Creatinine Ratio 26, Glucose Level 261H, Calcium Level 8.6, Corrected Calcium 9.2, Total Bilirubin 0.5, Aspartate Amino Transf (AST/SGOT) 15, Alanine Aminotransferase (ALT/SGPT) 16, Alkaline Phosphatase 61, Total Protein 5.3L, Albumin 3.2 Microbiology 02/16/21 Blood Culture - Preliminary, Resulted No growth 02/16/21 Urine Culture - Final, Complete NO GROWTH Assessment/Plan Assessment/Plan Assess & Plan/Chief Complaint Complex issues Dr Beal consult Appreciate Dr Whitney Clinical Quality Measures Admission Status Admission Dx Assessment: Acute exacerbation of COPD Bacterial Bronchitis UTI History of lung transplant Immunocompromised Status post Covid vaccines with booster and flu vaccine Osteoporosis Plan: IV steroids O2 ICS Home meds UTI tx IV abx JOSE ALEJANDRO DO Feb 21, 2021 09:40
[2021-02-21] MEDS: azaTHIOprine (IMURAN) 50 MG TAB PO SCH (09:45)
[2021-02-21] MEDS: LORATADINE (CLARITIN) 10 MG TAB PO SCH (09:45)
[2021-02-21] MEDS: amLODIPine 5 MG (NORVASC) TAB PO SCH (09:45)
[2021-02-21] MEDS: PANTOPRAZOLE 40 MG (PROTONIX) TAB PO SCH (09:48)
[2021-02-21] MEDS: DULOXETINE 60 MG PO SCH (09:49)
[2021-02-21] MEDS: CALCIUM CARB PO SCH (09:50)
[2021-02-21] MEDS: VIT D PO SCH (09:50)
[2021-02-21] MEDS: [UNRECOGNIZED DRUG - REMARK] PO SCH (09:51)
[2021-02-21] MEDS: RT--FLUTICASONE/SALMETEROL 113-14 (AIRDUO RespiCLICK) IH SCH (09:54)
[2021-02-21] MEDS ORDERED: CYCLOSPORINE 25 MG PO SCH ×2 (10:32→21:00)
[2021-02-21] MEDS: ONDANSETRON 4 MG (ZOFRAN) ORAL DISSOLVE TAB PO PRN (11:43)
[2021-02-21 11:58] VITALS: BP 137/85
--- NOTE | 2021-02-21 12:20 | Cardiology Progress Note ---
Subjective Date Seen by Provider: Feb 21, 2021 Time Seen by Provider: 12:19 Subjective/Events-last exam Patient is laying down in bed, feeling better, breathing better. Noted to have sinus tachycardia Review of Systems General: No Chills, No Night Sweats; Fatigue, Malaise; No Appetite, No Other HEENT: No Head Aches, No Visual Changes, No Eye Pain, No Ear Pain, No Dy sphasia, No Sinus Congestion, No Post Nasal Drip, No Sore Throat, No Other Pulmonary: No Dyspnea, No Cough, No Pleuritic Chest Pain, No Other Cardiovascular: No: Chest Pain, Palpitations, Orthopnea, Paroxysmal Noc. Dyspnea, Edema, Lt Headedness, Other Gastrointestinal: Nausea Objective-Cardiology Exam Last Set of Vital Signs Vital Signs 02/18/21 02/21/21 02/21/21 02/21/21 08:05 00:19 08:00 11:58 Temp 37.1 Pulse 110 Resp 22 B/P (MAP) 137/85 (102) Pulse Ox 93 O2 Delivery Room Air O2 Flow Rate 2.00 FiO2 21 I&O Intake and Output 02/21/21 00:00 Intake Total 2330 ml Output Total 950 ml Balance 1380 ml Intake Oral 1670 ml IV Total 660 ml Output Urine Total 950 ml # Voids 7 # Bowel Movements 7 General: Alert, Oriented X3, Cooperative, No Acute Distress HEENT: Atraumatic, PERRLA, EOMI, Mucous Memb Moist/[place] Neck: Supple, No JVD Lungs: Normal Air Movement, Other (Bilateral rhonchi) Heart: Regular Rate, Normal S1, Normal S2, No Murmurs, Gallops, Rubs Abdomen: Soft, No Tenderness Extremities: No Edema Skin: No Rashes Neuro: Normal Speech Psych/Mental Status: Mental Status NL Results Lab Laboratory Tests 02/21/21 06:19 A/P-Cardiology Admission Diagnosis AE COPD UTI Elevated troponin HTN Assessment/Plan AE COPD, likely secondary to URI, improving slowly, management per medical services. Hx of left lung transplant approx 6 years ago UTI, on antibiotic, management per medical services. Mildly elevated troponin, likely type 2 [place] secondary to hypoxemia. Will consider doing a stress test as an outpatient. Diabetes mellitus, poorly controlled, managed by primary care physician HTN- controlled, continue to monitor. ExTobaccoism Anxiety/depression. TOO COOK MD Feb 21, 2021 12:20
[2021-02-21] MEDS ORDERED: MTP25TSR PO (14:17)
[2021-02-21] MEDS ORDERED: CYCL25CA24 PO ×2 (14:17)
[2021-02-21] MEDS ORDERED: ALBU18HF2 INH (14:17)
[2021-02-21] MEDS ORDERED: LORA10TA7 PO (14:17)
[2021-02-21] MEDS ORDERED: FLUT1AER4 IH (14:17)
[2021-02-21] MEDS ORDERED: PRED10TA22 PO (14:17)
[2021-02-21] MEDS ORDERED: CEFD300C3 PO (14:17)
[2021-02-21] MEDS ORDERED: ONDA4TAB11 PO (14:17)
[2021-02-21] MEDS ORDERED: [UNRECOGNIZED DRUG - CODE] PO (14:17)
[2021-02-21] MEDS ORDERED: MONT-40 PO (14:17)
--- NOTE | 2021-02-21 14:18 | Discharge Summary ---
Diagnosis/Chief Complaint Date of Admission Feb 16, 2021 at 20:45 Date of Discharge Discharge Date: Feb 21, 2021 Discharge Diagnosis AECOPD Bronchitis bacterial Lung transplant status Previous ischemic colitis s/p resection 5 yrs ago Nausea recurrent Abnormal UA but UCx negative Elevated troponin prompting cardiology consult Immunosuppressed Previous smoker Reason Hospital Visit CC: SOB HPI: 70 yr WF ex- and mother of my current clinic pt. Pt presents to ER with SOB for past two weeks. Pt has received both Covid vaccines and booster. Pt has history of COPD and previous lung transplant 5 years ago. Pt doesn't use oxygen or inhaler at home. Pt doesn't take anti-rejection medications. She does feel better but her lungs need more time. I will help lock her IV fluid. Pt is on Rocephin for UTI and Azithromycin to cover for atypical pneumonia. She is requiring IV steroids. Discharge Summary Discharge Physical Examination Allergies: Coded Allergies: Sulfa (Sulfonamide Antibiotics) (Verified Allergy, Unknown, 10/05/18) Vitals & I&Os Vital Signs Date Time Temp Pulse Resp B/P (MAP) Pulse Ox O2 Delivery O2 Flow Rate FiO2 02/21/21 15:33 35.6 102 18 159/84 (109) 94 Room Air 02/21/21 11:58 21 02/18/21 08:09 General Appearance: Alert, Oriented X3, Cooperative, Other (thin) Respiratory: Clear to Auscultation Cardiovascular: Regular Rate Hospital Course Was the Problem List Reviewed?: Yes Lengthy course after admitted for AECOPD and UTI and bacterial bronchitis. Patient was placed on aggressive IV steroids and IV abx. 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 Elevated troponin prompted ECHO and Cardiology consultation. Labs remained stable. Immunosuppressant meds maintained. ICS sent to pharmacy along with other meds she needed refilled and abx along with steroid taper. Labs (last 24 hrs) Laboratory Tests 02/16/21 18:34: Urine Color DARK YELLOW, Urine Clarity CLEAR, Urine pH 7.0, Urine Specific Pratt 1.015L, Urine Protein NEGATIVE, Urine Glucose (UA) NEGATIVE, Urine Ketones TRACEH, Urine Nitrite NEGATIVE, Urine Bilirubin NEGATIVE, Urine Urobilinogen 2.0, Urine Leukocyte Esterase 2+H, Urine RBC (Auto) NEGATIVE, Urine RBC 0-2, Urine WBC 10-25H, Urine Squamous Epithelial Cells 0-2, Urine Renal Epithelial Cells NONE, Urine Crystals NONE, Urine Bacteria FEWH, Urine Casts NONE, Urine Mucus NEGATIVE, Urine Culture Indicated YES 02/16/21 18:52: Blood Gas Puncture Site L RADIAL, Blood Gas Patient Temperature 36.9, Arterial Blood pH 7.44H, Arterial Blood Partial Pressure CO2 43, Arterial Blood Partial Pressure O2 153H, Arterial Blood HCO3 29H, Arterial Blood Total CO2 29.9, Arterial Blood Oxygen Saturation 100, Arterial Blood Base Excess 4.6H, Cody Test YES-POS, Blood Gas Ventilator Setting NO, Blood Gas Inspired Oxygen 3 L 02/16/21 18:53: White Blood Count 9.1, Red Blood Count 4.18, Hemoglobin 13.7, Hematocrit 41, Mean Corpuscular Volume 99, Mean Corpuscular Hemoglobin 33, Mean Corpuscular He moglobin Concent 33, Red Cell Distribution Width 13.2, Platelet Count 224, Mean Platelet Volume 12.5H, Immature Granulocyte % (Auto) 0, Neutrophils (%) (Auto) 66, Lymphocytes (%) (Auto) 23, Monocytes (%) (Auto) 8, Eosinophils (%) (Auto) 2, Basophils (%) (Auto) 0, Neutrophils # (Auto) 6.0, Lymphocytes # (Auto) 2.0, Monocytes # (Auto) 0.7, Eosinophils # (Auto) 0.2, Basophils # (Auto) 0.0, Immature Granulocyte # (Auto) 0.0, Erythrocyte Sedimentation Rate 16, Sodium Level 142, Potassium Level 2.9L, Chloride Level 100, Carbon Dioxide Level 29, Anion Gap 13, Blood Urea Nitrogen 22H, Creatinine 1.11, Estimat Glomerular Filtration Rate 48, BUN/Creatinine Ratio 20, Glucose Level 110H, Calcium Level 10.2H, Corrected Calcium 10.4H, Magnesium Level 1.2L, Total Bilirubin 0.9, Aspartate Amino Transf (AST/SGOT) 15, Alanine Aminotransferase (ALT/SGPT) 11, Alkaline Phosphatase 52, Total Creatine Kinase 35, Creatine Kinase MB 1.3, Myoglobin 67.1, Troponin I < 0.028, C-Reactive Protein High Sensitivity 0.15, B- Type Natriuretic Peptide 81.7, Total Protein 6.3L, Albumin 3.7, Procalcitonin 0.06 02/16/21 20:56: Prothrombin Time 13.6, INR Comment 1.0, Activated Partial Thromboplast Time 28, Lactic Acid Level 0.72 02/17/21 06:00: White Blood Count 8.2, Red Blood Count 4.13, Hemoglobin 13.7, Hematocrit 41, Mean Corpuscular Volume 100H, Mean Corpuscular Hemoglobin 33, Mean Corpuscular Hemoglobin Concent 33, Red Cell Distribution Width 13.0, Platelet Count 204, Mean Platelet Volume 12.2, Immature Granulocyte % (Auto) 1, Neutrophils (%) (Auto) 89H, Lymphocytes (%) (Auto) 9L, Monocytes (%) (Auto) 1, Eosinophils (%) (Auto) 0, Basophils (%) (Auto) 0, Neutrophils # (Auto) 7.3, Lymphocytes # (Auto) 0.7L, Monocytes # (Auto) 0.1, Eosinophils # (Auto) 0.0, Basophils # (Auto) 0.0, Immature Granulocyte # (Auto) 0.0, Neutrophils % (Manual) 84, Lymphocytes % (Manual) 12, Monocytes % (Manual) 4, Eosinophils % (Manual) 0, Basophils % (Manual) 0, Band Neutrophils 0, Blood Morphology Comment NORMAL, Sodium Level 139, Potassium Level 4.4, Chloride Level 103, Carbon Dioxide Level 25, Anion Gap 11, Blood Urea Nitrogen 21H, Creatinine 1.17, Estimat Glomerular Filtration Rate 45, BUN/Creatinine Ratio 18, Glucose Level 247H, Calcium Level 9.5, Corrected Calcium 9.9, Total Bilirubin 0.5, Aspartate Amino Transf (AST/SGOT) 16, Alanine Aminotransferase (ALT/SGPT) 12, Alkaline Phosphatase 53, Total Protein 6.3L, Albumin 3.5 02/18/21 06:23: White Blood Count 16.9H, Red Blood Count 3.81, Hemoglobin 12.6, Hematocrit 38, Mean Corpuscular Volume 100H, Mean Corpuscular Hemoglobin 33, Mean Corpuscular Hemoglobin Concent 33, Red Cell Distribution Width 13.4, Platelet Count 192, Me an Platelet Volume 12.8H, Immature Granulocyte % (Auto) 1, Neutrophils (%) (Auto) 93H, Lymphocytes (%) (Auto) 3L, Monocytes (%) (Auto) 3, Eosinophils (%) (Auto) 0, Basophils (%) (Auto) 0, Neutrophils # (Auto) 15.7H, Lymphocytes # (Auto) 0.5L, Monocytes # (Auto) 0.5, Eosinophils # (Auto) 0.0, Basophils # (Auto) 0.0, Immature Granulocyte # (Auto) 0.2H, Neutrophils % (Manual) 95, Lymphocytes % (Manual) 3, Monocytes % (Manual) 1, Band Neutrophils 1, Blood Morphology Comment NORMAL, Sodium Level 143, Potassium Level 3.7, Chloride Level 107, Carbon Dioxide Level 22, Anion Gap 14, Blood Urea Nitrogen 18, Creatinine 1.06, Estimat Glomerular Filtration Rate 51, BUN/Creatinine Ratio 17, Glucose Level 238H, Calcium Level 9.2, Corrected Calcium 9.5, Total Bilirubin 0.3, Aspartate Amino Transf (AST/SGOT) 14, Alanine Aminotransferase (ALT/SGPT) 11, Alkaline Phosphatase 53, Total Protein 6.0L, Albumin 3.6, D-Dimer 0.35, Mean Blood Glucose 137H, Hemoglobin A1c 6.4H, Troponin I 0.065H, B-Type Natriuretic Peptide 275.5H 02/19/21 06:47: White Blood Count 13.9H, Red Blood Count 3.75L, Hemoglobin 12.4, Hematocrit 38, Mean Corpuscular Volume 101H, Mean Corpuscular Hemoglobin 33, Mean Corpuscular Hemoglobin Concent 33, Red Cell Distribution Width 13.5, Platelet Count 163, Mean Platelet Volume 12.0, Immature Granulocyte % (Auto) 2, Neutrophils (%) (Auto) 94H, Lymphocytes (%) (Auto) 2L, Monocytes (%) (Auto) 2, Eosinophils (%) (Auto) 0, Basophils (%) (Auto) 0, Neutrophils # (Auto) 13.0H, Lymphocytes # (Auto) 0.3L, Monocytes # (Auto) 0.3, Eosinophils # (Auto) 0.0, Basophils # (Auto) 0.0, Immature Granulocyte # (Auto) 0.2H, Sodium Level 143, Potassium Level 3.5L, Chloride Level 104, Carbon Dioxide Level 26, Anion Gap 13, Blood Urea Nitrogen 18, Creatinine 1.07, Estimat Glomerular Filtration Rate 50, BUN/Creatinine Ratio 17, Glucose Level 223H, Calcium Level 8.8, Corrected Calcium 9.3, Total Bilirubin 0.4, Aspartate Amino Transf (AST/SGOT) 12, Alanine Aminotransferase (ALT/SGPT) 8, Alkaline Phosphatase 54, Total Protein 5.8L, Albumin 3.4 02/20/21 06:13: White Blood Count 9.2, Red Blood Count 3.72L, Hemoglobin 12.4, Hematocrit 38, Mean Corpuscular Volume 101H, Mean Corpuscular Hemoglobin 33, Mean Corpuscular Hemoglobin Concent 33, Red Cell Distribution Width 13.2, Platelet Count 140, Mean Platelet Volume 12.3H, Immature Granulocyte % (Auto) 5, Neutrophils (%) (Auto) 90H, Lymphocytes (%) (Auto) 3L, Monocytes (%) (Auto) 2, Eosinophils (%) (Auto) 0, Basophils (%) (Auto) 0, Neutrophils # (Auto) 8.3H, Lymphocytes # (Auto) 0.3L, Monocytes # (Auto) 0.2, Eosinophils # (Auto) 0.0, Basophils # (Auto) 0.0, Immature Granulocyte # (Auto) 0.4H, Sodium Level 142, Potassium Le leta 3.5L, Chloride Level 102, Carbon Dioxide Level 29, Anion Gap 11, Blood Urea Nitrogen 24H, Creatinine 1.00, Estimat Glomerular Filtration Rate 55, BUN/Creatinine Ratio 24, Glucose Level 272H, Calcium Level 8.6, Corrected Calcium 9.2, Total Bilirubin 0.5, Aspartate Amino Transf (AST/SGOT) 13, Alanine Aminotransferase (ALT/SGPT) 10, Alkaline Phosphatase 53, Total Protein 5.4L, Albumin 3.2, Percent Immature Platelet Fraction 7.6 02/21/21 06:19: White Blood Count 7.0, Red Blood Count 3.96, Hemoglobin 13.0, Hematocrit 40, Mean Corpuscular Volume 101H, Mean Corpuscular Hemoglobin 33, Mean Corpuscular Hemoglobin Concent 33, Red Cell Distribution Width 12.7, Platelet Count 131, Mean Platelet Volume 11.6, Immature Granulocyte % (Auto) 3, Neutrophils (%) (Auto) 89H, Lymphocytes (%) (Auto) 4L, Monocytes (%) (Auto) 4, Eosinophils (%) (Auto) 0, Basophils (%) (Auto) 0, Neutrophils # (Auto) 6.3, Lymphocytes # (Auto) 0.3L, Monocytes # (Auto) 0.3, Eosinophils # (Auto) 0.0, Basophils # (Auto) 0.0, Immature Granulocyte # (Auto) 0.2H, Sodium Level 143, Potassium Level 4.0, Chloride Level 101, Carbon Dioxide Level 30, Anion Gap 12, Blood Urea Nitrogen 28H, Creatinine 1.06, Estimat Glomerular Filtration Rate 51, BUN/Creatinine Ratio 26, Glucose Level 261H, Calcium Level 8.6, Corrected Calcium 9.2, Total Bilirubin 0.5, Aspartate Amino Transf (AST/SGOT) 15, Alanine Aminotransferase (ALT/SGPT) 16, Alkaline Phosphatase 61, Total Protein 5.3L, Albumin 3.2 Microbiology 02/16/21 Blood Culture - Preliminary, Resulted No growth 02/16/21 Urine Culture - Final, Complete NO GROWTH Pending Labs Microbiology Date/Time Source Procedure Growth Status 02/16/21 20:56 Peripheral Lt Ac Blood Culture - Preliminary No growth Resulted 02/16/21 18:53 Peripheral Rt Ac Blood Culture - Preliminary No growth Resulted 02/16/21 18:34 Urine Clean Catch Urine Culture - Final NO GROWTH Complete Laboratory Tests 02/16/21 18:34: Urine Color DARK YELLOW, Urine Clarity CLEAR, Urine pH 7.0, Urine Specific Pratt 1.015, Urine Protein NEGATIVE, Urine Glucose (UA) NEGATIVE, Urine [place] es TRACE, Urine Nitrite NEGATIVE, Urine Bilirubin NEGATIVE, Urine Urobilinogen 2.0, Urine Leukocyte Esterase 2+, Urine RBC (Auto) NEGATIVE, Urine RBC 0-2, Urine WBC 10-25, Urine Squamous Epithelial Cells 0-2, Urine Renal Epithelial Cells NONE, Urine Crystals NONE, Urine Bacteria FEW, Urine Casts NONE, Urine Mucus NEGATIVE, Urine Culture Indicated YES 02/16/21 18:52: Blood Gas Puncture Site L RADIAL, Blood Gas Patient Temperature 36.9, Arterial Blood pH 7.44, Arterial Blood Partial Pressure CO2 43, Arterial Blood Partial Pressure O2 153, Arterial Blood HCO3 29, Arterial Blood Total CO2 29.9, Arterial Blood Oxygen Saturation 100, Arterial Blood Base Excess 4.6, Cody Test YES-POS, Blood Gas Ventilator Setting NO, Blood Gas Inspired Oxygen 3 L 02/16/21 18:53: White Blood Count 9.1, Red Blood Count 4.18, Hemoglobin 13.7, Hematocrit 41, Mean Corpuscular Volume 99, Mean Corpuscular Hemoglobin 33, Mean Corpuscular Hemoglobin Concent 33, Red Cell Distribution Width 13.2, Platelet Count 224, Mean Platelet Volume 12.5, Immature Granulocyte % (Auto) 0, Neutrophils (%) (Auto) 66, Lymphocytes (%) (Auto) 23, Monocytes (%) (Auto) 8, Eosinophils (%) (Auto) 2, Basophils (%) (Auto) 0, Neutrophils # (Auto) 6.0, Lymphocytes # (Auto) 2.0, Monocytes # (Auto) 0.7, Eosinophils # (Auto) 0.2, Basophils # (Auto) 0.0, Immature Granulocyte # (Auto) 0.0, Erythrocyte Sedimentation Rate 16, Sodium Level 142, Potassium Level 2.9, Chloride Level 100, Carbon Dioxide Level 29, Anion Gap 13, Blood Urea Nitrogen 22, Creatinine 1.11, Estimat Glomerular Filtration Rate 48, BUN/Creatinine Ratio 20, Glucose Level 110, Calcium Level 10.2, Corrected Calcium 10.4, Magnesium Level 1.2, Total Bilirubin 0.9, Aspartate Amino Transf (AST/SGOT) 15, Alanine Aminotransferase (ALT/SGPT) 11, Alkaline Phosphatase 52, Total Creatine Kinase 35, Creatine Kinase MB 1.3, Myoglobin 67.1, Troponin I < 0.028, C-Reactive Protein High Sensitivity 0.15, B- Type Natriuretic Peptide 81.7, Total Protein 6.3, Albumin 3.7, Procalcitonin 0.06 02/16/21 20:56: Prothrombin Time 13.6, INR Comment 1.0, Activated Partial Thromboplast Time 28, Lactic Acid Level 0.72 02/17/21 06:00: White Blood Count 8.2, Red Blood Count 4.13, Hemoglobin 13.7, Hematocrit 41, Mean Corpuscular Volume 100, Mean Corpuscular Hemoglobin 33, Mean Corpuscular Hemoglobin Concent 33, Red Cell Distribution Width 13.0, Platelet Count 204, Mean Platelet Volume 12.2, Immature Granulocyte % (Auto) 1, Neutrophils (%) (Auto) 89, Lymphocytes (%) (Auto) 9, Monocytes (%) (Auto) 1, Eosinophils (%) (Auto) 0, Basophils (%) (Auto) 0, Neutrophils # (Auto) 7.3, Lymphocytes # (Auto) 0.7, Monocytes # (Auto) 0.1, Eosinophils # (Auto) 0.0, Basophils # (Auto) 0.0, Immature Granulocyte # (Auto) 0.0, Neutrophils % (Manual) 84, Lymphocytes % (Manual) 12, Monocytes % (Manual) 4, Eosinophils % (Manual) 0, Basophils % (Manual) 0, Band Neutrophils 0, Blood Morphology Comment NORMAL, Sodium Level 139, Potassium Level 4.4, Chloride Level 103, Carbon Dioxide Level 25, Anion Gap 11, Blood Urea Nitrogen 21, Creatinine 1.17, Estimat Glomerular Filtration Rate 45, BUN/Creatinine Ratio 18, Glucose Level 247, Calcium Level 9.5, Corrected Calcium 9.9, Total Bilirubin 0.5, Aspartate Amino Transf (AST/SGOT) 16, Alanine Aminotransferase (ALT/SGPT) 12, Alkaline Phosphatase 53, Total Protein 6.3, Albumin 3.5 02/18/21 06:23: White Blood Count 16.9, Red Blood Count 3.81, Hemoglobin 12.6, Hematocrit 38, Mean Corpuscular Volume 100, Mean Corpuscular Hemoglobin 33, Mean Corpuscular Hemoglobin Concent 33, Red Cell Distribution Width 13.4, Platelet Count 192, Mean Platelet Volume 12.8, Immature Granulocyte % (Auto) 1, Neutrophils (%) (Auto) 93, Lymphocytes (%) (Auto) 3, Monocytes (%) (Auto) 3, Eosinophils (%) (Auto) 0, Basophils (%) (Auto) 0, Neutrophils # (Auto) 15.7, Lymphocytes # (Auto) 0.5, Monocytes # (Auto) 0.5, Eosinophils # (Auto) 0.0, Basophils # (Auto) 0.0, Immature Granulocyte # (Auto) 0.2, Neutrophils % (Manual) 95, Lymphocytes % (Manual) 3, Monocytes % (Manual) 1, Band Neutrophils 1, Blood Morphology Comment NORMAL, Sodium Level 143, Potassium Level 3.7, Chloride Level 107, Carbon Dioxide Level 22, Anion Gap 14, Blood Urea Nitrogen 18, Creatinine 1.06, Estimat Glomerular Filtration Rate 51, BUN/Creatinine Ratio 17, Glucose Level 238, Calcium Level 9.2, Corrected Calcium 9.5, Total Bilirubin 0.3, Aspartate Amino Transf (AST/SGOT) 14, Alanine Aminotransferase (ALT/SGPT) 11, Alkaline Phosphatase 53, Total Protein 6.0, Albumin 3.6, D-Dimer 0.35, Mean Blood Glucose 137, Hemoglobin A1c 6.4, Troponin I 0.065, B-Type Natriuretic Peptide 275.5 02/19/21 06:47: White Blood Count 13.9, Red Blood Count 3.75, Hemoglobin 12.4, Hematocrit 38, Mean Corpuscular Volume 101, Mean Corpuscular Hemoglobin 33, Mean Corpuscular Hemoglobin Concent 33, Red Cell Distribution Width 13.5, Platelet Count 163, Mean Platelet Volume 12.0, Immature Granulocyte % (Auto) 2, Neutrophils (%) (Auto) 94, Lymphocytes (%) (Auto) 2, Monocytes (%) (Auto) 2, Eosinophils (%) (Auto) 0, Basophils (%) (Auto) 0, Neutrophils # (Auto) 13.0, Lymphocytes # (Auto) 0.3, Monocytes # (Auto) 0.3, Eosinophils # (Auto) 0.0, Basophils # (Auto) 0.0, Immature Granulocyte # (Auto) 0.2, Sodium Level 143, Potassium Level 3.5, Chloride Level 104, Carbon Dioxide Level 26, Anion Gap 13, Blood Urea Nitrogen 18, Creatinine 1.07, Estimat Glomerular Filtration Rate 50, BUN/Creatinine Ratio 17, Glucose Level 223, Calcium Level 8.8, Corrected Calcium 9.3, Total Bilirubin 0.4, Aspartate Amino Transf (AST/SGOT) 12, Alanine Aminotransferase (ALT/SGPT) 8, Alkaline Phosphatase 54, Total Protein 5.8, Albumin 3.4 02/20/21 06:13: White Blood Count 9.2, Red Blood Count 3.72, Hemoglobin 12.4, Hematocrit 38, Mean Corpuscular Volume 101, Mean Corpuscular Hemoglobin 33, Mean Corpuscular Hemoglobin Concent 33, Red Cell Distribution Width 13.2, Platelet Count 140, Mean Platelet Volume 12.3, Immature Granulocyte % (Auto) 5, Neutrophils (%) (Auto) 90, Lymphocytes (%) (Auto) 3, Monocytes (%) (Auto) 2, Eosinophils (%) (Auto) 0, Basophils (%) (Auto) 0, Neutrophils # (Auto) 8.3, Lymphocytes # (Auto) 0.3, Monocytes # (Auto) 0.2, Eosinophils # (Auto) 0.0, Basophils # (Auto) 0.0, Immature Granulocyte # (Auto) 0.4, Sodium Level 142, Potassium Level 3.5, Chloride Level 102, Carbon Dioxide Level 29, Anion Gap 11, Blood Urea Nitrogen 24, Creatinine 1.00, Estimat Glomerular Filtration Rate 55, BUN/Creatinine Ratio 24, Glucose Level 272, Calcium Level 8.6, Corrected Calcium 9.2, Total Bilirubin 0.5, Aspartate Amino Transf (AST/SGOT) 13, Alanine Aminotransferase (ALT/SGPT) 10, Alkaline Phosphatase 53, Total Protein 5.4, Albumin 3.2, Percent Immature Platelet Fraction 7.6 02/21/21 06:19: White Blood Count 7.0, Red Blood Count 3.96, Hemoglobin 13.0, Hematocrit 40, Mean Corpuscular Volume 101, Mean Corpuscular Hemoglobin 33, Mean Corpuscular Hemoglobin Concent 33, Red Cell Distribution Width 12.7, Platelet Count 131, Mean Platelet Volume 11.6, Immature Granulocyte % (Auto) 3, Neutrophils (%) (Auto) 89, Lymphocytes (%) (Auto) 4, Monocytes (%) (Auto) 4, Eosinophils (%) (Auto) 0, Basophils (%) (Auto) 0, Neutrophils # (Auto) 6.3, Lymphocytes # (Auto) 0.3, Monocytes # (Auto) 0.3, Eosinophils # (Auto) 0.0, Basophils # (Auto) 0.0, Immature Granulocyte # (Auto) 0.2, Sodium Level 143, Potassium Level 4.0, Chloride Level 101, Carbon Dioxide Level 30, Anion Gap 12, Blood Urea Nitrogen 28, Creatinine 1.06, Estimat Glomerular Filtration Rate 51, BUN/Creatinine Ratio 26, Glucose Level 261, Calcium Level 8.6, Corrected Calcium 9.2, Total Bilirubin 0.5, Aspartate Amino Transf (AST/SGOT) 15, Alanine Aminotransferase (ALT/SGPT) 16, Alkaline Phosphatase 61, Total Protein 5.3, Albumin 3.2 Discharge Home Medications: Active Scripts Active Prednisone 10 Mg Tab.ds.pk 10 Mg PO DAILY Take 6 tabs(60mg)daily,decrease by 1 tab(10MG)daily. Cefdinir 300 Mg Capsule 300 Mg PO BID Ondansetron Odt (Ondansetron) 4 Mg Tab.rapdis 4 Mg PO Q6H PRN Montelukast Sodium 10 Mg Tablet 10 Mg PO HS Fluticasone-Salmeterol 113-14 (Fluticasone/Salmeterol) 1 Each Aer.pow.ba 0 Each IH RTBID Metoprolol Succinate 25 Mg Tab.er.24h 25 Mg PO DAILY Loratadine 10 Mg Tablet 10 Mg PO DAILY Cyclosporine Modified (Cyclosporine, Modified) 100 Mg Capsule 100 Mg PO BID TAKES 100MG+25MG TO EQUAL 125MG AM, AND 100MG +50MG TO EQUAL 150MG PM Cyclosporine Modified (Cyclosporine, Modified) 25 Mg Capsule 50 Mg PO HS TAKES 2 (25MG) CAPS ALONG WITH 100MG TO EQUAL 150MG PM Cyclosporine Modified (Cyclosporine, Modified) 25 Mg Capsule 25 Mg PO DAILY TAKES 25MG +100MG TO EQUAL 125MG AM Ventolin Hfa (Albuterol Sulfate) 18 Gm Hfa.aer.ad 2 Puff INH Q6H PRN Reported Eye Multivitamin Tablet (Vit A/Vit C/Vit E/Zinc/Copper) 1 Each Tablet 1 Each PO DAILY Calcium 600 + Vit D 400 Tablet (Calcium Carbonate/Vitamin D3) 1 Each Tablet 1 Each PO BID Prednisone 5 Mg Tablet 5 Mg PO DAILY Imuran (Azathioprine) 50 Mg Tablet 75 Mg PO DAILY TAKES 1 & (50MG) TABS Levothyroxine Sodium 75 Mcg Tablet 37.5 Mcg PO DAILY TAKES OF A 37.5MG TAB Quetiapine Fumarate 50 Mg Tablet 25 Mg PO HS TAKES OF A 50MG Alendronate Sodium 70 Mg Tablet 70 Mg PO MON Dapsone 25 Mg Tablet 25 Mg PO MO,WE,FR Amlodipine Besylate 5 Mg Tablet 5 Mg PO DAILY Duloxetine HCl 60 Mg Capsule.dr 60 Mg PO DAILY Duloxetine HCl 30 Mg Capsule.dr 30 Mg PO HS Pantoprazole Sodium 40 Mg Tablet.dr 40 Mg PO DAILY Instructions to patient/family Please see electronic discharge instructions given to patient. JOSE ALEJANDRO DO Feb 21, 2021 14:18
[2021-02-21 15:33] VITALS: BP 159/84
[2021-02-21] MEDS ORDERED: [UNRECOGNIZED DRUG - REMARK] PO SCH (21:00)
[2021-02-21] MEDS ORDERED: RT-ALBUTEROL HFA 8.5 GM INHALER IH SCH (21:00)
[2021-02-22] MEDS ORDERED: [UNRECOGNIZED DRUG - REMARK] PO SCH (09:00)
== END 2021-02-21 16:15 | disposition home or self-care (01) | DRG 190 ==
LOC: EDUNIT# 18:19 → ER 18:27 → 4TH 20:45
PROVIDERS: ADMIT Internal Medicine; ATTEND Internal Medicine
DX: J44.1 Chronic obstructive pulmonary disease with (acute) exacerbation (principal); I21.A1 Myocardial infarction type 2; N39.0 Urinary tract infection, site not specified; Z94.2 Lung transplant status; D84.9 Immunodeficiency, unspecified; R11.0 Nausea; I10 Essential (primary) hypertension; K21.9 Gastro-esophageal reflux disease without esophagitis; E03.9 Hypothyroidism, unspecified; F32.A Depression, unspecified; R09.02 Hypoxemia; G47.00 Insomnia, unspecified; E78.00 Pure hypercholesterolemia, unspecified; M81.0 Age-related osteoporosis without current pathological fracture; Z87.891 Personal history of nicotine dependence; Z90.49 Acquired absence of other specified parts of digestive tract; R06.89 Other abnormalities of breathing; R19.7 Diarrhea, unspecified; E86.0 Dehydration; J06.9 Acute upper respiratory infection, unspecified; E11.9 Type 2 diabetes mellitus without complications; F41.9 Anxiety disorder, unspecified
CPT/HCPCS: 36415; 71045; 71275; 80053; 81000; 82550; 82553; 82805; 83036; 83605; 83735; 83874; 83880; 84145; 84484; 85007; 85025; 85027; 85379; 85610; 85652; 85730; 86141; 87015; 87040; 87045; 87046; 87088; 87328; 87329; 87899; 93005; 93041; 93306; 94640; 94760; 96361; 96374; 96375

== ENCOUNTER 2021-03-03 14:46 | Emergency (ER) | payer MEDICARE ==
[~2021-03-03] VITALS: Ht 152 cm; Wt 45.5 kg
[~2021-03-03 14:46] MED LIST changes: +ALBU18HF2 INH; +ALEN70TA80 PO; +AMLO-250 PO; +AZAT50TA16 PO; +CALC-1026 PO; +CEFD300C3 PO; +CYCL25CA24 PO; +DAPS25TA2 PO; +DULO30CA49 PO; +DULO60CA59 PO; +FLUT1AER4 IH; +LEVO75TA6 PO; +LORA10TA7 PO; +MONT-40 PO; +MTP25TSR PO; +ONDA4TAB11 PO; +PANT40TA52 PO; +PRED10TA22 PO; +PRED5TAB PO; +QUET50TA23 PO; +VIT-31 PO; +[UNRECOGNIZED DRUG - CODE] PO
[2021-03-03 14:53] VITALS: BP 126/87
[2021-03-03] MEDS ORDERED: ACETAMINOPHEN 325 MG TABLET PO ONE (15:00)
[2021-03-03 15:10] LABS: BASOPHILS % (AUTO) 0 % (0-10)
--- NOTE | 2021-03-03 15:11 | ED Cough/URI ---
General Chief Complaint: COVID19 Suspect/Confirmed Stated Complaint: SOB Source: patient Exam Limitations: no limitations (ALMAS MAGANA APRN) History of Present Illness Date Seen by Provider: Mar 03, 2021 Time Seen by Provider: 15:11 Initial Comments To ER by EMS from home with reports of shortness of breath and COVID-positive. She was seen here about 1.5 weeks ago for general malaise. She tested negative for COVID and was found to have a UTI. She completed antibiotics for that and the urinary symptoms have subsided. However she continues to feel generally poorly. She took a home COVID test today and found it to be positive. She does not feel any better or worse today than usual but is concerned because she tested positive for COVID giving her respiratory history. 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 She is on daily immunosuppressive medications (prednisone 5 mg, azathioprine, cyclosporine). She is visiting here from [place]. Timing/Duration: constant Severity/Quality: productive cough Associated Symptoms: cough, shortness of breath (ALMAS MAGANA APRN) Allergies and Home Medications Allergies Coded Allergies: Sulfa (Sulfonamide Antibiotics) (Verified Allergy, Unknown, 10/05/18) Patient Home Medication List Home Medication List Reviewed: Yes (ALMAS MAGANA APRN) Albuterol Sulfate (Ventolin Hfa) 18 Gm Hfa.aer.ad, 2 PUFF INH Q6H PRN for SHORTNESS OF BREATH Prescribed by: JOSE ALEJANDRO on 02/21/21 1417 Alendronate Sodium (Alendronate Sodium) 70 Mg Tablet, 70 MG PO MON, (Reported) Entered as Reported by: LIA GONZALEZ on 02/17/21 1105 Amlodipine Besylate (Amlodipine Besylate) 5 Mg Tablet, 5 MG PO DAILY, (Reported) Entered as Reported by: JOSE ALEJANDRO on 02/17/21 1018 Azathioprine (Imuran) 50 Mg Tablet, 75 MG PO DAILY, (Reported) Entered as Reported by: LIA GONZALEZ on 02/17/21 1105 Calcium Carbonate/Vitamin D3 (Calcium 600 + Vit D 400 Tablet) 1 Each Tablet, 1 EACH PO BID, (Reported) Entered as Reported by: LIA GONZALEZ on 02/17/21 1105 Cefdinir (Cefdinir) 300 Mg Capsule, 300 MG PO BID Prescribed by: JOSE ALEJANDRO on 02/21/211416 Cyclosporine, Modified (Cyclosporine Modified) 25 Mg Capsule, 25 MG PO DAILY Prescribed by: JOSE ALEJANDRO on 02/21/211416 Cyclosporine, Modified (Cyclosporine Modified) 25 Mg Capsule, 50 MG PO HS Prescribed by: JOSE ALEJANDRO on 02/21/211416 Cyclosporine, Modified (Cyclosporine Modified) 100 Mg Capsule, 100 MG PO BID Prescribed by: JOSE ALEJANDRO on 02/21/211416 Dapsone (Dapsone) 25 Mg Tablet, 25 MG PO MO,WE,FR, (Reported) Entered as Reported by: LIA GONZALEZ on 02/17/21 110 Duloxetine HCl (Duloxetine HCl) 30 Mg Capsule.dr, 30 MG PO HS, (Reported) Entered as Reported by: JOSE ALEJANDRO on 02/17/21 101 Duloxetine HCl (Duloxetine HCl) 60 Mg Capsule.dr, 60 MG PO DAILY, (Reported) Entered as Reported by: JOSE ALEJANDRO on 02/17/21 101 Fluticasone/Salmeterol (Fluticasone-Salmeterol 113-14) 1 Each Aer.pow.ba, 0 EACH IH RTBID Prescribed by: JOSE ALEJANDRO on 02/21/211416 Levothyroxine Sodium (Levothyroxine Sodium) 75 Mcg Tablet, 37.5 MCG PO DAILY, (Reported) Entered as Reported by: LIA GONZALEZ on 02/17/21 110 Loratadine (Loratadine) 10 Mg Tablet, 10 MG PO DAILY Prescribed by: JOSE ALEJANDRO on 02/21/211416 Metoprolol Succinate (Metoprolol Succinate) 25 Mg Tab.er.24h, 25 MG PO DAILY Prescribed by: JOSE ALEJANDRO on 02/21/211416 Montelukast Sodium (Montelukast Sodium) 10 Mg Tablet, 10 MG PO HS Prescribed by: JOSE ALEJANDRO on 02/21/211416 Ondansetron (Ondansetron Odt) 4 Mg Tab.rapdis, 4 MG PO Q6H PRN for NAUSEA/VOMITING-1ST LINE Prescribed by: JOSE ALEJANDRO on 02/21/211416 Pantoprazole Sodium (Pantoprazole Sodium) 40 Mg Tablet.dr, 40 MG PO DAILY, (Reported) Entered as Reported by: JOSE ALEJANDRO on 02/17/21 1018 Prednisone (Prednisone) 5 Mg Tablet, 5 MG PO DAILY, (Reported) Entered as Reported by: LIA GONZALEZ on 02/17/21 1105 Prednisone (Prednisone) 10 Mg Tab.ds.pk, 10 MG PO DAILY Prescribed by: JOSE ALEJANDRO on 02/21/21 1417 Quetiapine Fumarate (Quetiapine Fumarate) 50 Mg Tablet, 25 MG PO HS, (Reported) Entered as Reported by: LIA GONZALEZ on 02/17/21 1105 Vit A/Vit C/Vit E/Zinc/Copper (Eye Multivitamin Tablet) 1 Each Tablet, 1 EACH PO DAILY, (Reported) Entered as Reported by: LIA GONZALEZ on 02/17/21 1105 Review of Systems Review of Systems Constitutional: see HPI EENTM: see HPI Respiratory: see HPI, cough Cardiovascular: no symptoms reported Genitourinary: no symptoms reported Musculoskeletal: no symptoms reported Skin: no symptoms reported Psychiatric/Neurological: No Symptoms Reported Hematologic/Lymphatic: No Symptoms Reported Immunological/Allergic: no symptoms reported (ALMAS MAGANA APRN) Past Yhcvvxe-Gllhhc-Zhhljb Hx Patient Social History Tobacco Use?: No Smoking Status: Former Smoker Substance use?: No Alcohol Use?: No Pt feels they are or have been: No (ALMAS MAGANA APRN) Immunizations Up To Date Influenza Vaccine Up-to-Date: Yes; Up-to-Date First/Initial COVID19 Vaccinat: 2020 Second COVID19 Vaccination Jerome: 2020 Third COVID19 Vaccination Date: 2020 (ALMAS MAGANA APRN) Past Medical History Surgery/Hospitalization HX: LUNG TRANSPLANT, HTN Surgeries: Yes Abdominal, Bowel Surgery, Gallbladder, Pneumonectomy, Thyroidectomy Respiratory: Yes COPD, Pulmonary Fibrosis Cardiac: Yes Hypertension 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: Menopausal Genitourinary: Yes Bladder Infection Gastrointestinal: Yes Gastroesophageal Reflux Musculoskeletal: Yes Osteoporosis, Arthritis Endocrine: Yes Hypothyroidsim HEENT: Yes Loss of Vision: Bilateral Hearing Impairment: Denies Cancer: No Psychosocial: Yes Depression Integumentary: Yes (shingles) Blood Disorders: No (ALMAS MAGANA APRN) Family Medical History Cancer (ALMAS MAGANA APRN) Physical Exam Vital Signs - First Documented 03/03/21 14:53 Temp 37.4 Pulse 97 Resp 20 B/P (MAP) 126/87 (100) Pulse Ox 94 O2 Delivery Room Air (BREEZY MARTÍNEZ MD) Capillary Refill : (ALMAS MAGANA APRN) Height: 5'0" Weight: 100lbs. 0oz. 45.701412hc; 19.56 BMI Method:Actual General Appearance: WD/WN, no apparent distress, thin, other (No distress 94% on room air.) Eyes: Bilateral Eye Normal Inspection, Bilateral Eye PERRL Neck: non-tender, full range of motion Respiratory: no respiratory distress, no accessory muscle use, other (Right lung is diminished though this is her [place] lung with known COPD. Left lung has good air movement.) Cardiovascular: regular rate, rhythm, no murmur Gastrointestinal: normal bowel sounds, non tender, soft Extremities: normal range of motion, non-tender Neurologic/Psychiatric: alert, normal mood/affect, oriented x 3 Skin: normal color, warm/dry (ALMAS MAGANA APRN) Focused Exam Lactate Level 03/03/21 15:08: Lactic Acid Level 1.65 (BREEZY MARTÍNEZ MD) Lactic Acid Level Laboratory Tests Test 03/03/21 15:08 Lactic Acid Level 1.65 MMOL/L (0.50-2.00) (BREEZY MARTÍNEZ MD) Progress/Results/Core Measures Suspected Sepsis SIRS Temperature: Pulse: Respiratory Rate: Laboratory Tests 03/03/21 15:00: White Blood Count 7.0 Blood Pressure / Mean: 03/03/21 15:08: Lactic Acid Level 1.65 Laboratory Tests 03/03/21 15:00: Creatinine 1.14, Platelet Count 114L, Total Bilirubin 0.6 03/03/21 16:06: INR Comment 1.0 (ALMAS MAGANA APRN) Results/Orders Lab Results Laboratory Tests Test 03/03/21 15:00 03/03/21 15:08 03/03/21 16:06 Range/Units White Blood Count 7.0 4.3-11.0 10^3/uL Red Blood Count 3.63 L 3.80-5.11 10^6/uL Hemoglobin 12.0 11.5-16.0 g/dL Hematocrit 36 35-52 % Mean Corpuscular Volume 99 80-99 fL Mean Corpuscular Hemoglobin 33 25-34 pg Mean Corpuscular Hemoglobin Concent 33 32-36 g/dL Red Cell Distribution Width 13.9 10.0-14.5 % Platelet Count 114 L 130-400 10^3/uL Mean Platelet Volume 12.4 H 9.0-12.2 fL Immature Granulocyte % (Auto) 1 % Neutrophils (%) (Auto) 76 H 42-75 % Lymphocytes (%) (Auto) 13 12-44 % Monocytes (%) (Auto) 9 0-12 % Eosinophils (%) (Auto) 1 0-10 % Basophils (%) (Auto) 0 0-10 % Neutrophils # (Auto) 5.3 1.8-7.8 10^3/uL Lymphocytes # (Auto) 0.9 L 1.0-4.0 10^3/uL Monocytes # (Auto) 0.6 0.0-1.0 10^3/uL Eosinophils # (Auto) 0.1 0.0-0.3 10^3/uL Basophils # (Auto) 0.0 0.0-0.1 10^3/uL Immature Granulocyte # (Auto) 0.1 0.0-0.1 10^3/uL Percent Immature Platelet Fraction 7.3 0.0-7.6 % Sodium Level 141 135-145 MMOL/L Potassium Level 3.4 L 3.6-5.0 MMOL/L Chloride Level 106 98-107 MMOL/L Carbon Dioxide Level 21 21-32 MMOL/L Anion Gap 14 5-14 MMOL/L Blood Urea Nitrogen 14 7-18 MG/DL Creatinine 1.14 0.60-1.30 MG/DL Estimat Glomerular Filtration Rate 51 BUN/Creatinine Ratio 12 Glucose Level 142 H 70-105 MG/DL Calcium Level 8.3 L 8.5-10.1 MG/DL Corrected Calcium 8.9 8.5-10.1 MG/DL Total Bilirubin 0.6 0.1-1.0 MG/DL Aspartate Amino Transf (AST/SGOT) 14 5-34 U/L Alanine Aminotransferase (ALT/SGPT) 13 0-55 U/L Alkaline Phosphatase 57 40-136 U/L Lactate Dehydrogenase 208 125-220 U/L Troponin I < 0.028 <0.028 NG/ML C-Reactive Protein High Sensitivity 1.67 H 0.00-0.50 MG/DL Total Protein 5.6 L 6.4-8.2 GM/DL Albumin 3.2 3.2-4.5 GM/DL Procalcitonin 0.08 <0.10 NG/ML Influenza Type A (RT-PCR) Not Detected Not Detecte Influenza Type B (RT-PCR) Not Detected Not Detecte SARS-CoV-2 RNA (RT-PCR) Detected H Not Detecte Lactic Acid Level 1.65 0.50-2.00 MMOL/L Prothrombin Time 13.3 12.2-14.7 SEC INR Comment 1.0 0.8-1.4 Activated Partial Thromboplast Time 28 24-35 SEC Fibrinogen 500 H 221-496 MG/DL D-Dimer 0.25 0.00-0.49 UG/ML (BREEZY MARTÍNEZ MD) Medications Given in ED Current Medications Medications Dose Ordered Sig/Pooja Route Start Time Stop Time Status Last Admin Dose Admin Acetaminophen 650 mg ONCE ONCE PO 03/03/21 15:00 03/03/21 15:01 DC 03/03/21 15:14 650 MG (BREEZY MARTÍNEZ MD) Vital Signs/I&O 03/03/21 14:53 Temp 37.4 Pulse 97 Resp 20 B/P (MAP) 126/87 (100) Pulse Ox 94 O2 Delivery Room Air (BREEZY MARTÍNEZ MD) Vital Signs/I&O Capillary Refill : (ALMAS MAGANA APRN) Departure Communication (Admissions) 1640-her D-dimer is negative. Her oxygen saturation is greater than 92% on room air during her entire ER stay. She does not qualify for home oxygen. The onset of her respiratory symptoms is unclear though she was -1.5 weeks ago. She will not qualify for monoclonal antibody because of that. NAME: JAY JAY VÁSQUEZ [facility] REC#: [id number] PT STATUS: REG ER : 1950 PHYSICIAN: ALMAS MAGANA APRN ADMIT DATE: 03/03/21/ER Draft Date of Exam:03/03/21 CHEST 1 VIEW, AP/PA ONLY INDICATION: Shortness of breath. TIME OF EXAM: 3:36 p.m. COMPARISON: Correlation is made with prior chest 02/18/2021. FINDINGS: Heart size is stable. Asymmetry in lung volumes persist, right lung being greater. No infiltrates are seen. There is no parenchymal consolidation. No effusion or pneumothorax is seen. There are surgical clips in the mediastinum and left hilum. IMPRESSION: Stable appearance of the chest since exam from 02/18/2021. No acute abnormality is detected. Dictated on workstation # [id number] Dict: 03/03/21 1534 Trans: 03/03/21 1543 [id number] Interpreted by: LEV FOUNTAIN MD Electronically signed by: (ALMAS MAGANA APRN) Impression Primary Impression: COVID-19 Additional Impressions: COPD (chronic obstructive pulmonary disease) History of lung transplant Disposition: HOME, SELF-CARE Condition: Stable Departure-Patient Inst. Decision time for Depature: 16:59 (ALMAS MAGANA APRN) Referrals: NO,LOCAL PHYSICIAN (PCP/Family) Primary Care Physician Patient Instructions: COVID-19 (DC) Add. Discharge Instructions: 1. Return to ER for high fever, severe shortness of breath, or oxygen below 90%. Continue all current medications. All discharge instructions reviewed with patient and/or family. Voiced understanding. ATTENDING PHYSICIAN NOTE: I was physically present as attending physician in the emergency department during the care of this patient, but I was not directly involved in the decision making or delivery of care for this patient. (BREEZY MARTÍNEZ MD) ALMAS MAGANA APRN Mar 03, 2021 15:11 BREEZY MARTÍNEZ MD Mar 03, 2021 19:16
[2021-03-03 15:12] LABS: EOSINOPHILS # (AUTO) 0.1 10^3/uL (0.0-0.3); EOSINOPHILS % (AUTO) 1 % (0-10); HEMATOCRIT 36 % (35-52); LYMPHOCYTES # (AUTO) 0.9 10^3/uL (1.0-4.0); LYMPHOCYTES % (AUTO) 13 % (12-44); MEAN CORPUSCULAR HEMOGLOBIN 33 pg (25-34); MEAN CORPUSCULAR HGB CONC 33 g/dL (32-36); MEAN CORPUSCULAR VOLUME 99 fL (80-99); MEAN PLATELET VOLUME 12.4 fL (9.0-12.2); MONOCYTES # (AUTO) 0.6 10^3/uL (0.0-1.0); MONOCYTES % (AUTO) 9 % (0-12); NEUTROPHILS # (AUTO) 5.3 10^3/uL (1.8-7.8); NEUTROPHILS % (AUTO) 76 % (42-75); PLATELET COUNT 114 10^3/uL (130-400)
[2021-03-03 15:22] LABS: ALBUMIN 3.2 GM/DL (3.2-4.5); CHLORIDE 106 MMOL/L (98-107); POTASSIUM 3.4 MMOL/L (3.6-5.0); SODIUM 141 MMOL/L (135-145)
[2021-03-03 15:24] LABS: CALCIUM 8.3 MG/DL (8.5-10.1)
[2021-03-03 15:25] LABS: GLUCOSE 142 MG/DL (70-105); TOTAL PROTEIN 5.6 GM/DL (6.4-8.2)
[2021-03-03 15:26] LABS: CARBON DIOXIDE 21 MMOL/L (21-32)
[2021-03-03 15:27] LABS: BILIRUBIN,TOTAL 0.6 MG/DL (0.1-1.0)
[2021-03-03 15:28] LABS: ALKALINE PHOSPHATASE 57 U/L (40-136)
[2021-03-03 15:29] LABS: CREATININE SERUM 1.14 MG/DL (0.60-1.30); GFR ESTIMATED 51
[2021-03-03 15:30] LABS: BUN/CREATININE RATIO 12
[2021-03-03 15:31] LABS: ALANINE AMINOTRANSFERASE 13 U/L (0-55)
--- NOTE | 2021-03-03 15:44 | Diagnostic Imaging Report ---
INDICATION: Shortness of breath. TIME OF EXAM: 3:36 p.m. COMPARISON: Correlation is made with prior chest 02/18/2021. FINDINGS: Heart size is stable. Asymmetry in lung volumes persist, right lung being greater. No infiltrates are seen. There is no parenchymal consolidation. No effusion or pneumothorax is seen. There are surgical clips in the mediastinum and left hilum. IMPRESSION: Stable appearance of the chest since exam from 02/18/2021. No acute abnormality is detected. Dictated by: Dictated on workstation # [id number]
[2021-03-03 16:33] LABS: FIBRIN DEGRADATION PRODUCTS 0.25 UG/ML (0.00-0.49); PROTHROMBIN TIME PATIENT 13.3 SEC (12.2-14.7)
== END 2021-03-03 17:05 | disposition home or self-care (01) ==
LOC: EDUNIT# 14:46 → ER 14:50
DX: U07.1 COVID-19 (principal); J44.9 Chronic obstructive pulmonary disease, unspecified; I10 Essential (primary) hypertension; E03.9 Hypothyroidism, unspecified; F32.9 Major depressive disorder, single episode, unspecified; K21.9 Gastro-esophageal reflux disease without esophagitis; Z87.891 Personal history of nicotine dependence; Z79.890 Hormone replacement therapy; Z79.899 Other long term (current) drug therapy
CPT/HCPCS: 36415; 71045; 80053; 82728; 83605; 83615; 84145; 84484; 85025; 85379; 85384; 85610; 85730; 86141; 87040; 87636; 93041